=== PATIENT | female | born 1950 | race Caucasian/White ===

== ENCOUNTER 2016-03-28 13:10 | Emergency (ER) | payer MEDICARE ==
[2016-03-28] MEDS ORDERED: BABY ASPIRIN 81 MG CHEW PO ONE (13:27)
[2016-03-28] MEDS ORDERED: Lopressor 25MG Tab PO ONE (13:27)
[2016-03-28] MEDS ORDERED: NITRO-BID 2% UD PACKETS TOP ONE (13:27)
[2016-03-28] MEDS ORDERED: Sodium Chloride 0.9% 1000 ML 1,000 ML IV SCH (13:30)
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
[2016-03-28] MEDS ORDERED: Sodium Chloride 0.9% 1000 ML 1,000 ML ONE (13:38)
[2016-03-28] MEDS ORDERED: NITRO-BID 2% UD PACKETS ONE (13:38)
[2016-03-28] MEDS ORDERED: Lopressor 25MG Tab ONE (13:38)
[2016-03-28] MEDS ORDERED: Ativan 1 MG PO ONE (13:45)
[2016-03-28] MEDS ORDERED: Ativan 1 MG ONE (13:46)
--- NOTE | 2016-03-28 13:56 | XRAY ---
Indication: Chest pain. Comparison: July 28, 2014 Portable chest again demonstrates normal heart and lungs with a few calcified granulomas. Bony thorax intact with stable mild osteopenia and degenerative changes.
[2016-03-28 14:02] LABS: INR 0.88 (0.8-3.0); PROTIME 9.9 SECONDS (9.95-12.35)
[2016-03-28 14:18] LABS: ALBUMIN 3.6 g/dL (3.4-5.0); ALKALINE PHOSPHATASE 60 U/L (46-116); ANION GAP 15.2 MEQ/L (5-15); BILIRUBIN,TOTAL 0.2 mg/dL (0.2-1.0); BLOOD UREA NITROGEN 12 mg/dL (9-20); CHLORIDE 104 mEq/L (98-107); Carbon Dioxide 27.1 mEq/L (21-32); Glucose 117 MG/DL (70-110); Potassium 3.7 mEq/L (3.5-5.1); SGOT/AST 28 U/L (15-37); SGPT/ALT 27 U/L (12-78); SODIUM 143 mEq/L (136-145); Total Protein 6.9 gm/dL (6.4-8.2)
[2016-03-28 14:40] LABS: BASOPHIL % 0.5 % (0.0-0.4); Eosinophil % 2.8 % (0.00-5.0); Granulocytes % 49.2 % (36.0-66.0); Lymphocytes % 36.5 % (24.0-44.0); Mean Cell Volume 91.6 fl (78-100); Mean Platelet Volume 10.6 fl (6-9.5); Platelet Count 358 K/mm3 (150-450); Red Blood Count 3.91 M/mm3 (4.1-5.4); Red Cell Distribution Width 13.7 % (11.5-14.0); White Blood Count 8.8 K/mm3 (4.0-10.5)
[2016-03-28 14:43] LABS: Mean Corpuscular Hemoglobin 30.1 pg (26-32)
[2016-03-28 16:11] VITALS: BP 110/62; PULSE 69; O2SAT 98
== END 2016-03-28 16:30 | disposition short-term general hospital (02) ==
LOC: ED 13:10
DX: I21.3 ST elevation (STEMI) myocardial infarction of unspecified site (principal); R79.89 Other specified abnormal findings of blood chemistry; R07.9 Chest pain, unspecified; Z79.82 Long term (current) use of aspirin; Z79.899 Other long term (current) drug therapy; I50.9 Heart failure, unspecified; I10 Essential (primary) hypertension; I25.2 Old myocardial infarction
CPT/HCPCS: 36000; 36415; 71010; 80053; 83880; 84484; 85025; 85379; 85610; 93041; 96360; 96361; 99284; 99285

== ENCOUNTER 2016-11-18 23:11 | Emergency (ER) | payer MEDICARE ==
--- NOTE | 2016-11-18 23:56 | ERPHSYRPT ---
- History of Present Illness Time Seen by Provider: 11/18/16 23:21 Source: patient Exam Limitations: no limitations Patient Subjective Stated Complaint: pt states she thinks she has shingles in her ear. Triage Nursing Assessment: pt alert and oriented, asnwers questions approp. pt ambulatory with steady gait noted. respirations nonlabored with lungs cta. skin pink warm and dry. lt external ear canal with redness noted and small scabbed area behind ear. no drainage noted from ear or scabbed area. Physician History: PT HAS HAD LEFT EAR PAIN/RASH SINCE YESTERDAY. PT DENIES FEVER, VOMITING, COUGH , CHEST PAIN. Allergies/Adverse Reactions: codeine Adverse Reaction (Intermediate, Verified 03/28/16 13:22) Vomiting Home Medications: Estrogens,Conjugated [Premarin] 0 gm VG DAILY 07/28/14 [History] Gabapentin [Neurontin] 800 mg PO QID 07/28/14 [History] Aspirin [Aspir-Low] 81 mg DAILY 03/28/16 [History] Atorvastatin Calcium [Lipitor] DAILY 03/28/16 [History] Clopidogrel Bisulfate 75 mg [PLAVIX 75 MG Tablet] 75 mg DAILY 03/28/16 [ History] Lisinopril DAILY 03/28/16 [History] Fluticasone Propionate [Flovent Diskus] 50 mcg IH DAILY 11/18/16 [History] Metoprolol Tartrate 25 mg [Lopressor 25MG Tab] 25 mg PO BID 11/18/16 [ History] Hx Tetanus, Diphtheria Vaccination/Date Given: Yes Hx Influenza Vaccination/Date Given: No Hx Pneumococcal Vaccination/Date Given: No Immunizations Up to Date: Yes - Review of Systems Ears, Nose, & Throat: Ear Pain Skin: Rash All Other Systems: Reviewed and Negative - Past Medical History Pertinent Past Medical History: Yes Neurological History: No Pertinent History ENT History: No Pertinent History Cardiac History: Congestive Heart Failure, Hypertension, Myocardial Infarction ( NM) Respiratory History: No Pertinent History Endocrine Medical History: No Pertinent History Musculoskeletal History: Other GI Medical History: GERD History: No Pertinent History Psycho-Social History: No Pertinent History Female Reproductive Disorders: No Pertinent History Other Medical History: chronic pain neck pain - Past Surgical History Past Surgical History: Yes Neuro Surgical History: No Pertinent History Cardiac: Cardiac Catheterization, Cardiac Stent Respiratory: No Pertinent History Gastrointestinal: No Pertinent History Musculoskeletal: Orthopedic Surgery Female Surgical History: Section, Hysterectomy Other Surgical History: NECK - Social History Smoking Status: Never smoker Exposure to second hand smoke: No Alcohol Use: None Drug Use: none Patient Lives Alone: Yes Significant Family History: heart disease, hypertension - Nursing Vital Signs Nursing Vital Signs: Initial Vital Signs Temperature 98.7 F 11/18/16 23:20 Pulse Rate 70 11/18/16 23:20 Respiratory Rate 16 11/18/16 23:20 Blood Pressure 162/83 11/18/16 23:20 O2 Sat by Pulse Oximetry 100 11/18/16 23:20 Pain Scale Pain Intensity 10 - Physical Exam General Appearance: alert Eye Exam: PERRL/EOMI Ears, Nose, Throat Exam: TMs normal, pharynx normal, moist mucous membranes, other (LEFT EAC HAS MILDLY EDEMATOUS AND ERYTHEMATOUS MACULOPAPULAR RASH WITH A SORE IN THE LEFT PREAURICULAR AREA AND SOME IN THE LEFT POSTAURICULAR AREA.) Neck Exam: normal inspection Respiratory Exam: lungs clear Cardiovascular Exam: normal heart sounds Gastrointestinal/Abdomen Exam: soft, normal bowel sounds Back Exam: normal range of motion Extremity Exam: No pedal edema Neurologic Exam: alert, cooperative SpO2 Interpretation: normal SpO2: 100 Oxygen Delivery: Room Air - Course Nursing assessment & vital signs reviewed: Yes - Departure Time of Disposition: 00:01 Departure Disposition: Home Clinical Impression: HERPES ZOSTER Condition: Stable Critical Care Time: No Referrals: CHILO FARFAN MD [Primary Care Provider] - Instructions: Shingles Additional Instructions: FOLLOW UP WITH PRIVATE DOCTOR TOMORROW. Prescriptions: Acyclovir 800 mg [Zovirax 800 mg] 800 mg PO 5XD #50 tablet Capsaicin [Zostrix Hp] 1 gm TP QID #1 tube
[2016-11-19] MEDS ORDERED: ZOVIRAX 800 MG ONE (00:13)
[2016-11-19 00:31] VITALS: BP 155/57; PULSE 67; O2SAT 97
[2016-11-19] MEDS ORDERED: ZOVIRAX 800 MG PO SCH (07:00)
== END 2016-11-19 00:38 | disposition home or self-care (01) ==
LOC: ED 23:11
DX: B02.9 Zoster without complications (principal)
CPT/HCPCS: 99284; A9270-GY

== ENCOUNTER 2017-07-10 11:40 | Emergency (ER) | payer MEDICARE ==
[2017-07-10] MEDS ORDERED: DECADRON 10MG INJ. (12:22)
[2017-07-10] MEDS ORDERED: TORAdol 30 mg Injection (12:22)
[2017-07-10] MEDS: DECADRON 10MG INJ. IM (12:28)
[2017-07-10] MEDS: TORAdol 30 mg Injection IM (12:28)
== END 2017-07-10 12:57 | disposition home or self-care (01) ==
LOC: ED 11:40
CPT/HCPCS: 96372; J1100; J1885

== ENCOUNTER 2017-11-06 20:27 | Emergency (ER) | payer MEDICARE ==
[2017-11-06 21:01] LABS: BASOPHIL % 1.4 % (0.0-0.4); Basophil (Absolute #) 0.08 (0-0.4); Eosinophil % 2.4 % (0.00-5.0); Eosinophil (Absolute #) 0.14 (0-0.5); Granulocyte Absolute (ANC) 2.76 (1.4-6.9); Granulocytes % 47.4 % (36.0-66.0); Hematocrit 32.6 % (35-47); Hemoglobin 11.5 gm/dl (12.0-16.0); Lymphocytes % 36.1 % (24.0-44.0); Mean Cell Volume 91.6 fl (78-100); Mean Corpuscular Hemoglobin 32.3 pg (26-32); Mean Corpuscular Hgb Concent. 35.3 g/dl (32-36); Mean Platelet Volume 9.5 fl (6-9.5); Monocyte (Absolute #) 0.74 (0.0-1.3); Monocytes % 12.7 % (0.0-12.0); Platelet Count 403 K/mm3 (150-450); Red Blood Count 3.56 M/mm3 (4.1-5.4); White Blood Count 5.8 K/mm3 (4.0-10.5)
[2017-11-06] MEDS ORDERED: BABY ASPIRIN 81 MG CHEW PO ONE (21:11)
--- NOTE | 2017-11-06 21:11 | ERPHSYRPT ---
- History of Present Illness Time Seen by Provider: 11/06/17 21:02 Historian: patient Exam Limitations: no limitations Patient Subjective Stated Complaint: pt is alert and oriented. pt is ambulatory. pt come in with c/o chest pain on and off for the past 2 hours. pt had a MD February 2016. pt takes aspirin and plavix daily. pt denies nausea, vomiting, diaphoresis, lightheadedness, dizziness. pt radial pulses equal. pt skin warm, dry, and pink Triage Nursing Assessment: see above Physician History: Is a 67-year-old white female with history of MD, osteoarthritis, GERD, She arrives with complaint of pain in her anterior chest which is described as dull intermittent symptoms since 6:00 this evening She has no shortness of breath no nausea no vomiting Past medical history includes myocardial infarction, osteoarthritis, GERD, she' s had a bone graft in her neck. Past surgical history includes cardiac catheter cardiac stent orthopedic surgery , hysterectomy and neck surgery. Social history patient denies tobacco alcohol or illicit drug use Patient does state that she was told she had an elevated d-dimer by her steamfitter apprentice Timing/Duration: today (6 PM) Activities at Onset: none Quality: dullness Location: substernal, other (left anterior chest) Severity of Pain-Max: moderate Severity of Pain-Current: none Modifying Factors: Improves With: nothing Associated Symptoms: No nausea, No vomiting, No palpitations, No heartburn, No abdominal pain, No shortness of breath, No cough, No hurts to breathe, No diaphoresis, No chills, No fever, No fatigue, No weakness, No swelling/lump in chest, No syncope, No rash, No headache, No dizziness, No edema, No back pain Prior Chest Pain/Cardiac Workup: heart attack Nitro Today/Relief: no nitro taken today Aspirin Treatment Today: 81 mg x 1 (81 mg at home81 mg at home this am), 81 mg x 3 (243 mg in er) Allergies/Adverse Reactions: iodine Allergy (Verified 07/10/17 12:02) penicillin G Allergy (Verified 07/10/17 12:02) codeine Adverse Reaction (Intermediate, Verified 03/28/16 13:22) Vomiting Home Medications: Gabapentin [Neurontin] 800 mg PO QID 07/28/14 [History] Aspirin [Aspir-Low] 81 mg PO DAILY 03/28/16 [History] Atorvastatin Calcium [Lipitor] 20 mg PO DAILY 03/28/16 [History] Clopidogrel Bisulfate 75 mg [PLAVIX 75 MG Tablet] 75 mg PO DAILY 03/28/16 [History] Lisinopril 2.5 mg PO DAILY 03/28/16 [History] Metoprolol Tartrate 25 mg [Lopressor 25MG Tab] 25 mg PO BID 11/18/16 [ History] Hydrocodone Bit/Acetaminophen [[place] 5-325 Tablet] 1 each PO QID 07/10/17 [ History] Hx Tetanus, Diphtheria Vaccination/Date Given: Yes Hx Influenza Vaccination/Date Given: No Hx Pneumococcal Vaccination/Date Given: No Immunizations Up to Date: Yes - Review of Systems Constitutional: No Fever, No Chills Eyes: No Symptoms Ears, Nose, & Throat: No Symptoms Respiratory: No Cough, No Dyspnea Cardiac: Chest Pain Abdominal/Gastrointestinal: No Symptoms Genitourinary Symptoms: No Symptoms Musculoskeletal: No Back Pain, No Neck Pain Skin: No Rash Neurological: No Dizziness, No Focal Weakness, No Sensory Changes Psychological: No Symptoms Endocrine: No Symptoms All Other Systems: Reviewed and Negative - Past Medical History Pertinent Past Medical History: Yes Neurological History: Other ENT History: No Pertinent History Cardiac History: Myocardial Infarction ([place]) Respiratory History: No Pertinent History Endocrine Medical History: No Pertinent History Musculoskeletal History: Osteoarthritis GI Medical History: GERD History: No Pertinent History Psycho-Social History: No Pertinent History Female Reproductive Disorders: No Pertinent History Other Medical History: 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 - Past Surgical History Past Surgical History: Yes Neuro Surgical History: No Pertinent History Cardiac: Cardiac Catheterization, Cardiac Stent Respiratory: No Pertinent History Gastrointestinal: No Pertinent History Musculoskeletal: Orthopedic Surgery Female Surgical History: Section, Hysterectomy Other Surgical History: NECK - Social History Smoking Status: Never smoker Exposure to second hand smoke: No Alcohol Use: None Drug Use: none Patient Lives Alone: Yes Significant Family History: heart disease, hypertension - Nursing Vital Signs Nursing Vital Signs: Initial Vital Signs Temperature 98.4 F 11/06/17 20:27 Pulse Rate 88 11/06/17 20:27 Respiratory Rate 16 11/06/17 20:27 Blood Pressure 168/101 11/06/17 20:27 O2 Sat by Pulse Oximetry 96 11/06/17 20:27 Pain Scale Pain Intensity 0 - Physical Exam General Appearance: no apparent distress, alert Eye Exam: PERRL/EOMI, eyes nml inspection Ears, Nose, Throat Exam: normal ENT inspection, moist mucous membranes Neck Exam: normal inspection, non-tender, supple, full range of motion Respiratory Exam: normal breath sounds, lungs clear, No respiratory distress Cardiovascular Exam: regular rate/rhythm, normal heart sounds Gastrointestinal/Abdomen Exam: soft, No tenderness, No mass Back Exam: normal inspection, No CVA tenderness, No vertebral tenderness Extremity Exam: normal inspection, normal range of motion Neurologic Exam: alert, oriented x 3, cooperative, electrical integrator II-XII nml as tested, normal mood/affect, sensation nml, No motor deficits Skin Exam: normal color, warm, dry SpO2 Interpretation: normal (98%) SpO2: 98 Oxygen Delivery: Room Air - Course Nursing assessment & vital signs reviewed: Yes EKG Interpreted by Me: RATE (87 bmp), Sinus Rhythm, NORMAL AXIS, Other (EKG: Sinus rhythm, 87 bpm, normal axis, no acute ST or T wave changes, , normal EKG) - Radiology Exams Chest X-ray Interpretation: Interpreted by me (No acute disease process noted) Ordered Tests: Active Orders 24 hr Category Date Time Status Flat Breakdown Processor STAT Care 11/06/17 20:37 Active EKG-ER Only STAT Care 11/06/17 20:36 Active IV Insertion STAT Care 11/06/17 20:36 Active Pulse Oximetry (ED) STAT Care 11/06/17 20:36 Active CHEST 1 VIEW (PORTABLE) Stat Exams 11/06/17 21:01 Taken AMYLASE Stat Lab 11/06/17 20:58 Completed CBC W DIFF Stat Lab 11/06/17 20:58 Completed CMP Stat Lab 11/06/17 20:58 Completed D-DIMER QUANTITATION Stat Lab 11/06/17 20:58 Completed LIPASE Stat Lab 11/06/17 20:58 Completed PROTIME WITH INR Stat Lab 11/06/17 20:58 Completed PTT Stat Lab 11/06/17 20:58 Completed TROPONIN Q3H Lab 11/06/17 00:08 Completed TROPONIN Q3H Lab 11/06/17 20:58 Completed TROPONIN Q3H Lab 11/07/17 02:45 Ordered TROPONIN Q3H Lab 11/07/17 05:45 Ordered TROPONIN Q3H Lab 11/07/17 08:45 Ordered Medication Summary Discontinued Medications Generic Name Dose Route Start Last Admin Trade Name Frederick PRN Reason Stop Dose Admin Aspirin 243 mg 11/06/17 21:11 11/06/17 21:18 Baby Aspirin 81 Mg Chew PO 11/06/17 21:12 243 mg STAT ONE Administration Aspirin Confirm 11/06/17 21:18 Baby Aspirin 81 Mg Chew Administered 11/06/17 21:19 Dose 243 mg .ROUTE .STK-MED ONE Lab/Rad Data: Laboratory Result Diagrams 11/06/17 20:58 11/06/17 20:58 Laboratory Results 11/06/17 11/06/17 11/06/17 Range/Units 20:58 20:58 20:58 WBC (4.0-10.5) K/mm3 RBC (4.1-5.4) M/mm3 Hgb (12.0-16.0) gm/dl Hct (35-47) % MCV (78-100) fl MCH (26-32) pg MCHC (32-36) g/dl RDW (11.5-14.0) % Plt Count (150-450) K/mm3 MPV (6-9.5) fl Gran % (36.0-66.0) % Eos # (Auto) (0-0.5) Absolute Lymphs (auto) (1.0-4.6) Absolute Monos (auto) (0.0-1.3) Lymphocytes % (24.0-44.0) % Monocytes % (0.0-12.0) % Eosinophils % (0.00-5.0) % Basophils % (0.0-0.4) % Absolute Granulocytes (1.4-6.9) Basophils # (0-0.4) PT 10.6 (9.95-12.35) SECONDS INR 0.91 (0.8-3.0) APTT 28.5 (25.3-37.0) SECONDS D-Dimer 424 (215-500) ng/mL Sodium (137-145) mmol/L Potassium (3.5-5.1) mmol/L Chloride (98-107) mmol/L Carbon Dioxide (22-30) mmol/L Anion Gap (5-15) MEQ/L BUN (7-17) mg/dL Creatinine (0.52-1.04) mg/dL Estimated GFR ML/MIN Glucose (74-106) mg/dL Calcium (8.4-10.2) mg/dL Total Bilirubin (0.2-1.3) mg/dL AST (14-36) U/L ALT (0-35) U/L Alkaline Phosphatase (38-126) U/L Troponin I < 0.012 (0.000-0.034) ng/mL Serum Total Protein (6.3-8.2) g/dL Albumin (3.5-5.0) g/dL Amylase 59 (30-110) U/L Lipase 114 (23-300) U/L 11/06/17 11/06/17 11/06/17 Range/Units 20:58 20:58 00:08 WBC 5.8 (4.0-10.5) K/mm3 RBC 3.56 L (4.1-5.4) M/mm3 Hgb 11.5 L (12.0-16.0) gm/dl Hct 32.6 L (35-47) % MCV 91.6 (78-100) fl MCH 32.3 H (26-32) pg MCHC 35.3 (32-36) g/dl RDW 12.0 (11.5-14.0) % Plt Count 403 (150-450) K/mm3 MPV 9.5 (6-9.5) fl Gran % 47.4 (36.0-66.0) % Eos # (Auto) 0.14 (0-0.5) Absolute Lymphs (auto) 2.10 (1.0-4.6) Absolute Monos (auto) 0.74 (0.0-1.3) Lymphocytes % 36.1 (24.0-44.0) % Monocytes % 12.7 H (0.0-12.0) % Eosinophils % 2.4 (0.00-5.0) % Basophils % 1.4 (0.0-0.4) % Absolute Granulocytes 2.76 (1.4-6.9) Basophils # 0.08 (0-0.4) PT (9.95-12.35) SECONDS INR (0.8-3.0) APTT (25.3-37.0) SECONDS D-Dimer (215-500) ng/mL Sodium 134 L (137-145) mmol/L Potassium 4.3 (3.5-5.1) mmol/L Chloride 102 (98-107) mmol/L Carbon Dioxide 21 L (22-30) mmol/L Anion Gap 14.5 (5-15) MEQ/L BUN 15 (7-17) mg/dL Creatinine 0.73 (0.52-1.04) mg/dL Estimated GFR > 60.0 ML/MIN Glucose 98 (74-106) mg/dL Calcium 9.3 (8.4-10.2) mg/dL Total Bilirubin 0.20 (0.2-1.3) mg/dL AST 49 H (14-36) U/L ALT 35 (0-35) U/L Alkaline Phosphatase 73 (38-126) U/L Troponin I < 0.012 (0.000-0.034) ng/mL Serum Total Protein 6.4 (6.3-8.2) g/dL Albumin 4.1 (3.5-5.0) g/dL Amylase (30-110) U/L Lipase (23-300) U/L - Progress Progress: improved Air Movement: fair Progress Note: 11/06/17 22:02 This is a 67-year-old white female with history of myocardial infarction osteoarthritis GERD was had cardiac catheter cardiac stents in the past she's been complaining of pain in her anterior chest described as a dullness in the substernal in the left anterior chest radiating to the left scapula symptoms going on since this evening. Patient states she is not short of breath no nausea no vomiting. She tells me that she was called by her steamfitter apprentice's office and told that she had an elevated d-dimer. Patient states that the pain has been intermittent she cannot state how long it lasts. Patient on arrival does not appear to be in acute distress vitals are stable patient did have a blood pressure mildly elevated at 168/101 she is on metoprolol and lisinopril. Patient's chest x-ray no acute disease process noted EKG sinus rhythm [address] or T wave changes essentially normal EKG. Patient's d-dimer is within normal limits at 424 INR 0.91 patient's chemistry and CBC are within normal limits troponin is less than 0.012 amylase and lipase are normal. Patient was given aspirin 243 mg here in the emergency room she states she took 181 mg aspirin earlier. Patient is not having pain at this time she is interested in going home I've discussed the case with Dr. Baez who is the steamfitter apprentice on-call for Dr. Lacy. Dr. Gunderson feels like the patient can go home Will go ahead and repeat patient 's troponin plan on discharge if the second troponin is normal. had considered giving patient metoprolol a second dose as to the one she had received today however her blood pressure is now 169/77 therefore we'll hold on the metoprolol. 11/07/17 00:45 Patient's repeat troponin within normal limits. Patient in no pain at this time. Patient's vital signs are stable. Will discharge patient. Patient to follow-up with Dr. Lacy. - Departure Time of Disposition: 00:46 Departure Disposition: Home Clinical Impression: Chest pain Qualifiers: Chest pain type: unspecified Qualified Code(s): R07.9 - Chest pain, unspecified Condition: Fair Critical Care Time: No Referrals: CHILO FARFAN MD [Primary Care Provider] - Additional Instructions: Return home, rest. Continue current medications and treatment. Follow-up with Dr. Lacy, call tomorrow to schedule recheck. Return for acute distress or for severe symptoms.
[2017-11-06 21:17] LABS: ALBUMIN 4.1 g/dL (3.5-5.0); ALKALINE PHOSPHATASE 73 U/L (38-126); ANION GAP 14.5 MEQ/L (5-15); BLOOD UREA NITROGEN 15 mg/dL (7-17); CHLORIDE 102 mmol/L (98-107); Calcium 9.3 mg/dL (8.4-10.2); Carbon Dioxide 21 mmol/L (22-30); Creatinine 1 0.73 mg/dL (0.52-1.04); Glucose 98 mg/dL (74-106); INR 0.91 (0.8-3.0); Potassium 4.3 mmol/L (3.5-5.1); SGOT/AST 49 U/L (14-36); SGPT/ALT 35 U/L (0-35); SODIUM 134 mmol/L (137-145); Total Protein 6.4 g/dL (6.3-8.2)
[2017-11-06] MEDS ORDERED: BABY ASPIRIN 81 MG CHEW ONE (21:18)
[2017-11-06 21:19] LABS: PTT 28.5 SECONDS (25.3-37.0)
[2017-11-06 21:27] LABS: AMYLASE 59 U/L (30-110); LIPASE 114 U/L (23-300)
[2017-11-07 00:55] VITALS: BP 167/87; PULSE 78; O2SAT 99
--- NOTE | 2017-11-07 09:02 | XRAY ---
Indication: Chest pain. Comparison: March 28, 2016. Portable chest again demonstrates normal heart and lungs with incidental calcified granulomas. Bony thorax intact again with mild osteopenia, degenerative changes, and minimal double curvature scoliosis. No new/acute findings.
== END 2017-11-07 00:55 | disposition home or self-care (01) ==
LOC: ED 20:27
DX: R07.9 Chest pain, unspecified (principal); I25.2 Old myocardial infarction; Z79.01 Long term (current) use of anticoagulants; Z79.899 Other long term (current) drug therapy
CPT/HCPCS: 36000; 36415; 71045; 80053; 82150; 83690; 84484; 85025; 85379; 85610; 85730; 93005; 93041; 99284; A9270-GY

== ENCOUNTER 2018-02-20 09:57 | Emergency (ER) | payer MEDICARE ==
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
[2018-02-20] MEDS ORDERED: Zofran 4 MG/2 ML VIAL IV ONE (10:58)
[2018-02-20 11:32] LABS: Appearance CLEAR (CLEAR); Bilirubin NEGATIVE (NEGATIVE); Blood NEGATIVE Ery/ul (0-5); Glucose NEGATIVE (NEGATIVE); Ketones NEGATIVE (NEGATIVE); Leukocyte Esterase NEGATIVE (NEGATIVE); Nitrite NEGATIVE (NEGATIVE); Protein,Urine Dip NEGATIVE (Negative); Specific Gravity 1.005 (1.005-1.025); Urobilinogen NEGATIVE mg/dL (0-1)
--- NOTE | 2018-02-20 11:35 | XRAY ---
Indication: Left-sided headache and nausea 5 days. Multiple contiguous axial images obtained through the head without contrast. Comparison: October 21, 2014. Again normal appearing brain parenchyma, ventricles, and bony calvarium. Visualized paranasal sinuses and mastoid air cells are clear. Impression: Stable normal CT head without contrast exam. CT DI 68.65
[2018-02-20] MEDS ORDERED: Zofran 4 MG/2 ML VIAL ONE (11:40)
[2018-02-20] MEDS ORDERED: TORAdol 30 mg Injection IV ONE (11:46)
[2018-02-20 11:49] VITALS: PULSE 69
[2018-02-20] MEDS ORDERED: TORAdol 30 mg Injection ONE (11:53)
[2018-02-20 11:58] LABS: BASOPHIL % 0.8 % (0.0-0.4); Basophil (Absolute #) 0.04 (0-0.4); Eosinophil % 1.7 % (0.00-5.0); Eosinophil (Absolute #) 0.09 (0-0.5); Granulocyte Absolute (ANC) 2.43 (1.4-6.9); Hematocrit 37.4 % (35-47); Hemoglobin 12.4 gm/dl (12.0-16.0); Lymphocyte (Absolute #) 1.91 (1.0-4.6); Lymphocytes % 36.2 % (24.0-44.0); Mean Cell Volume 91.7 fl (78-100); Mean Corpuscular Hgb Concent. 33.2 g/dl (32-36); Mean Platelet Volume 9.2 fl (6-9.5); Monocyte (Absolute #) 0.81 (0.0-1.3); Monocytes % 15.3 % (0.0-12.0); Platelet Count 480 K/mm3 (150-450); Red Blood Count 4.08 M/mm3 (4.1-5.4); White Blood Count 5.3 K/mm3 (4.0-10.5)
[2018-02-20 12:01] LABS: Mean Corpuscular Hemoglobin 30.3 pg (26-32)
[2018-02-20 12:14] LABS: ANION GAP 14.3 MEQ/L (5-15); BLOOD UREA NITROGEN 13 mg/dL (7-17); CHLORIDE 103 mmol/L (98-107); Calcium 9.6 mg/dL (8.4-10.2); Carbon Dioxide 25 mmol/L (22-30); Creatinine 1 0.62 mg/dL (0.52-1.04); Glucose 94 mg/dL (74-106); Potassium 4.3 mmol/L (3.5-5.1); SODIUM 138 mmol/L (137-145)
[2018-02-20 13:23] VITALS: BP 123/76; O2SAT 97
== END 2018-02-20 13:34 | disposition home or self-care (01) ==
LOC: ED 09:57
DX: G43.909 Migraine, unspecified, not intractable, without status migrainosus (principal); R11.2 Nausea with vomiting, unspecified; Z79.899 Other long term (current) drug therapy
CPT/HCPCS: 36000; 36415; 70450; 80048; 81001; 85025; 96374; 96375; 99284; J1885; J2405

== ENCOUNTER 2018-07-12 11:59 | Observation (INO) | payer MEDICARE ==
[2018-07-12] MEDS ORDERED: Nitrostat 0.4 MG (ED) SL ONE ×2 (12:43→12:51)
[2018-07-12] MEDS ORDERED: BABY ASPIRIN 81 MG CHEW PO ONE (12:43)
[2018-07-12] MEDS ORDERED: NITRO-BID 2% UD PACKETS TOP ONE (12:43)
[2018-07-12] MEDS ORDERED: BABY ASPIRIN 81 MG CHEW ONE (12:50)
[2018-07-12] MEDS ORDERED: Sodium Chloride 0.9% 1000 ML 1,000 ML ONE (12:51)
[2018-07-12] MEDS ORDERED: NITRO-BID 2% UD PACKETS ONE (12:51)
--- NOTE | 2018-07-12 12:52 | ERPHSYRPT ---
- History of Present Illness Time Seen by Provider: 07/12/18 12:20 Historian: patient Exam Limitations: clinical condition Patient Subjective Stated Complaint: PT states "Yesterday this all started, I am having sharp pains that come and go right on my left side. It really hurts to breath and it hurts to move and it hurts to touch." Triage Nursing Assessment: Pt presented alert and oriented X 3, skin pwd. Pt arrived through the back doors by herself, ambulates with an upright steady gait , able to speak in clear full sentences. PT will grasp at her left lower ribs and grunt. Physician History: PATIENT WITH A HISTORY OF HYPERTENSION, CORONARY ARTERY DISEASE, MYOCARDIAL INFARCTION, STENT INSERTION X 2, COMPLAINS OF SHARP LEFT LOWER RIB PAINS X 24 HOURS, EXACERBATED UPON MOTION OF TORSO AND INSPIRATION. DENIES RADIATION OF PAIN TO NECK, JAW, BACK AND ARMS. DENIES DYSPNEA, PALPITATIONS OR DIAPHORESIS. Timing/Duration: yesterday Activities at Onset: activity Quality: sharpness, stabbing Location: substernal Chest Pain Radiation: no radiation Severity of Pain-Max: severe Severity of Pain-Current: severe Modifying Factors: Improves With: change in position Associated Symptoms: hurts to breathe Prior Chest Pain/Cardiac Workup: cardiac cath, heart attack (STENT X 2 ) Nitro Today/Relief: 0.4 mg x 1 Aspirin Treatment Today: 81 mg x 3 Allergies/Adverse Reactions: iodine Allergy (Verified 02/20/18 10:31) penicillin G Allergy (Verified 02/20/18 10:31) codeine Adverse Reaction (Intermediate, Verified 02/20/18 10:31) Vomiting Home Medications: Gabapentin [Neurontin] 800 mg PO QID 07/28/14 [History] Aspirin [Aspir-Low] 81 mg PO DAILY 03/28/16 [History] Atorvastatin Calcium [Lipitor] 20 mg PO DAILY 03/28/16 [History] Clopidogrel Bisulfate 75 mg [PLAVIX 75 MG Tablet] 75 mg PO DAILY 03/28/16 [History] Lisinopril 2.5 mg PO DAILY 03/28/16 [History] Metoprolol Tartrate 25 mg [Lopressor 25MG Tab] 25 mg PO BID 11/18/16 [ History] Hydrocodone Bit/Acetaminophen [[place] 5-325 Tablet] 1 each PO QID 07/10/17 [ History] Hx Tetanus, Diphtheria Vaccination/Date Given: Yes Hx Influenza Vaccination/Date Given: Yes Hx Pneumococcal Vaccination/Date Given: Yes Immunizations Up to Date: Yes - Review of Systems Constitutional: No Fever, No Chills Eyes: No Symptoms Ears, Nose, & Throat: No Symptoms Respiratory: No Symptoms, No Cough, No Dyspnea Cardiac: No Chest Pain, No Edema, No Syncope Abdominal/Gastrointestinal: No Symptoms, No Abdominal Pain, No Nausea, No Vomiting, No Diarrhea Genitourinary Symptoms: No Symptoms, No Dysuria Musculoskeletal: No Symptoms, No Back Pain, No Neck Pain Skin: No Symptoms, No Rash Neurological: No Dizziness, No Focal Weakness, No Sensory Changes Psychological: No Symptoms Endocrine: No Symptoms All Other Systems: Reviewed and Negative - Past Medical History Pertinent Past Medical History: Yes Neurological History: Other ENT History: No Pertinent History Cardiac History: Myocardial Infarction ([place]) Respiratory History: No Pertinent History Endocrine Medical History: No Pertinent History Musculoskeletal History: Osteoarthritis GI Medical History: GERD History: No Pertinent History Psycho-Social History: No Pertinent History Female Reproductive Disorders: No Pertinent History Other Medical History: 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 - Past Surgical History Past Surgical History: Yes Neuro Surgical History: No Pertinent History Cardiac: Cardiac Catheterization, Cardiac Stent Respiratory: No Pertinent History Gastrointestinal: No Pertinent History Musculoskeletal: Orthopedic Surgery Female Surgical History: Section, Hysterectomy Other Surgical History: NECK - Social History Smoking Status: Never smoker Exposure to second hand smoke: Yes Alcohol Use: None Drug Use: none Patient Lives Alone: Yes Significant Family History: heart disease, hypertension - Female History Hx Now: No - Nursing Vital Signs Nursing Vital Signs: Initial Vital Signs Temperature 98.0 F 07/12/18 12:00 Pulse Rate 72 07/12/18 12:00 Respiratory Rate 20 07/12/18 12:00 Blood Pressure 179/80 07/12/18 12:00 O2 Sat by Pulse Oximetry 100 07/12/18 12:00 Pain Scale Pain Intensity 0 - Physical Exam General Appearance: no apparent distress, alert Eye Exam: PERRL/EOMI, eyes nml inspection Ears, Nose, Throat Exam: normal ENT inspection, moist mucous membranes Neck Exam: normal inspection, non-tender, supple, full range of motion Respiratory Exam: normal breath sounds, chest tenderness (MARKED TENDERNESS LEFT LOWER RIBS 8TH TO 9TH RIBS), lungs clear, No respiratory distress Cardiovascular Exam: regular rate/rhythm, normal heart sounds Gastrointestinal/Abdomen Exam: soft, No tenderness, No mass Back Exam: normal inspection, No CVA tenderness, No vertebral tenderness Extremity Exam: normal inspection, normal range of motion Neurologic Exam: alert, oriented x 3, cooperative, normal mood/affect, sensation nml, No motor deficits Skin Exam: normal color, warm, dry SpO2: 100 - Course EKG Interpreted by Me: RATE, Sinus Rhythm (RATE 67), NORMAL AXIS - Radiology Exams Chest X-ray Interpretation: Interpreted by me, Negative Ordered Tests: Active Orders 24 hr Category Date Time Status Up With Assistance ROUTINE Activity 07/12/18 15:00 Active Call Admit Doctor for Orders ROUTINE Care 07/12/18 14:59 Active Lift Mechanic STAT Care 07/12/18 12:44 Active Code Status Order ROUTINE Care 07/12/18 14:59 Active EKG-ER Only STAT Care 07/12/18 12:43 Active IV Care Q6H Care 07/12/18 14:59 Active IV Insertion STAT Care 07/12/18 12:43 Active Implement Chest Pain Pathway ROUTINE Care 07/12/18 14:59 Active Oxygen-ED Only Nasal Cannula 2 lpm Care 07/12/18 12:[address] in Observation ROUTINE Care 07/12/18 14:59 Active Sandro Hose, Apply ROUTINE Care 07/12/18 14:59 Active Vital Signs Q4H Care 07/12/18 14:59 Active Weight,Daily 0600 Care 07/12/18 14:59 Active Regular Diet Diet 07/12/18 Breakfast Active CHEST 1 VIEW (PORTABLE) Stat Exams 07/12/18 12:43 Completed PULMONARY PERF VENTILATION [NUCMED] Stat Exams 07/12/18 15:06 Ordered CBC W DIFF Stat Lab 07/12/18 12:53 Completed CMP Stat Lab 07/12/18 12:53 Completed D-DIMER QUANTITATION Stat Lab 07/12/18 12:53 Completed LIPID PROFILE AM.LAB Lab 07/13/18 04:00 Ordered NT PRO BNP Stat Lab 07/12/18 12:53 Completed PROTIME WITH INR Stat Lab 07/12/18 12:53 Completed TROPONIN Q3H Lab 07/12/18 12:53 Completed TROPONIN Q3H Lab 07/12/18 15:45 Ordered TROPONIN Q3H Lab 07/12/18 18:45 Ordered TROPONIN Q3H Lab 07/12/18 21:45 Ordered TROPONIN Q3H Lab 07/13/18 00:45 Ordered EKG Q8HX2,QAMX3,PRN RT 07/12/18 14:59 Active Oxygen Nasal Cannula 2 lpm RT 07/12/18 14:59 Active Pulse Oximetry CONTINUOUS RT 07/12/18 14:59 Active Transfer Order Routine Transfer 07/12/18 Ordered Medication Summary Generic Name Dose Route Start Last Admin Trade Name Freq PRN Reason Stop Dose Admin Acetaminophen 325 mg 07/12/18 15:02 Tylenol 325 Mg PO 08/11/18 15:01 Q4H PRN PRN PAIN, FEVER, HEADACHE Hydrocodone Bitart/Acetaminophen 1 tab 07/12/18 15:03 [place] 5/325 Mg PO 07/17/18 15:02 QID PRN PRN PAIN Al Hydrox/Mg Hydrox/Simethicone 30 ml 07/12/18 14:59 Maalox Es 30 Ml Unit Dose PO 08/11/18 14:58 Q4H PRN PRN INDIGESTION Aspirin 325 mg 07/13/18 10:00 Ecotrin 325 Mg PO 08/12/18 09:59 DAILY [facility] Clopidogrel Bisulfate 75 mg 07/13/18 10:00 Plavix 75 Mg Tablet PO 08/12/18 09:59 DAILY [facility] Enoxaparin Sodium 40 mg 07/13/18 10:00 Enoxaparin Sodium SQ 08/12/18 09:59 DAILY [facility] Famotidine 20 mg 07/12/18 22:00 Pepcid 20 Mg PO 08/11/18 21:59 BID RALPH Gabapentin 800 mg 07/12/18 17:00 Neurontin 400 Mg PO 08/11/18 16:59 QID RALPH Sodium Chloride 1,000 mls @ 50 mls/hr 07/12/18 12:45 07/12/18 12:53 Sodium Chloride 0.9% 1000 Ml IV 08/11/18 12:44 50 mls/hr .Q20H RALPH Administration Lisinopril 2.5 mg 07/13/18 10:00 Zestril 10 Mg PO 08/12/18 09:59 DAILY [facility] Magnesium Hydroxide 30 - 60 ml 07/12/18 14:59 Milk Of Magnesia 30 Ml PO 08/11/18 14:58 QDP PRN CONSTIPATION Metoprolol Tartrate 25 mg 07/12/18 22:00 Lopressor 25mg Tab PO 08/11/18 21:59 BID RALPH Morphine Sulfate 2 mg 07/12/18 15:05 Morphine Sulfate 4 Mg Inj IV 07/17/18 15:04 Q4H PRN PRN PAIN Nitroglycerin 0.4 mg 07/12/18 14:59 Nitrostat 0.4 Mg Tablet SL 08/11/18 14:58 .Q5MIN PRN CHEST PAIN Nitroglycerin 1 gm 07/12/18 22:00 Nitro-Bid 2% Ud Packets TOP 08/11/18 21:59 Q8HT [facility] Ondansetron HCl 4 mg 07/12/18 14:59 Zofran 4 Mg/2 Ml Vial IV 08/11/18 14:58 Q4H PRN PRN NAUSEA/VOMITING Senna/Docusate Sodium 2 udtab 07/12/18 14:59 Senokot-S Tablet PO 08/11/18 14:58 BID PRN PRN CONSTIPATION Discontinued Medications Generic Name Dose Route Start Last Admin Trade Name Freq PRN Reason Stop Dose Admin Aspirin 243 mg 07/12/18 12:43 07/12/18 12:52 Baby Aspirin 81 Mg Chew PO 07/12/18 12:44 243 mg STAT ONE Administration Aspirin Confirm 07/12/18 12:50 Baby Aspirin 81 Mg Chew Administered 07/12/18 12:51 Dose 243 mg .ROUTE .STK-MED ONE Enoxaparin Sodium 40 mg 07/12/18 14:56 07/12/18 15:08 Enoxaparin Sodium SQ 07/12/18 14:57 40 mg STAT ONE Administration Enoxaparin Sodium Confirm 07/12/18 15:05 Enoxaparin Sodium Administered 07/12/18 15:06 Dose 80 mg SQ .STK-MED ONE Nitroglycerin 0.4 mg 07/12/18 12:43 07/12/18 12:52 Nitrostat 0.4 Mg (Ed) SL 07/12/18 12:44 0.4 mg STAT ONE Administration Nitroglycerin 1 gm 07/12/18 12:43 07/12/18 12:52 Nitro-Bid 2% Ud Packets TOP 07/12/18 12:44 1 gm STAT ONE Administration Nitroglycerin Confirm 07/12/18 12:51 Nitro-Bid 2% Ud Packets Administered 07/12/18 12:52 Dose 1 gm .ROUTE .STK-MED ONE Nitroglycerin Confirm 07/12/18 12:51 Nitrostat 0.4 Mg (Ed) Administered 07/12/18 12:52 Dose 0.4 mg SL .STK-MED ONE Lab/Rad Data: Laboratory Result Diagrams 07/12/18 12:53 07/12/18 12:53 Laboratory Results 07/12/18 07/12/18 07/12/18 Range/Units 12:53 12:53 12:53 WBC (4.0-10.5) K/mm3 RBC (4.1-5.4) M/mm3 Hgb (12.0-16.0) gm/dl Hct (35-47) % MCV (78-100) fl MCH (26-32) pg MCHC (32-36) g/dl RDW (11.5-14.0) % Plt Count (150-450) K/mm3 MPV (6-9.5) fl Gran % (36.0-66.0) % Eos # (Auto) (0-0.5) Absolute Lymphs (auto) (1.0-4.6) Absolute Monos (auto) (0.0-1.3) Lymphocytes % (24.0-44.0) % Monocytes % (0.0-12.0) % Eosinophils % (0.00-5.0) % Basophils % (0.0-0.4) % Absolute Granulocytes (1.4-6.9) Basophils # (0-0.4) PT 9.9 L (9.95-12.35) SECONDS INR 0.85 (0.8-3.0) D-Dimer 593 H* (215-500) ng/mL Sodium 128 L (137-145) mmol/L Potassium 4.5 (3.5-5.1) mmol/L Chloride 90 L (98-107) mmol/L Carbon Dioxide 26 (22-30) mmol/L Anion Gap 17.1 H (5-15) MEQ/L BUN 9 (7-17) mg/dL Creatinine 0.56 (0.52-1.04) mg/dL Estimated GFR > 60.0 ML/MIN Glucose 91 (74-106) mg/dL Calcium 9.6 (8.4-10.2) mg/dL Total Bilirubin 0.40 (0.2-1.3) mg/dL AST 51 H (14-36) U/L ALT 42 H (0-35) U/L Alkaline Phosphatase 68 (38-126) U/L Troponin I < 0.012 (0.000-0.034) ng/mL NT-Pro-B Natriuret Pep 362 (0-900) pg/mL Serum Total Protein 7.5 (6.3-8.2) g/dL Albumin 4.4 (3.5-5.0) g/dL 07/12/18 Range/Units 12:53 WBC 6.3 (4.0-10.5) K/mm3 RBC 3.88 L (4.1-5.4) M/mm3 Hgb 12.1 (12.0-16.0) gm/dl Hct 34.9 L (35-47) % MCV 89.9 (78-100) fl MCH 31.1 (26-32) pg MCHC 34.7 (32-36) g/dl RDW 12.5 (11.5-14.0) % Plt Count 442 (150-450) K/mm3 MPV 9.7 H (6-9.5) fl Gran % 48.8 (36.0-66.0) % Eos # (Auto) 0.18 (0-0.5) Absolute Lymphs (auto) 2.27 (1.0-4.6) Absolute Monos (auto) 0.76 (0.0-1.3) Lymphocytes % 36.0 (24.0-44.0) % Monocytes % 12.0 (0.0-12.0) % Eosinophils % 2.9 (0.00-5.0) % Basophils % 0.3 (0.0-0.4) % Absolute Granulocytes 3.08 (1.4-6.9) Basophils # 0.02 (0-0.4) PT (9.95-12.35) SECONDS INR (0.8-3.0) D-Dimer (215-500) ng/mL Sodium (137-145) mmol/L Potassium (3.5-5.1) mmol/L Chloride (98-107) mmol/L Carbon Dioxide (22-30) mmol/L Anion Gap (5-15) MEQ/L BUN (7-17) mg/dL Creatinine (0.52-1.04) mg/dL Estimated GFR ML/MIN Glucose (74-106) mg/dL Calcium (8.4-10.2) mg/dL Total Bilirubin (0.2-1.3) mg/dL AST (14-36) U/L ALT (0-35) U/L Alkaline Phosphatase (38-126) U/L Troponin I (0.000-0.034) ng/mL NT-Pro-B Natriuret Pep (0-900) pg/mL Serum Total Protein (6.3-8.2) g/dL Albumin (3.5-5.0) g/dL - Progress Progress Note: 07/12/18 12:51 IV NORMAL SALINE 50ML/HR, ASPIRIN 81MG X 3 DOSES, NTG 1/150 SL, NITROPASTE 1" ANTERIOR CHEST WALL, PATIENT HAS COMPLETE RELIEF FOR NITRATES 07/12/18 14:[address] Martinez (DISCUSSED WITH DR MARTINEZ AT 1440 FOR OBSERVATION) - Departure Departure Disposition: Observation Clinical Impression: ACUTE CHEST PAIN Condition: Stable Critical Care Time: No Referrals: CHILO FARFAN MD [Primary Care Provider] -
[2018-07-12] MEDS: Sodium Chloride 0.9% 1000 ML 1,000 ML IV SCH (12:53)
[2018-07-12 13:03] LABS: BASOPHIL % 0.3 % (0.0-0.4); Basophil (Absolute #) 0.02 (0-0.4); Eosinophil % 2.9 % (0.00-5.0); Eosinophil (Absolute #) 0.18 (0-0.5); Granulocyte Absolute (ANC) 3.08 (1.4-6.9); Granulocytes % 48.8 % (36.0-66.0); Hematocrit 34.9 % (35-47); Hemoglobin 12.1 gm/dl (12.0-16.0); INR 0.85 (0.8-3.0); Lymphocyte (Absolute #) 2.27 (1.0-4.6); Mean Cell Volume 89.9 fl (78-100); Mean Corpuscular Hgb Concent. 34.7 g/dl (32-36); Mean Platelet Volume 9.7 fl (6-9.5); Monocyte (Absolute #) 0.76 (0.0-1.3); PROTIME 9.9 SECONDS (9.95-12.35); Platelet Count 442 K/mm3 (150-450); Red Blood Count 3.88 M/mm3 (4.1-5.4); Red Cell Distribution Width 12.5 % (11.5-14.0); White Blood Count 6.3 K/mm3 (4.0-10.5)
[2018-07-12 13:04] LABS: Mean Corpuscular Hemoglobin 31.1 pg (26-32)
[2018-07-12 13:16] LABS: ALBUMIN 4.4 g/dL (3.5-5.0); ALKALINE PHOSPHATASE 68 U/L (38-126); ANION GAP 17.1 MEQ/L (5-15); BLOOD UREA NITROGEN 9 mg/dL (7-17); CHLORIDE 90 mmol/L (98-107); Calcium 9.6 mg/dL (8.4-10.2); Carbon Dioxide 26 mmol/L (22-30); Creatinine 1 0.56 mg/dL (0.52-1.04); Glucose 91 mg/dL (74-106); NT PRO BNP 362 pg/mL (0-900); Potassium 4.5 mmol/L (3.5-5.1); SGOT/AST 51 U/L (14-36); SGPT/ALT 42 U/L (0-35); SODIUM 128 mmol/L (137-145); Total Protein 7.5 g/dL (6.3-8.2)
--- NOTE | 2018-07-12 14:48 | XRAY ---
Indication: Left chest wall pain. Comparison: November 06, 2017. Portable apical lordotic chest again demonstrates minimal right suprahilar fibrosis/scarring with calcified granulomas. No focal infiltrate, consolidation, or large effusion. Heart and mediastinal structures within normal limits. Bony thorax intact again with mild osteopenia and degenerative changes. Impression: Stable nonacute chest with chronic features.
[2018-07-12] MEDS ORDERED: ENOXAPARIN SODIUM SQ ONE ×2 (14:56→15:05)
[2018-07-12] MEDS ORDERED: MILK OF MAGNESIA 30 ML PO PRN (14:59)
[2018-07-12] MEDS ORDERED: Nitrostat 0.4 MG Tablet SL PRN (14:59)
[2018-07-12] MEDS ORDERED: Senokot-S Tablet PO PRN (14:59)
[2018-07-12] MEDS ORDERED: Zofran 4 MG/2 ML VIAL IV PRN (14:59)
[2018-07-12] MEDS ORDERED: MAALOX ES 30 ML UNIT DOSE PO PRN (14:59)
[2018-07-12] MEDS ORDERED: TYLENOL 325 MG PO PRN (15:02)
[2018-07-12] MEDS ORDERED: MORPHINE SULFATE 4 MG INJ IV PRN (15:05)
[2018-07-12] MEDS: Neurontin 400 MG PO SCH ×2 (17:11→21:07)
[2018-07-12] MEDS: NORCO 5/325 MG PO PRN ×2 (18:54→22:55)
[2018-07-12] MEDS: NITRO-BID 2% UD PACKETS TOP SCH ×2 (21:19→21:20)
[2018-07-12] MEDS ORDERED: Pepcid 20 MG PO SCH (22:00)
[2018-07-12] MEDS ORDERED: Lopressor 25MG Tab PO SCH (22:00)
[2018-07-12] MEDS ORDERED: Ambien 10 MG PO SCH (22:00)
[2018-07-13 01:49] LABS: Risk Ratio 2.7
[2018-07-13] MEDS ORDERED: Sodium Chloride 0.9% 1000 ML 1,000 ML ONE (06:56)
[2018-07-13] MEDS: Sodium Chloride 0.9% 1000 ML 1,000 ML IV SCH (06:57)
[2018-07-13] MEDS ORDERED: TYLENOL 325 MG ONE (07:04)
[2018-07-13 07:26] VITALS: BP 146/66; PULSE 76; O2SAT 100
[2018-07-13] MEDS ORDERED: MORPHINE SULFATE 2 MG INJ IV PRN (07:36)
--- NOTE | 2018-07-13 08:24 | PCM.SSS ---
History of Present Illness - Chief Complaint Chief Complaint: CP R/O History of Present Illness: is a 68 year old female with a history of CAD and stents x 2 placed in 2017. Yesterday she developed pain in the substernal region, was sharp and stabbing, worse with cough or deep inspirtation. No diaphoresis or shortness of breath, her pain resolved after arrival and she has been pain-free since admission. She has no swelling or pain in the lower extremities, she feels great and prefers to be discharged today. She saw Dr Lenz last week and her checkup was good, no changes were made to her regimen. - Review of Systems Constitutional: No Fever, No Chills Cardiac: Chest Pain Abdominal/Gastrointestinal: No Abdominal Pain, No Nausea, No Vomiting, No Diarrhea Genitourinary Symptoms: No Dysuria Musculoskeletal: No Back Pain, No Neck Pain Skin: No Rash All Other Systems: Reviewed and Negative Medications & Allergies Home Medications: Home Medication List Gabapentin [Neurontin] 800 mg PO QID 07/28/14 [History Confirmed 07/12/18] Aspirin [Aspir-Low] 81 mg PO DAILY 03/28/16 [History Confirmed 07/12/18] Atorvastatin Calcium [Lipitor] 20 mg PO DAILY 03/28/16 [History Confirmed ] Clopidogrel Bisulfate 75 mg [PLAVIX 75 MG Tablet] 75 mg PO DAILY 03/28/16 [History Confirmed 07/12/18] Lisinopril 2.5 mg PO DAILY 03/28/16 [History Confirmed 07/12/18] Hydrocodone Bit/Acetaminophen [[place] 5-325 Tablet] 1 each PO QID 07/10/17 [ History Confirmed 07/12/18] Zolpidem Tartrate 10 mg [Ambien 10 MG] 10 mg PO QHS 07/12/18 [History Confirmed 07/12/18] Allergies/Adverse Reactions: Allergies Allergy/AdvReac Type Severity Reaction Status Date / Time iodine Allergy Verified 07/12/18 15:52 penicillin G Allergy Verified 07/12/18 15:52 codeine AdvReac Intermediate Vomiting Verified 07/12/18 15:52 - Past Medical History Past Medical History: Yes Neurological History: Other ENT History: No Pertinent History Cardiac History: Myocardial Infarction ([place]) Respiratory History: No Pertinent History Endocrine Medical History: No Pertinent History Musculoskelatal History: Osteoarthritis GI Medical History: GERD History: No Pertinent History Pyscho-Social History: No Pertinent History Reproductive Disorders: No Pertinent History Comment: 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, reflex sympothetic dystrophy, stent x 2 - Female History Are you now?: No - Past Surgical History Past Surgical History: Yes Neuro Surgical History: No Pertinent History Cardiac History: Cardiac Catheterization, Cardiac Stent Respiratory Surgery: No Pertinent History GI Surgical History: No Pertinent History Musculskeletal Surgical Hx: Orthopedic Surgery Female Surgical History: Section, Hysterectomy Other Surgical History: NECK - Social History Smoking Status: Never smoker Exposure to second hand smoke: Yes Alcohol: None Drug Use: none Significant Family History: heart disease, hypertension - Physical Exam Vital Signs: Vital Signs - 24 hr Temp Pulse Resp BP Pulse Ox 07/13/18 07:25 98.4 F 76 16 146/66 100 07/13/18 04:00 97.8 F 65 17 119/58 98 07/12/18 23:34 97.7 F 70 18 146/65 97 07/12/18 19:38 97.7 F 70 17 117/58 98 07/12/18 15:36 98.3 F 67 16 154/73 97 07/12/18 15:09 100 07/12/18 14:15 98.1 F 69 18 137/77 97 07/12/18 13:20 98.0 F 67 16 140/81 98 07/12/18 12:00 98.0 F 72 20 179/80 100 General Appearance: no apparent distress, alert Eye Exam: PERRL/EOMI, eyes nml inspection Respiratory Exam: normal breath sounds, lungs clear, No respiratory distress Cardiovascular Exam: regular rate/rhythm, normal heart sounds, normal peripheral pulses Gastrointestinal/Abdomen Exam: soft, normal bowel sounds, No tenderness, No mass Extremity Exam: normal inspection, normal range of motion, pelvis stable Skin Exam: normal color, warm, dry, No rash Results - Labs Lab/Micro Results: Lab Results-Last 24 Hours 07/12/18 07/12/18 07/12/18 Range/Units 12:53 12:53 12:53 WBC 6.3 (4.0-10.5) K/mm3 RBC 3.88 L (4.1-5.4) M/mm3 Hgb 12.1 (12.0-16.0) gm/dl Hct 34.9 L (35-47) % MCV 89.9 (78-100) fl MCH 31.1 (26-32) pg MCHC 34.7 (32-36) g/dl RDW 12.5 (11.5-14.0) % Plt Count 442 (150-450) K/mm3 MPV 9.7 H (6-9.5) fl Gran % 48.8 (36.0-66.0) % Eos # (Auto) 0.18 (0-0.5) Absolute Lymphs (auto) 2.27 (1.0-4.6) Absolute Monos (auto) 0.76 (0.0-1.3) Lymphocytes % 36.0 (24.0-44.0) % Monocytes % 12.0 (0.0-12.0) % Eosinophils % 2.9 (0.00-5.0) % Basophils % 0.3 (0.0-0.4) % Absolute Granulocytes 3.08 (1.4-6.9) Basophils # 0.02 (0-0.4) PT 9.9 L (9.95-12.35) SECONDS INR 0.85 (0.8-3.0) D-Dimer 593 H* (215-500) ng/mL Sodium 128 L (137-145) mmol/L Potassium 4.5 (3.5-5.1) mmol/L Chloride 90 L (98-107) mmol/L Carbon Dioxide 26 (22-30) mmol/L Anion Gap 17.1 H (5-15) MEQ/L BUN 9 (7-17) mg/dL Creatinine 0.56 (0.52-1.04) mg/dL Estimated GFR > 60.0 ML/MIN Glucose 91 (74-106) mg/dL Calcium 9.6 (8.4-10.2) mg/dL Total Bilirubin 0.40 (0.2-1.3) mg/dL AST 51 H (14-36) U/L ALT 42 H (0-35) U/L Alkaline Phosphatase 68 (38-126) U/L Troponin I (0.000-0.034) ng/mL NT-Pro-B Natriuret Pep 362 (0-900) pg/mL Serum Total Protein 7.5 (6.3-8.2) g/dL Albumin 4.4 (3.5-5.0) g/dL Triglycerides (30-150) mg/dL Cholesterol (50-200) mg/dL LDL Cholesterol (30-100) mg/dL HDL Cholesterol (40-60) mg/dL Heart Disease Risk Ratio 07/12/18 07/12/18 07/12/18 Range/Units 12:53 16:03 18:55 WBC (4.0-10.5) K/mm3 RBC (4.1-5.4) M/mm3 Hgb (12.0-16.0) gm/dl Hct (35-47) % MCV (78-100) fl MCH (26-32) pg MCHC (32-36) g/dl RDW (11.5-14.0) % Plt Count (150-450) K/mm3 MPV (6-9.5) fl Gran % (36.0-66.0) % Eos # (Auto) (0-0.5) Absolute Lymphs (auto) (1.0-4.6) Absolute Monos (auto) (0.0-1.3) Lymphocytes % (24.0-44.0) % Monocytes % (0.0-12.0) % Eosinophils % (0.00-5.0) % Basophils % (0.0-0.4) % Absolute Granulocytes (1.4-6.9) Basophils # (0-0.4) PT (9.95-12.35) SECONDS INR (0.8-3.0) D-Dimer (215-500) ng/mL Sodium (137-145) mmol/L Potassium (3.5-5.1) mmol/L Chloride (98-107) mmol/L Carbon Dioxide (22-30) mmol/L Anion Gap (5-15) MEQ/L BUN (7-17) mg/dL Creatinine (0.52-1.04) mg/dL Estimated GFR ML/MIN Glucose (74-106) mg/dL Calcium (8.4-10.2) mg/dL Total Bilirubin (0.2-1.3) mg/dL AST (14-36) U/L ALT (0-35) U/L Alkaline Phosphatase (38-126) U/L Troponin I < 0.012 < 0.012 < 0.012 (0.000-0.034) ng/mL NT-Pro-B Natriuret Pep (0-900) pg/mL Serum Total Protein (6.3-8.2) g/dL Albumin (3.5-5.0) g/dL Triglycerides (30-150) mg/dL Cholesterol (50-200) mg/dL LDL Cholesterol (30-100) mg/dL HDL Cholesterol (40-60) mg/dL Heart Disease Risk Ratio 07/12/18 07/13/18 07/13/18 Range/Units 21:58 01:09 01:41 WBC (4.0-10.5) K/mm3 RBC (4.1-5.4) M/mm3 Hgb (12.0-16.0) gm/dl Hct (35-47) % MCV (78-100) fl MCH (26-32) pg MCHC (32-36) g/dl RDW (11.5-14.0) % Plt Count (150-450) K/mm3 MPV (6-9.5) fl Gran % (36.0-66.0) % Eos # (Auto) (0-0.5) Absolute Lymphs (auto) (1.0-4.6) Absolute Monos (auto) (0.0-1.3) Lymphocytes % (24.0-44.0) % Monocytes % (0.0-12.0) % Eosinophils % (0.00-5.0) % Basophils % (0.0-0.4) % Absolute Granulocytes (1.4-6.9) Basophils # (0-0.4) PT (9.95-12.35) SECONDS INR (0.8-3.0) D-Dimer (215-500) ng/mL Sodium (137-145) mmol/L Potassium (3.5-5.1) mmol/L Chloride (98-107) mmol/L Carbon Dioxide (22-30) mmol/L Anion Gap (5-15) MEQ/L BUN (7-17) mg/dL Creatinine (0.52-1.04) mg/dL Estimated GFR ML/MIN Glucose (74-106) mg/dL Calcium (8.4-10.2) mg/dL Total Bilirubin (0.2-1.3) mg/dL AST (14-36) U/L ALT (0-35) U/L Alkaline Phosphatase (38-126) U/L Troponin I < 0.012 < 0.012 (0.000-0.034) ng/mL NT-Pro-B Natriuret Pep (0-900) pg/mL Serum Total Protein (6.3-8.2) g/dL Albumin (3.5-5.0) g/dL Triglycerides 119 (30-150) mg/dL Cholesterol 149 (50-200) mg/dL LDL Cholesterol 72 (30-100) mg/dL HDL Cholesterol 55 (40-60) mg/dL Heart Disease Risk Ratio 2.7 - Radiology Impressions Radiology Exams & Impressions: Radiology Procedures Category Date Time Status CHEST 1 VIEW (PORTABLE) Stat Exams 07/12/18 12:43 Completed PULMONARY PERF VENTILATION [NUCMED] Stat Exams 07/13/18 15:31 Stop Req - Other Procedures and Tests Respiratory Therapy 07/12/18 16:09 EKG ONCE 07/15/18 05:00 EKG ONCE Assessment/Plan (1) Chest pain Current Visit: No Status: Acute Qualifiers: Chest pain type: unspecified Qualified Code(s): R07.9 - Chest pain, unspecified Assessment & Plan: appears chest wall related, has resolved and has no swelling or dyspnea. no need to further investigate d-dimer in my opinion. I discussed the test and possibility of PE but lack of symptoms and she prefers to not have any further testing as her pain does indeed sound like it was chest wall pain. Code(s): R07.9 - CHEST PAIN, UNSPECIFIED Hospital Summary - Vitals & Intake/Output Vital Signs: Vital Signs Temperature 98.4 F 07/13/18 07:25 Pulse Rate 76 07/13/18 07:25 Respiratory Rate 16 07/13/18 07:25 Blood Pressure 146/66 07/13/18 07:25 O2 Sat by Pulse Oximetry 100 07/13/18 07:25 Intake & Output: Intake & Output 07/10/18 07/11/18 07/12/18 07/13/18 11:59 11:59 11:59 11:59 Intake Total 1983 Output Total 2750 Balance -767 Weight 38 kg - Lab Result Diagrams: 07/12/18 12:53 07/12/18 12:53 Lab Results-Last 24 Hrs: Lab Results-Last 24 Hours 07/12/18 07/12/18 07/12/18 Range/Units 12:53 12:53 12:53 WBC 6.3 (4.0-10.5) K/mm3 RBC 3.88 L (4.1-5.4) M/mm3 Hgb 12.1 (12.0-16.0) gm/dl Hct 34.9 L (35-47) % MCV 89.9 (78-100) fl MCH 31.1 (26-32) pg MCHC 34.7 (32-36) g/dl RDW 12.5 (11.5-14.0) % Plt Count 442 (150-450) K/mm3 MPV 9.7 H (6-9.5) fl Gran % 48.8 (36.0-66.0) % Eos # (Auto) 0.18 (0-0.5) Absolute Lymphs (auto) 2.27 (1.0-4.6) Absolute Monos (auto) 0.76 (0.0-1.3) Lymphocytes % 36.0 (24.0-44.0) % Monocytes % 12.0 (0.0-12.0) % Eosinophils % 2.9 (0.00-5.0) % Basophils % 0.3 (0.0-0.4) % Absolute Granulocytes 3.08 (1.4-6.9) Basophils # 0.02 (0-0.4) PT 9.9 L (9.95-12.35) SECONDS INR 0.85 (0.8-3.0) D-Dimer 593 H* (215-500) ng/mL Sodium 128 L (137-145) mmol/L Potassium 4.5 (3.5-5.1) mmol/L Chloride 90 L (98-107) mmol/L Carbon Dioxide 26 (22-30) mmol/L Anion Gap 17.1 H (5-15) MEQ/L BUN 9 (7-17) mg/dL Creatinine 0.56 (0.52-1.04) mg/dL Estimated GFR > 60.0 ML/MIN Glucose 91 (74-106) mg/dL Calcium 9.6 (8.4-10.2) mg/dL Total Bilirubin 0.40 (0.2-1.3) mg/dL AST 51 H (14-36) U/L ALT 42 H (0-35) U/L Alkaline Phosphatase 68 (38-126) U/L Troponin I (0.000-0.034) ng/mL NT-Pro-B Natriuret Pep 362 (0-900) pg/mL Serum Total Protein 7.5 (6.3-8.2) g/dL Albumin 4.4 (3.5-5.0) g/dL Triglycerides (30-150) mg/dL Cholesterol (50-200) mg/dL LDL Cholesterol (30-100) mg/dL HDL Cholesterol (40-60) mg/dL Heart Disease Risk Ratio 07/12/18 07/12/18 07/12/18 Range/Units 12:53 16:03 18:55 WBC (4.0-10.5) K/mm3 RBC (4.1-5.4) M/mm3 Hgb (12.0-16.0) gm/dl Hct (35-47) % MCV (78-100) fl MCH (26-32) pg MCHC (32-36) g/dl RDW (11.5-14.0) % Plt Count (150-450) K/mm3 MPV (6-9.5) fl Gran % (36.0-66.0) % Eos # (Auto) (0-0.5) Absolute Lymphs (auto) (1.0-4.6) Absolute Monos (auto) (0.0-1.3) Lymphocytes % (24.0-44.0) % Monocytes % (0.0-12.0) % Eosinophils % (0.00-5.0) % Basophils % (0.0-0.4) % Absolute Granulocytes (1.4-6.9) Basophils # (0-0.4) PT (9.95-12.35) SECONDS INR (0.8-3.0) D-Dimer (215-500) ng/mL Sodium (137-145) mmol/L Potassium (3.5-5.1) mmol/L Chloride (98-107) mmol/L Carbon Dioxide (22-30) mmol/L Anion Gap (5-15) MEQ/L BUN (7-17) mg/dL Creatinine (0.52-1.04) mg/dL Estimated GFR ML/MIN Glucose (74-106) mg/dL Calcium (8.4-10.2) mg/dL Total Bilirubin (0.2-1.3) mg/dL AST (14-36) U/L ALT (0-35) U/L Alkaline Phosphatase (38-126) U/L Troponin I < 0.012 < 0.012 < 0.012 (0.000-0.034) ng/mL NT-Pro-B Natriuret Pep (0-900) pg/mL Serum Total Protein (6.3-8.2) g/dL Albumin (3.5-5.0) g/dL Triglycerides (30-150) mg/dL Cholesterol (50-200) mg/dL LDL Cholesterol (30-100) mg/dL HDL Cholesterol (40-60) mg/dL Heart Disease Risk Ratio 07/12/18 07/13/18 07/13/18 Range/Units 21:58 01:09 01:41 WBC (4.0-10.5) K/mm3 RBC (4.1-5.4) M/mm3 Hgb (12.0-16.0) gm/dl Hct (35-47) % MCV (78-100) fl MCH (26-32) pg MCHC (32-36) g/dl RDW (11.5-14.0) % Plt Count (150-450) K/mm3 MPV (6-9.5) fl Gran % (36.0-66.0) % Eos # (Auto) (0-0.5) Absolute Lymphs (auto) (1.0-4.6) Absolute Monos (auto) (0.0-1.3) Lymphocytes % (24.0-44.0) % Monocytes % (0.0-12.0) % Eosinophils % (0.00-5.0) % Basophils % (0.0-0.4) % Absolute Granulocytes (1.4-6.9) Basophils # (0-0.4) PT (9.95-12.35) SECONDS INR (0.8-3.0) D-Dimer (215-500) ng/mL Sodium (137-145) mmol/L Potassium (3.5-5.1) mmol/L Chloride (98-107) mmol/L Carbon Dioxide (22-30) mmol/L Anion Gap (5-15) MEQ/L BUN (7-17) mg/dL Creatinine (0.52-1.04) mg/dL Estimated GFR ML/MIN Glucose (74-106) mg/dL Calcium (8.4-10.2) mg/dL Total Bilirubin (0.2-1.3) mg/dL AST (14-36) U/L ALT (0-35) U/L Alkaline Phosphatase (38-126) U/L Troponin I < 0.012 < 0.012 (0.000-0.034) ng/mL NT-Pro-B Natriuret Pep (0-900) pg/mL Serum Total Protein (6.3-8.2) g/dL Albumin (3.5-5.0) g/dL Triglycerides 119 (30-150) mg/dL Cholesterol 149 (50-200) mg/dL LDL Cholesterol 72 (30-100) mg/dL HDL Cholesterol 55 (40-60) mg/dL Heart Disease Risk Ratio 2.7 - Radiology Exams Ordered Rad Exams-Entire Visit: Radiology Procedures Category Date Time Status CHEST 1 VIEW (PORTABLE) Stat Exams 07/12/18 12:43 Completed PULMONARY PERF VENTILATION [NUCMED] Stat Exams 07/13/18 15:31 Stop Req - Procedures and Test Procedures and Tests throughout Hospitalization: Therapy Orders & Screens 07/12/18 16:09 EKG ONCE Comment: 07/12/18 21:00 EKG ONCE Comment: 07/13/18 05:00 EKG ONCE Comment: 07/14/18 05:00 EKG Q8HX2,QAMX3,PRN Comment: 07/15/18 05:00 EKG ONCE Comment: Diagnosis: CP R/O - Discharge Disposition: Home, Self-Care Condition: Stable Prescriptions: Continue Gabapentin [Neurontin] 800 mg PO QID Clopidogrel Bisulfate 75 mg [PLAVIX 75 MG Tablet] 75 mg PO DAILY Aspirin [Aspir-Low] 81 mg PO DAILY Lisinopril 2.5 mg PO DAILY Atorvastatin Calcium [Lipitor] 20 mg PO DAILY Hydrocodone Bit/Acetaminophen [[place] 5-325 Tablet] 1 each PO QID Zolpidem Tartrate 10 mg [Ambien 10 MG] 10 mg PO QHS Follow up with: CHILO FARFAN MD [Primary Care Provider] - 1 Week
[2018-07-13] MEDS ORDERED: ECOTRIN 81 MG PO SCH (10:00)
[2018-07-13] MEDS ORDERED: ZOCOR 20MG PO SCH (10:00)
[2018-07-13] MEDS ORDERED: Zestril 5 MG PO SCH (10:00)
[2018-07-13] MEDS ORDERED: PLAVIX 75 MG Tablet PO SCH (10:00)
[2018-07-13] MEDS ORDERED: Ecotrin 325 MG PO SCH (10:00)
[2018-07-13] MEDS ORDERED: ENOXAPARIN SODIUM SQ SCH (10:00)
[2018-07-13] MEDS ORDERED: Zestril 10 MG PO SCH (10:00)
== END 2018-07-13 10:03 | disposition home or self-care (01) ==
LOC: ED 11:59 → MED SURG 15:17
PROVIDERS: ADMIT Internal Medicine; ATTEND Family Medicine
DX: R07.9 Chest pain, unspecified (principal); Z79.01 Long term (current) use of anticoagulants; Z79.899 Other long term (current) drug therapy; Z86.79 Personal history of other diseases of the circulatory system; I25.2 Old myocardial infarction
CPT/HCPCS: 36000; 36415; 71045; 80053; 80061; 83721; 83880; 84484; 85025; 85379; 85610; 93005; 93041; 93268; 96360; 96361; 96372; 99285; G0378; 96374; J1650; J2270; A9270-GY

== ENCOUNTER 2019-11-17 17:49 | Emergency (ER) | payer MEDICARE ==
--- NOTE | 2019-11-17 17:52 | ERPHSYRPT ---
- History of Present Illness Time Seen by Provider: 11/17/19 17:52 Source: patient Exam Limitations: no limitations Physician History: This is a 69-year-old white female who is on Plavix and aspirin and has a history of hypertension and presents with hematuria and dysuria. Patient's first symptom was dysuria at approximately noon earlier this afternoon. Within a couple hours later she was having pink-tinged urine followed by significant gross hematuria. Patient has not felt dizzy. She has no flank pain. She states that just a burning type pain in the suprapubic area when she urinates. She is had no nausea vomiting or diarrhea. She denies fever. She has no cough. She has no chest pain or shortness of breath. Timing/Duration: today Activites at Onset: none Quality: burning Onset Location: suprapubic Severity of Pain-Max: mild Severity of Pain-Current: mild Sexual intercourse history: non-contributory Modifying Factors: Improves With: nothing Associated Symptoms: dysuria, No abdominal pain, No fever, No chills Allergies/Adverse Reactions: iodine Allergy (Verified 11/17/19 18:07) penicillin G Allergy (Verified 11/17/19 18:07) codeine Adverse Reaction (Intermediate, Verified 11/17/19 18:07) Vomiting Home Medications: Gabapentin [Neurontin] 800 mg PO QID 07/28/14 [History] Aspirin [Aspir-Low] 81 mg PO DAILY 03/28/16 [History] Atorvastatin Calcium [Lipitor] 20 mg PO DAILY 03/28/16 [History] Clopidogrel Bisulfate 75 mg [PLAVIX 75 MG Tablet] 75 mg PO DAILY 03/28/16 [History] lisinopriL [Lisinopril] 2.5 mg PO DAILY 03/28/16 [History] Hydrocodone Bit/Acetaminophen [[place] 5-325 Tablet] 1 each PO QID 07/10/17 [History] Zolpidem Tartrate 10 mg [Ambien 10 MG] 10 mg PO QHS 07/12/18 [History] Hx Tetanus, Diphtheria Vaccination/Date Given: Yes Hx Influenza Vaccination/Date Given: Yes Hx Pneumococcal Vaccination/Date Given: Yes Travel Risk - International Travel Have you traveled outside of the country in past 3 weeks: No - Coronavirus Screening Are you exhibiting any of the following symptoms?: No Close contact with a COVID-19 positive Pt in past 14-21 Days: No - Review of Systems Constitutional: No Symptoms Eyes: No Symptoms Ears, Nose, & Throat: No Symptoms Respiratory: No Symptoms Cardiac: No Symptoms Abdominal/Gastrointestinal: No Symptoms Genitourinary Symptoms: Dysuria, Hematuria Musculoskeletal: No Symptoms Skin: No Symptoms Neurological: No Symptoms Psychological: No Symptoms Endocrine: No Symptoms Hematologic/Lymphatic: No Symptoms Immunological/Allergic: No Symptoms All Other Systems: Reviewed and Negative - Past Medical History Pertinent Past Medical History: Yes Neurological History: Other ENT History: No Pertinent History Cardiac History: Myocardial Infarction ([place]) Respiratory History: No Pertinent History Endocrine Medical History: No Pertinent History Musculoskeletal History: Osteoarthritis GI Medical History: GERD History: No Pertinent History Psycho-Social History: No Pertinent History Female Reproductive Disorders: No Pertinent History Other Medical History: 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, reflex sympothetic dystrophy, stent x 2 - Past Surgical History Past Surgical History: Yes Neuro Surgical History: No Pertinent History Cardiac: Cardiac Catheterization, Cardiac Stent Respiratory: No Pertinent History Gastrointestinal: No Pertinent History Musculoskeletal: Orthopedic Surgery Female Surgical History: Section, Hysterectomy Other Surgical History: NECK - Social History Smoking Status: Never smoker Exposure to second hand smoke: Yes Alcohol Use: None Drug Use: none Patient Lives Alone: Yes Significant Family History: heart disease, hypertension - Nursing Vital Signs Nursing Vital Signs: Initial Vital Signs Pulse Rate 77 11/17/19 17:50 Respiratory Rate 18 11/17/19 17:50 Blood Pressure 168/100 11/17/19 17:50 O2 Sat by Pulse Oximetry 98 11/17/19 17:50 Pain Scale Pain Intensity 10 - Physical Exam General Appearance: no apparent distress, alert, anxiety Eye Exam: PERRL/EOMI, eyes nml inspection Ears, Nose, Throat Exam: normal ENT inspection, moist mucous membranes Neck Exam: normal inspection, non-tender, supple, full range of motion Respiratory Exam: normal breath sounds, lungs clear, airway intact, No chest tenderness, No respiratory distress Gastrointestinal/Abdomen Exam: soft, normal bowel sounds, tenderness (Mild suprapubic tenderness to palpation), No guarding, No rebound Pelvic Exam: not done Rectal Exam: not done Extremity Exam: normal inspection, normal range of motion, pelvis stable Neurologic Exam: alert, oriented x 3, cooperative, 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, normal mood/affect, nml cerebellar function, nml station & gait, sensation nml Skin Exam: normal color, warm, dry Lymphatic Exam: No adenopathy SpO2 Interpretation: normal O2 Delivery: Room Air - Course Nursing assessment & vital signs reviewed: Yes Ordered Tests: Active Orders 24 hr Category Date Time Status IV Insertion STAT Care 11/17/19 18:37 Active BMP Stat Lab 11/17/19 18:50 Completed CBC W DIFF Stat Lab 11/17/19 18:50 Completed CULTURE,URINE Stat Lab 11/17/19 18:14 Received UA W/RFX UR CULTURE Stat Lab 11/17/19 18:14 Completed Medication Summary Discontinued Medications Generic Name Dose Route Start Last Admin Trade Name Freq PRN Reason Stop Dose Admin Sodium Chloride 1,000 mls @ 999 mls/hr 11/17/19 18:37 11/17/19 18:58 Sodium Chloride 0.9% 1000 Ml IV 11/17/19 19:37 999 mls/hr .Q1H1M STA Administration Ceftriaxone Sodium/Dextrose 1 g in 50 mls @ 100 mls/hr 11/17/19 18:40 11/17/19 19:00 Rocephin 1 Gm-D5w 50 Ml Bag IV 11/17/19 19:09 100 mls/hr STAT STA 100 mls/hr Administration Sodium Chloride Confirm 11/17/19 18:47 Sodium Chloride 0.9% 1000 Ml Administered 11/17/19 18:48 Dose 1,000 mls @ ud .ROUTE .STK-MED ONE Ceftriaxone Sodium/Dextrose Confirm 11/17/19 18:47 Rocephin 1 Gm-D5w 50 Ml Bag Administered 11/17/19 18:48 Dose 1 g in 50 mls @ ud IV .STK-MED ONE Levofloxacin 500 mg 11/17/19 18:40 11/17/19 19:30 Levofloxacin 500 Mg Tablet PO 11/17/19 18:41 500 mg STAT ONE Administration Levofloxacin Confirm 11/17/19 19:28 Levofloxacin 500 Mg Tablet Administered 11/17/19 19:29 Dose 500 mg .ROUTE .STK-MED ONE Ondansetron HCl 4 mg 11/17/19 19:37 11/17/19 19:40 Zofran 4 Mg/2 Ml Vial IV 09/23/20 19:38 4 mg STAT ONE Administration Ondansetron HCl Confirm 11/17/19 19:37 Zofran 4 Mg/2 Ml Vial Administered 11/17/19 19:38 Dose 4 mg .ROUTE .[employer] ONE Phenazopyridine HCl 200 mg 11/17/19 18:41 11/17/19 19:01 Pyridium 200 Mg PO 11/17/19 18:42 200 mg STAT ONE Administration Phenazopyridine HCl Confirm 11/17/19 18:48 Pyridium 200 Mg Administered 11/17/19 18:49 Dose 200 mg .ROUTE .[facility] Lab/Rad Data: Laboratory Result Diagrams 11/17/19 18:50 11/17/19 18:50 Laboratory Results 11/17/19 11/17/19 11/17/19 Range/Units 18:50 18:50 18:14 WBC 12.0 H (4.0-10.5) K/mm3 RBC 3.91 L (4.1-5.4) M/mm3 Hgb 11.9 L (12.0-16.0) gm/dl Hct 35.9 (35-47) % MCV 91.8 (78-100) fl MCH 30.4 (26-32) pg MCHC 33.1 (32-36) g/dl RDW 14.7 H (11.5-14.0) % Plt Count 447 (150-450) K/mm3 MPV 9.8 (7.5-11.0) fl Gran % 69.6 H (36.0-66.0) % Eos # (Auto) 0.24 (0-0.5) Absolute Lymphs (auto) 2.24 (1.0-4.6) Absolute Monos (auto) 1.12 (0.0-1.3) Lymphocytes % 18.7 L (24.0-44.0) % Monocytes % 9.3 (0.0-12.0) % Eosinophils % 2.0 (0.00-5.0) % Basophils % 0.4 (0.0-0.4) % Absolute Granulocytes 8.33 H (1.4-6.9) Basophils # 0.05 (0-0.4) Sodium 132 L (137-145) mmol/L Potassium 4.6 (3.5-5.1) mmol/L Chloride 99 (98-107) mmol/L Carbon Dioxide 27 (22-30) mmol/L Anion Gap 11.1 (5-15) MEQ/L BUN 17 (7-17) mg/dL Creatinine 0.60 (0.52-1.04) mg/dL Estimated GFR > 60.0 ML/MIN Glucose 95 (74-106) mg/dL Calcium 10.1 (8.4-10.2) mg/dL Urine Color RED (YELLOW) Urine Appearance SLIGHTLY CLOUDY (CLEAR) Urine pH 7.0 (5-6) Ur Specific [place] 1.008 (1.005-1.025) Urine Protein 100 (Negative) Urine Ketones NEGATIVE (NEGATIVE) Urine Blood LARGE (0-5) [place] Urine Nitrite NEGATIVE (NEGATIVE) Urine Bilirubin NEGATIVE (NEGATIVE) Urine Urobilinogen NEGATIVE (0-1) mg/dL Ur Leukocyte Esterase LARGE (NEGATIVE) Urine WBC (Auto) 11-15 (0-5) /HPF Urine RBC (Auto) >101 (0-2) /HPF U Epithel Cells (Auto) NONE (FEW) /HPF Urine Bacteria (Auto) NONE SEEN (NEGATIVE) /HPF Unidentified Crystals >100 (NEGATIVE) /HPF Urine Mucus (Auto) SLIGHT (NEGATIVE) /HPF Urine Culture Reflexed YES (NO) Urine Glucose NEGATIVE (NEGATIVE) mg/dL - Progress Progress: re-examined, unchanged Air Movement: good Blood Culture(s) Obtained: No Antibiotics given: Yes Counseled pt/family regarding: lab results, diagnosis, need for follow-up, rad results - Departure Departure Disposition: Home Clinical Impression: Urinary tract infection, Hematuria Condition: Stable Critical Care Time: No Referrals: CHILO FARFAN MD [Primary Care Provider] - Additional Instructions: Drink plenty of fluids. Take medication as prescribed except stop your Plavix and aspirin for 36 hours. Follow-up with your primary care physician. Prescriptions: Ondansetron ODT 4 MG [Zofran Odt 4 mg] 4 mg PO Q6H PRN PRN #10 tab.rapdis PRN Reason: Vomiting Ciprofloxacin [Cipro 500 MG] 500 mg PO BID #14 tablet Phenazopyridine HCl 200 mg [Pyridium 200 mg] 200 mg PO TID #6 tablet
[2019-11-17 18:23] LABS: Appearance SLIGHTLY CLOUDY (CLEAR); Bilirubin NEGATIVE (NEGATIVE); Blood LARGE Ery/ul (0-5); Crystals Unidentified >100 /HPF (NEGATIVE); Glucose NEGATIVE (NEGATIVE); Ketones NEGATIVE (NEGATIVE); Leukocyte Esterase LARGE (NEGATIVE); Mucus SLIGHT /HPF (NEGATIVE); Nitrite NEGATIVE (NEGATIVE); Protein,Urine Dip 100 (Negative); RBC >101 /HPF (0-2); Specific Gravity 1.008 (1.005-1.025); Urobilinogen NEGATIVE mg/dL (0-1)
[2019-11-17 18:24] LABS: Bacteria NONE SEEN /HPF (NEGATIVE)
[2019-11-17] MEDS ORDERED: Sodium Chloride 0.9% 1000 ML 1,000 ML IV STA (18:37)
[2019-11-17] MEDS ORDERED: ROCEPHIN 1 Gm-D5w 50 ml Bag** 1 G/50 ML IVPB IV STA (18:40)
[2019-11-17] MEDS ORDERED: Levofloxacin 500 MG Tablet PO ONE (18:40)
[2019-11-17] MEDS ORDERED: PYRIDIUM 200 MG PO ONE (18:41)
[2019-11-17] MEDS ORDERED: ROCEPHIN 1 Gm-D5w 50 ml Bag** 1 G/50 ML IVPB IV ONE (18:47)
[2019-11-17] MEDS ORDERED: Sodium Chloride 0.9% 1000 ML 1,000 ML ONE (18:47)
[2019-11-17] MEDS ORDERED: PYRIDIUM 200 MG ONE (18:48)
[2019-11-17 19:14] LABS: Absolute Neutrophil Ct (ANC) 8.33 (1.4-6.9); BASOPHIL % 0.4 % (0.0-0.4); Basophil (Absolute #) 0.05 (0-0.4); Eosinophil (Absolute #) 0.24 (0-0.5); Hematocrit 35.9 % (35-47); Hemoglobin 11.9 gm/dl (12.0-16.0); Lymphocyte (Absolute #) 2.24 (1.0-4.6); Lymphocytes % 18.7 % (24.0-44.0); Mean Cell Volume 91.8 fl (78-100); Mean Corpuscular Hemoglobin 30.4 pg (26-32); Mean Corpuscular Hgb Concent. 33.1 g/dl (32-36); Mean Platelet Volume 9.8 fl (7.5-11.0); Monocyte (Absolute #) 1.12 (0.0-1.3); Monocytes % 9.3 % (0.0-12.0); Neutrophil % 69.6 % (36.0-66.0); Platelet Count 447 K/mm3 (150-450); Red Blood Count 3.91 M/mm3 (4.1-5.4); Red Cell Distribution Width 14.7 % (11.5-14.0)
[2019-11-17] MEDS ORDERED: Levofloxacin 500 MG Tablet ONE (19:28)
[2019-11-17 19:29] LABS: ANION GAP 11.1 MEQ/L (5-15); BLOOD UREA NITROGEN 17 mg/dL (7-17); CHLORIDE 99 mmol/L (98-107); Calcium 10.1 mg/dL (8.4-10.2); Carbon Dioxide 27 mmol/L (22-30); EST GLOMERULAR FILTRATION RATE > 60.0 ML/MIN; Glucose 95 mg/dL (74-106); Potassium 4.6 mmol/L (3.5-5.1); SODIUM 132 mmol/L (137-145)
[2019-11-17] MEDS ORDERED: Zofran 4 MG/2 ML VIAL IV ONE (19:37)
[2019-11-17] MEDS ORDERED: Zofran 4 MG/2 ML VIAL ONE (19:37)
[2019-11-17 20:02] VITALS: BP 151/78
[2019-11-17 20:20] VITALS: PULSE 77; O2SAT 99
== END 2019-11-17 20:20 | disposition home or self-care (01) ==
LOC: ED 17:49
DX: N39.0 Urinary tract infection, site not specified (principal); R31.9 Hematuria, unspecified; I10 Essential (primary) hypertension; Z79.899 Other long term (current) drug therapy
CPT/HCPCS: 36000; 36415; 80048; 81001; 85025; 87077; 87086; 87186; 96360; 96365; 96374; 96375; 99284; J0696; J2405; A9270-GY

== ENCOUNTER 2020-04-15 09:48 | Observation (INO) | payer MEDICARE ==
[2020-04-15] MEDS ORDERED: Sodium Chloride 0.9% 1000 ML 1,000 ML IV STA (10:00)
[2020-04-15] MEDS ORDERED: Catapres 0.1 MG PO ONE (10:05)
[2020-04-15] MEDS ORDERED: NORVASC 5 MG PO ONE (10:06)
[2020-04-15] MEDS ORDERED: Sodium Chloride 0.9% 1000 ML 1,000 ML ONE (10:09)
[2020-04-15] MEDS ORDERED: NORVASC 5 MG ONE (10:09)
[2020-04-15] MEDS ORDERED: Catapres 0.1 MG ONE (10:09)
[2020-04-15 10:33] LABS: Appearance CLEAR (CLEAR); Bilirubin NEGATIVE (NEGATIVE); Blood NEGATIVE Ery/ul (0-5); Epithelial Cells RARE /HPF (FEW); Glucose NEGATIVE (NEGATIVE); Ketones NEGATIVE (NEGATIVE); Leukocyte Esterase NEGATIVE (NEGATIVE); Mucus SLIGHT /HPF (NEGATIVE); Nitrite NEGATIVE (NEGATIVE); Protein,Urine Dip 30 (Negative); RBC 0-2 /HPF (0-2); Specific Gravity 1.014 (1.005-1.025); Urobilinogen NEGATIVE mg/dL (0-1)
[2020-04-15 10:36] LABS: Absolute Neutrophil Ct (ANC) 2.59 (1.4-6.9); BASOPHIL % 0.8 % (0.0-0.4); Basophil (Absolute #) 0.04 (0-0.4); Eosinophil % 1.6 % (0.00-5.0); Eosinophil (Absolute #) 0.08 (0-0.5); Hematocrit 37.2 % (35-47); Hemoglobin 12.3 gm/dl (12.0-16.0); Lymphocyte (Absolute #) 1.56 (1.0-4.6); Lymphocytes % 32.1 % (24.0-44.0); Mean Cell Volume 90.1 fl (78-100); Mean Corpuscular Hemoglobin 29.8 pg (26-32); Mean Corpuscular Hgb Concent. 33.1 g/dl (32-36); Mean Platelet Volume 9.2 fl (7.5-11.0); Monocyte (Absolute #) 0.59 (0.0-1.3); Monocytes % 12.1 % (0.0-12.0); Neutrophil % 53.4 % (36.0-66.0); Platelet Count 476 K/mm3 (150-450); Red Blood Count 4.13 M/mm3 (4.1-5.4); Red Cell Distribution Width 12.5 % (11.5-14.0); White Blood Count 4.9 K/mm3 (4.0-10.5)
[2020-04-15 10:42] LABS: INR 0.96 (0.8-3.0); PROTIME 10.9 SECONDS (9.95-12.35)
[2020-04-15] MEDS ORDERED: Ativan 2 MG/1 ML VIAL IV ONE (10:57)
[2020-04-15] MEDS ORDERED: Ativan 2 MG/1 ML VIAL ONE (11:00)
[2020-04-15 11:17] LABS: Erythrocyte Sedimentation Rate 5 mm/hr (0-20)
[2020-04-15 11:18] LABS: ALBUMIN 4.3 g/dL (3.5-5.0); ALKALINE PHOSPHATASE 62 U/L (38-126); AMYLASE 89 U/L (30-110); ANION GAP 13.5 MEQ/L (5-15); BLOOD UREA NITROGEN 8 mg/dL (7-17); CHLORIDE 88 mmol/L (98-107); CK-Creatinine Phosphokinase 54 U/L (30-135); Calcium 9.6 mg/dL (8.4-10.2); Carbon Dioxide 24 mmol/L (22-30); Creatinine 1 0.55 mg/dL (0.52-1.04); EST GLOMERULAR FILTRATION RATE > 60.0 ML/MIN; Glucose 98 mg/dL (74-106); LIPASE 98 U/L (23-300); MAGNESIUM 1.6 mg/dL (1.6-2.3); NT PRO BNP 300 pg/mL (0-900); Potassium 4.3 mmol/L (3.5-5.1); SGOT/AST 35 U/L (14-36); SGPT/ALT 26 U/L (0-35); SODIUM 122 mmol/L (137-145); TSH, 3RD Generation 0.652 mIU/L (0.47-4.68); Total Protein 7.1 g/dL (6.3-8.2)
--- NOTE | 2020-04-15 11:44 | ERPHSYRPT ---
- History of Present Illness Time Seen by Provider: 04/15/20 10:00 Source: patient Exam Limitations: no limitations Patient Subjective Stated Complaint: Pt states "I am really shaky, I feel like the blood is draining out of me. I just feel bad." Triage Nursing Assessment: Pt presented alert and oriented X 3, skin pwd pt ambulates with an upright steady gait, able to speak in clear full sentences pt in no apparent respiratory ditress. Physician History: 69-year-old white female presents with a complaint of generalized weakness some chest discomfort and shaking. She says that "she just does not feel right." History of hypertension and status post [place] with cardiac stents. Roberto 30 minutes prior to arrival while she was sitting watching TV. Timing/Duration: today Severity: moderate Modifying Factors: Improves With: nothing Associated Symptoms: chest pain Allergies/Adverse Reactions: iodine Allergy (Verified 11/17/19 18:07) penicillin G Allergy (Verified 11/17/19 18:07) codeine Adverse Reaction (Intermediate, Verified 11/17/19 18:07) Vomiting Home Medications: Gabapentin [Neurontin] 800 mg PO QID 07/28/14 [History] Aspirin [Aspir-Low] 81 mg PO DAILY 03/28/16 [History] Atorvastatin Calcium [Lipitor] 20 mg PO DAILY 03/28/16 [History] Clopidogrel Bisulfate 75 mg [PLAVIX 75 MG Tablet] 75 mg PO DAILY 03/28/16 [History] lisinopriL [Lisinopril] 2.5 mg PO DAILY 03/28/16 [History] Hydrocodone Bit/Acetaminophen [[place] 5-325 Tablet] 1 each PO QID 07/10/17 [History] Zolpidem Tartrate 10 mg [Ambien 10 MG] 10 mg PO QHS 07/12/18 [History] Metoprolol Tartrate 25 mg [Lopressor 25MG Tab] 25 mg PO HS 04/15/20 [History] Hx Tetanus, Diphtheria Vaccination/Date Given: Yes Hx Influenza Vaccination/Date Given: Yes Hx Pneumococcal Vaccination/Date Given: Yes Immunizations Up to Date: Yes Travel Risk - International Travel Have you traveled outside of the country in past 3 weeks: No - Coronavirus Screening Are you exhibiting any of the following symptoms?: No Close contact with a COVID-19 positive Pt in past 14-21 Days: No - Review of Systems Constitutional: No Fever, No Chills Eyes: No Symptoms Ears, Nose, & Throat: No Symptoms Respiratory: No Cough, No Dyspnea Cardiac: Chest Pain, No Edema, No Syncope Abdominal/Gastrointestinal: Nausea, No Abdominal Pain, No Vomiting, No Diarrhea Genitourinary Symptoms: No Dysuria Musculoskeletal: No Back Pain, No Neck Pain Skin: No Rash Neurological: Dizziness, Tremors, No Focal Weakness, No Sensory Changes Psychological: Anxiety Endocrine: No Symptoms Hematologic/Lymphatic: No Symptoms Immunological/Allergic: No Symptoms All Other Systems: Reviewed and Negative - Past Medical History Pertinent Past Medical History: Yes Neurological History: Other ENT History: No Pertinent History Cardiac History: Myocardial Infarction ([place]) Respiratory History: No Pertinent History Endocrine Medical History: No Pertinent History Musculoskeletal History: Osteoarthritis GI Medical History: GERD History: No Pertinent History Psycho-Social History: No Pertinent History Female Reproductive Disorders: No Pertinent History Other Medical History: 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, reflex sympothetic dystrophy, stent x 2 - Past Surgical History Past Surgical History: Yes Neuro Surgical History: No Pertinent History Cardiac: Cardiac Catheterization, Cardiac Stent Respiratory: No Pertinent History Gastrointestinal: No Pertinent History Musculoskeletal: Orthopedic Surgery Female Surgical History: Section, Hysterectomy Other Surgical History: NECK - Social History Smoking Status: Never smoker Exposure to second hand smoke: Yes Alcohol Use: None Drug Use: none Patient Lives Alone: Yes Significant Family History: heart disease, hypertension - Nursing Vital Signs Nursing Vital Signs: Initial Vital Signs Temperature 97.3 F 04/15/20 09:55 Pulse Rate 72 04/15/20 09:55 Respiratory Rate 18 04/15/20 09:55 Blood Pressure 196/108 04/15/20 09:55 O2 Sat by Pulse Oximetry 100 04/15/20 09:55 Pain Scale Pain Intensity 0 - Physical Exam General Appearance: no apparent distress, moderate distress, alert Eye Exam: PERRL/EOMI, eyes nml inspection Ears, Nose, Throat Exam: normal ENT inspection, TMs normal, pharynx normal, moist mucous membranes Neck Exam: normal inspection, non-tender, supple, full range of motion Respiratory Exam: normal breath sounds, lungs clear, No respiratory distress Cardiovascular Exam: regular rate/rhythm, normal heart sounds, normal peripheral pulses Gastrointestinal/Abdomen Exam: soft, normal bowel sounds, No tenderness, No mass Back Exam: normal inspection, normal range of motion, No CVA tenderness, No vert ebral tenderness Extremity Exam: normal inspection, normal range of motion, pelvis stable Neurologic Exam: alert, oriented x 3, cooperative, nml cerebellar function, nml station & gait, sensation nml, agitation, No motor deficits Skin Exam: normal color, warm, dry, No rash Lymphatic Exam: No adenopathy SpO2 Interpretation: normal SpO2: 99 O2 Delivery: Room Air - Course Nursing assessment & vital signs reviewed: Yes EKG Interpreted by Me: RATE (73), Sinus Rhythm, NORMAL AXIS, NORMAL INTERVALS, NORMAL QRS, NORMAL ST-T - Radiology Exams Chest X-ray Interpretation: Interpreted by me, Negative Ordered Tests: Active Orders 24 hr Category Date Time Status EKG-ER Only STAT Care 04/15/20 10:00 Active CHEST 1 VIEW (PORTABLE) Stat Exams 04/15/20 10:01 Taken AMYLASE Stat Lab 04/15/20 10:20 Completed CBC W DIFF Stat Lab 04/15/20 10:20 Completed CK-Creatinine Phosphokinase Stat Lab 04/15/20 10:20 Completed CMP Stat Lab 04/15/20 10:20 Completed D-DIMER QUANTITATIVE Stat Lab 04/15/20 10:20 Completed Erythrocyte Sedimentation Rate Stat Lab 04/15/20 10:20 Completed LIPASE Stat Lab 04/15/20 10:20 Completed Lactic Acid Stat Lab 04/15/20 10:00 Completed MAGNESIUM Stat Lab 04/15/20 10:20 Completed NT PRO BNP Stat Lab 04/15/20 10:20 Completed PROTIME WITH INR Stat Lab 04/15/20 10:20 Completed T4 (Thyroxine) Stat Lab 04/15/20 10:20 Completed TROPONIN Q3H Lab 04/15/20 10:20 Completed TROPONIN Q3H Lab 04/15/20 13:00 Ordered TROPONIN Q3H Lab 04/15/20 16:00 Ordered TROPONIN Q3H Lab 04/15/20 19:00 Ordered TROPONIN Q3H Lab 04/15/20 22:00 Ordered TSH, 3RD Generation Stat Lab 04/15/20 10:20 Completed UA W/RFX UR CULTURE Stat Lab 04/15/20 10:07 Completed Medication Summary Discontinued Medications Generic Name Dose Route Start Last Admin Trade Name Freq PRN Reason Stop Dose Admin Amlodipine Besylate 5 mg 04/15/20 10:06 04/15/20 10:13 Norvasc 5 Mg PO 04/15/20 10:07 5 mg STAT ONE Administration Amlodipine Besylate Confirm 04/15/20 10:09 Norvasc 5 Mg Administered 04/15/20 10:10 Dose 5 mg .ROUTE .STK-MED ONE Clonidine 0.1 mg 04/15/20 10:05 04/15/20 10:13 Catapres 0.1 Mg PO 04/15/20 10:06 0.1 mg STAT ONE Administration Clonidine Confirm 04/15/20 10:09 Catapres 0.1 Mg Administered 04/15/20 10:10 Dose 0.1 mg .ROUTE .STK-MED ONE Sodium Chloride 1,000 mls @ 999 mls/hr 04/15/20 10:00 04/15/20 11:13 Sodium Chloride 0.9% 1000 Ml IV 04/15/20 11:00 Infused .Q1H1M STA Infusion Sodium Chloride Confirm 04/15/20 10:09 Sodium Chloride 0.9% 1000 Ml Administered 04/15/20 10:10 Dose 1,000 mls @ ud .ROUTE .STK-MED ONE Lorazepam 1 mg 04/15/20 10:57 04/15/20 11:00 Ativan 2 Mg/1 Ml Vial IV 04/15/20 10:58 1 mg STAT ONE Administration Lorazepam Confirm 04/15/20 11:00 Ativan 2 Mg/1 Ml Vial Administered 04/15/20 11:01 Dose 2 mg .ROUTE .STK-MED ONE Lab/Rad Data: Laboratory Result Diagrams 04/15/20 10:20 04/15/20 10:20 Laboratory Results 04/15/20 04/15/20 04/15/20 Range/Units 10:20 10:20 10:20 WBC (4.0-10.5) K/mm3 RBC (4.1-5.4) M/mm3 Hgb (12.0-16.0) gm/dl Hct (35-47) % MCV (78-100) fl MCH (26-32) pg MCHC (32-36) g/dl RDW (11.5-14.0) % Plt Count (150-450) K/mm3 MPV (7.5-11.0) fl Gran % (36.0-66.0) % Eos # (Auto) (0-0.5) Absolute Lymphs (auto) (1.0-4.6) Absolute Monos (auto) (0.0-1.3) Lymphocytes % (24.0-44.0) % Monocytes % (0.0-12.0) % Eosinophils % (0.00-5.0) % Basophils % (0.0-0.4) % Absolute Granulocytes (1.4-6.9) Basophils # (0-0.4) ESR (0-20) mm/hr PT 10.9 (9.95-12.35) SECONDS INR 0.96 (0.8-3.0) D-Dimer 479 (215-500) ng/mL Sodium (137-145) mmol/L Potassium (3.5-5.1) mmol/L Chloride (98-107) mmol/L Carbon Dioxide (22-30) mmol/L Anion Gap (5-15) MEQ/L BUN (7-17) mg/dL Creatinine (0.52-1.04) mg/dL Estimated GFR ML/MIN Glucose (74-106) mg/dL Lactic Acid (0.4-2.0) Calcium (8.4-10.2) mg/dL Magnesium (1.6-2.3) mg/dL Total Bilirubin (0.2-1.3) mg/dL AST (14-36) U/L ALT (0-35) U/L Alkaline Phosphatase (38-126) U/L Creatine Kinase (30-135) U/L Troponin I < 0.012 (0.000-0.034) ng/mL NT-Pro-B Natriuret Pep (0-900) pg/mL Serum Total Protein (6.3-8.2) g/dL Albumin (3.5-5.0) g/dL Amylase (30-110) U/L Lipase (23-300) U/L Thyroxine (T4) 8.67 (5.53-10.96) ug/dL TSH 3rd Generation (0.47-4.68) mIU/L Urine Color (YELLOW) Urine Appearance (CLEAR) Urine pH (5-6) Ur Specific [place] (1.005-1.025) Urine Protein (Negative) Urine Ketones (NEGATIVE) Urine Blood (0-5) [place] Urine Nitrite (NEGATIVE) Urine Bilirubin (NEGATIVE) Urine Urobilinogen (0-1) mg/dL Ur Leukocyte Esterase (NEGATIVE) Urine WBC (Auto) (0-5) /HPF Urine RBC (Auto) (0-2) /HPF U Epithel Cells (Auto) (FEW) /HPF Urine Bacteria (Auto) (NEGATIVE) /HPF Urine Mucus (Auto) (NEGATIVE) /HPF Urine Culture Reflexed (NO) Urine Glucose (NEGATIVE) mg/dL 04/15/20 04/15/20 04/15/20 Range/Units 10:20 10:20 10:07 WBC 4.9 (4.0-10.5) K/mm3 RBC 4.13 (4.1-5.4) M/mm3 Hgb 12.3 (12.0-16.0) gm/dl Hct 37.2 (35-47) % MCV 90.1 (78-100) fl MCH 29.8 (26-32) pg MCHC 33.1 (32-36) g/dl RDW 12.5 (11.5-14.0) % Plt Count 476 H (150-450) K/mm3 MPV 9.2 (7.5-11.0) fl Gran % 53.4 (36.0-66.0) % Eos # (Auto) 0.08 (0-0.5) Absolute Lymphs (auto) 1.56 (1.0-4.6) Absolute Monos (auto) 0.59 (0.0-1.3) Lymphocytes % 32.1 (24.0-44.0) % Monocytes % 12.1 H (0.0-12.0) % Eosinophils % 1.6 (0.00-5.0) % Basophils % 0.8 (0.0-0.4) % Absolute Granulocytes 2.59 (1.4-6.9) Basophils # 0.04 (0-0.4) ESR 5 (0-20) mm/hr PT (9.95-12.35) SECONDS INR (0.8-3.0) D-Dimer (215-500) ng/mL Sodium 122 L (137-145) mmol/L Potassium 4.3 (3.5-5.1) mmol/L Chloride 88 L (98-107) mmol/L Carbon Dioxide 24 (22-30) mmol/L Anion Gap 13.5 (5-15) MEQ/L BUN 8 (7-17) mg/dL Creatinine 0.55 (0.52-1.04) mg/dL Estimated GFR > 60.0 ML/MIN Glucose 98 (74-106) mg/dL Lactic Acid (0.4-2.0) Calcium 9.6 (8.4-10.2) mg/dL Magnesium 1.6 (1.6-2.3) mg/dL Total Bilirubin 0.30 (0.2-1.3) mg/dL AST 35 (14-36) U/L ALT 26 (0-35) U/L Alkaline Phosphatase 62 (38-126) U/L Creatine Kinase 54 (30-135) U/L Troponin I (0.000-0.034) ng/mL NT-Pro-B Natriuret Pep 300 (0-900) pg/mL Serum Total Protein 7.1 (6.3-8.2) g/dL Albumin 4.3 (3.5-5.0) g/dL Amylase 89 (30-110) U/L Lipase 98 (23-300) U/L Thyroxine (T4) (5.53-10.96) ug/dL TSH 3rd Generation 0.652 (0.47-4.68) mIU/L Urine Color YELLOW (YELLOW) Urine Appearance CLEAR (CLEAR) Urine pH 6.0 (5-6) Ur Specific [place] 1.014 (1.005-1.025) Urine Protein 30 (Negative) Urine Ketones NEGATIVE (NEGATIVE) Urine Blood NEGATIVE (0-5) [place] Urine Nitrite NEGATIVE (NEGATIVE) Urine Bilirubin NEGATIVE (NEGATIVE) Urine Urobilinogen NEGATIVE (0-1) mg/dL Ur Leukocyte Esterase NEGATIVE (NEGATIVE) Urine WBC (Auto) NONE (0-5) /HPF Urine RBC (Auto) 0-2 (0-2) /HPF U Epithel Cells (Auto) RARE (FEW) /HPF Urine Bacteria (Auto) NONE (NEGATIVE) /HPF Urine Mucus (Auto) SLIGHT (NEGATIVE) /HPF Urine Culture Reflexed NO (NO) Urine Glucose NEGATIVE (NEGATIVE) mg/dL 04/15/20 Range/Units 10:00 WBC (4.0-10.5) K/mm3 RBC (4.1-5.4) M/mm3 Hgb (12.0-16.0) gm/dl Hct (35-47) % MCV (78-100) fl MCH (26-32) pg MCHC (32-36) g/dl RDW (11.5-14.0) % Plt Count (150-450) K/mm3 MPV (7.5-11.0) fl Gran % (36.0-66.0) % Eos # (Auto) (0-0.5) Absolute Lymphs (auto) (1.0-4.6) Absolute Monos (auto) (0.0-1.3) Lymphocytes % (24.0-44.0) % Monocytes % (0.0-12.0) % Eosinophils % (0.00-5.0) % Basophils % (0.0-0.4) % Absolute Granulocytes (1.4-6.9) Basophils # (0-0.4) ESR (0-20) mm/hr PT (9.95-12.35) SECONDS INR (0.8-3.0) D-Dimer (215-500) ng/mL Sodium (137-145) mmol/L Potassium (3.5-5.1) mmol/L Chloride (98-107) mmol/L Carbon Dioxide (22-30) mmol/L Anion Gap (5-15) MEQ/L BUN (7-17) mg/dL Creatinine (0.52-1.04) mg/dL Estimated GFR ML/MIN Glucose (74-106) mg/dL Lactic Acid 1.5 (0.4-2.0) Calcium (8.4-10.2) mg/dL Magnesium (1.6-2.3) mg/dL Total Bilirubin (0.2-1.3) mg/dL AST (14-36) U/L ALT (0-35) U/L Alkaline Phosphatase (38-126) U/L Creatine Kinase (30-135) U/L Troponin I (0.000-0.034) ng/mL NT-Pro-B Natriuret Pep (0-900) pg/mL Serum Total Protein (6.3-8.2) g/dL Albumin (3.5-5.0) g/dL Amylase (30-110) U/L Lipase (23-300) U/L Thyroxine (T4) (5.53-10.96) ug/dL TSH 3rd Generation (0.47-4.68) mIU/L Urine Color (YELLOW) Urine Appearance (CLEAR) Urine pH (5-6) Ur Specific [place] (1.005-1.025) Urine Protein (Negative) Urine Ketones (NEGATIVE) Urine Blood (0-5) [place] Urine Nitrite (NEGATIVE) Urine Bilirubin (NEGATIVE) Urine Urobilinogen (0-1) mg/dL Ur Leukocyte Esterase (NEGATIVE) Urine WBC (Auto) (0-5) /HPF Urine RBC (Auto) (0-2) /HPF U Epithel Cells (Auto) (FEW) /HPF Urine Bacteria (Auto) (NEGATIVE) /HPF Urine Mucus (Auto) (NEGATIVE) /HPF Urine Culture Reflexed (NO) Urine Glucose (NEGATIVE) mg/dL - Progress Progress: improved Discussed with : Brie Will see patient in: hospital (observation) Counseled pt/family regarding: lab results - Departure Departure Disposition: Observation Clinical Impression: Hyponatremia Condition: Stable Critical Care Time: No Referrals: CHILO FARFAN MD [Primary Care Provider] -
[2020-04-15] MEDS: Sodium Chloride 0.9% 1000 ML 1,000 ML IV SCH (13:06)
[2020-04-15] MEDS: Neurontin 400 MG PO SCH ×3 (14:38→16:29)
[2020-04-15] MEDS: NORCO 5/325 MG PO SCH ×2 (14:38→21:38)
[2020-04-15] MEDS: NON-FORMULARY ITEM PO SCH ×2 (16:29→22:35)
[2020-04-15] MEDS ORDERED: NON-FORMULARY ITEM (Gabapentin [Neurontin] 800 MG) PO SCH (17:00)
[2020-04-15 19:22] LABS: ANION GAP 10.4 MEQ/L (5-15); BLOOD UREA NITROGEN 14 mg/dL (7-17); CHLORIDE 98 mmol/L (98-107); Calcium 9.2 mg/dL (8.4-10.2); Carbon Dioxide 26 mmol/L (22-30); Creatinine 1 0.79 mg/dL (0.52-1.04); EST GLOMERULAR FILTRATION RATE > 60.0 ML/MIN; Glucose 98 mg/dL (74-106); Potassium 4.9 mmol/L (3.5-5.1)
--- NOTE | 2020-04-15 19:23 | XRAY ---
Indication: Fatigue, cough, and weakness. Comparison: July 12, 2018. Portable chest unchanged again demonstrating minimal right suprahilar fibrosis/scarring with a few calcified granulomas. Remaining heart and lungs unremarkable. Bony thorax intact again with mild osteopenia and degenerative changes. Impression: Continued nonacute chest with chronic features.
[2020-04-15 19:26] LABS: SODIUM 130 mmol/L (137-145)
[2020-04-15] MEDS ORDERED: Lopressor 25MG Tab PO SCH (22:00)
[2020-04-15] MEDS ORDERED: Zestril 5 MG PO SCH (22:00)
[2020-04-15] MEDS ORDERED: PLAVIX 75 MG Tablet PO SCH (22:00)
[2020-04-15] MEDS ORDERED: Zestril 10 MG PO SCH (22:00)
[2020-04-15] MEDS ORDERED: ZOCOR 20MG PO SCH (22:00)
[2020-04-15] MEDS ORDERED: Ambien 10 MG PO SCH (22:00)
[2020-04-16 05:59] LABS: Absolute Neutrophil Ct (ANC) 1.99 (1.4-6.9); BASOPHIL % 0.9 % (0.0-0.4); Basophil (Absolute #) 0.04 (0-0.4); Eosinophil % 2.6 % (0.00-5.0); Eosinophil (Absolute #) 0.11 (0-0.5); Hematocrit 34.4 % (35-47); Hemoglobin 11.1 gm/dl (12.0-16.0); Lymphocyte (Absolute #) 1.71 (1.0-4.6); Lymphocytes % 39.7 % (24.0-44.0); Mean Cell Volume 92.5 fl (78-100); Mean Corpuscular Hemoglobin 29.8 pg (26-32); Mean Corpuscular Hgb Concent. 32.3 g/dl (32-36); Mean Platelet Volume 9.7 fl (7.5-11.0); Monocyte (Absolute #) 0.46 (0.0-1.3); Monocytes % 10.7 % (0.0-12.0); Neutrophil % 46.1 % (36.0-66.0); Platelet Count 424 K/mm3 (150-450); Red Blood Count 3.72 M/mm3 (4.1-5.4); White Blood Count 4.3 K/mm3 (4.0-10.5)
[2020-04-16 06:11] LABS: ALBUMIN 3.5 g/dL (3.5-5.0); ALKALINE PHOSPHATASE 49 U/L (38-126); ANION GAP 12.6 MEQ/L (5-15); BLOOD UREA NITROGEN 11 mg/dL (7-17); CHLORIDE 101 mmol/L (98-107); Calcium 9.3 mg/dL (8.4-10.2); Carbon Dioxide 22 mmol/L (22-30); Creatinine 1 0.56 mg/dL (0.52-1.04); EST GLOMERULAR FILTRATION RATE > 60.0 ML/MIN; Glucose 115 mg/dL (74-106); Potassium 4.6 mmol/L (3.5-5.1); SGOT/AST 37 U/L (14-36); SGPT/ALT 33 U/L (0-35); SODIUM 131 mmol/L (137-145); Total Protein 5.9 g/dL (6.3-8.2)
[2020-04-16 07:42] VITALS: BP 111/54; PULSE 69; O2SAT 97
[2020-04-16] MEDS: Sodium Chloride 0.9% 1000 ML 1,000 ML IV SCH (08:13)
[2020-04-16] MEDS: NORCO 5/325 MG PO SCH (09:02)
[2020-04-16] MEDS ORDERED: ECOTRIN 81 MG PO SCH (10:00)
[2020-04-16] MEDS ORDERED: NON-FORMULARY ITEM PO SCH (10:00)
--- NOTE | 2020-04-16 23:05 | PCM.SSS ---
History of Present Illness - Chief Complaint Chief Complaint: hyponatremia History of Present Illness: is a 69 year old female. Medications & Allergies Home Medications: Home Medication List Gabapentin [Neurontin] 800 mg PO QID 07/28/14 [History Confirmed 05/01/20] Aspirin [Aspir-Low] 81 mg PO DAILY 03/28/16 [History Confirmed 05/01/20] Atorvastatin Calcium [Lipitor] 20 mg PO HS 03/28/16 [History Confirmed 05/01/20] Clopidogrel Bisulfate 75 mg [PLAVIX 75 MG Tablet] 75 mg PO HS 03/28/16 [History Confirmed 05/01/20] lisinopriL [Lisinopril] 2.5 mg PO HS 03/28/16 [History Confirmed 05/01/20] Hydrocodone Bit/Acetaminophen [[place] 5-325 Tablet] 1 each PO TID 07/10/17 [History Confirmed 05/01/20] Zolpidem Tartrate 10 mg [Ambien 10 MG] 10 mg PO QHS 07/12/18 [History Confirmed 05/01/20] Metoprolol Tartrate 25 mg [Lopressor 25MG Tab] 25 mg PO HS 04/15/20 [History Confirmed 05/01/20] Allergies/Adverse Reactions: Allergies Allergy/AdvReac Type Severity Reaction Status Date / Time iodine Allergy Verified 11/17/19 18:07 penicillin G Allergy Verified 11/17/19 18:07 codeine AdvReac Intermediate Vomiting Verified 11/17/19 18:07 - Past Medical History Past Medical History: Yes Neurological History: Other ENT History: No Pertinent History Cardiac History: Myocardial Infarction ([place]) Respiratory History: No Pertinent History Endocrine Medical History: No Pertinent History Musculoskelatal History: Osteoarthritis GI Medical History: GERD History: No Pertinent History Pyscho-Social History: No Pertinent History Reproductive Disorders: No Pertinent History Comment: 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, reflex sympothetic dystrophy, stent x 2 - Female History Are you now?: No - Past Surgical History Past Surgical History: Yes Neuro Surgical History: No Pertinent History Cardiac History: Cardiac Catheterization, Cardiac Stent Respiratory Surgery: No Pertinent History GI Surgical History: No Pertinent History Musculskeletal Surgical Hx: Orthopedic Surgery Female Surgical History: Section, Hysterectomy Other Surgical History: NECK - Social History Smoking Status: Former smoker Exposure to second hand smoke: Yes Alcohol: None Drug Use: none Significant Family History: heart disease, hypertension - Physical Exam Vital Signs: Vital Signs - 24 hr Temp Pulse Resp BP Pulse Ox 04/16/20 08:00 16 04/16/20 07:40 98.0 F 69 16 111/54 97 04/16/20 04:00 98.5 F 70 17 113/54 96 04/16/20 00:00 72 18 04/15/20 23:52 17 Results - Labs Lab/Micro Results: Lab Results-Last 24 Hours 04/16/20 04/16/20 Range/Units 05:17 05:17 WBC 4.3 (4.0-10.5) K/mm3 RBC 3.72 L (4.1-5.4) M/mm3 Hgb 11.1 L (12.0-16.0) gm/dl Hct 34.4 L (35-47) % MCV 92.5 (78-100) fl MCH 29.8 (26-32) pg MCHC 32.3 (32-36) g/dl RDW 13.0 (11.5-14.0) % Plt Count 424 (150-450) K/mm3 MPV 9.7 (7.5-11.0) fl Gran % 46.1 (36.0-66.0) % Eos # (Auto) 0.11 (0-0.5) Absolute Lymphs (auto) 1.71 (1.0-4.6) Absolute Monos (auto) 0.46 (0.0-1.3) Lymphocytes % 39.7 (24.0-44.0) % Monocytes % 10.7 (0.0-12.0) % Eosinophils % 2.6 (0.00-5.0) % Basophils % 0.9 (0.0-0.4) % Absolute Granulocytes 1.99 (1.4-6.9) Basophils # 0.04 (0-0.4) Sodium 131 L (137-145) mmol/L Potassium 4.6 (3.5-5.1) mmol/L Chloride 101 (98-107) mmol/L Carbon Dioxide 22 (22-30) mmol/L Anion Gap 12.6 (5-15) MEQ/L BUN 11 (7-17) mg/dL Creatinine 0.56 (0.52-1.04) mg/dL Estimated GFR > 60.0 ML/MIN Glucose 115 H (74-106) mg/dL Calcium 9.3 (8.4-10.2) mg/dL Total Bilirubin 0.30 (0.2-1.3) mg/dL AST 37 H (14-36) U/L ALT 33 (0-35) U/L Alkaline Phosphatase 49 (38-126) U/L Serum Total Protein 5.9 L (6.3-8.2) g/dL Albumin 3.5 (3.5-5.0) g/dL - Radiology Impressions Radiology Exams & Impressions: Radiology Procedures Category Date Time Status CHEST 1 VIEW (PORTABLE) Stat Exams 04/15/20 10:01 Completed Assessment/Plan (1) Hyponatremia Status: Acute Code(s): E87.1 - HYPO-OSMOLALITY AND HYPONATREMIA Hospital Summary - Vitals & Intake/Output Vital Signs: Vital Signs Temperature 98.0 F 04/16/20 07:40 Pulse Rate 69 04/16/20 07:40 Respiratory Rate 16 04/16/20 08:00 Blood Pressure 111/54 04/16/20 07:40 O2 Sat by Pulse Oximetry 97 04/16/20 07:40 Intake & Output: Intake & Output 04/14/20 04/15/20 04/16/20 04/17/20 11:59 11:59 11:59 11:59 Intake Total 1158 Output Total 1600 Balance -442 Weight 38.3 kg 38.6 kg - Lab Result Diagrams: 04/16/20 05:17 04/16/20 05:17 Lab Results-Last 24 Hrs: Lab Results-Last 24 Hours 04/16/20 04/16/20 Range/Units 05:17 05:17 WBC 4.3 (4.0-10.5) K/mm3 RBC 3.72 L (4.1-5.4) M/mm3 Hgb 11.1 L (12.0-16.0) gm/dl Hct 34.4 L (35-47) % MCV 92.5 (78-100) fl MCH 29.8 (26-32) pg MCHC 32.3 (32-36) g/dl RDW 13.0 (11.5-14.0) % Plt Count 424 (150-450) K/mm3 MPV 9.7 (7.5-11.0) fl Gran % 46.1 (36.0-66.0) % Eos # (Auto) 0.11 (0-0.5) Absolute Lymphs (auto) 1.71 (1.0-4.6) Absolute Monos (auto) 0.46 (0.0-1.3) Lymphocytes % 39.7 (24.0-44.0) % Monocytes % 10.7 (0.0-12.0) % Eosinophils % 2.6 (0.00-5.0) % Basophils % 0.9 (0.0-0.4) % Absolute Granulocytes 1.99 (1.4-6.9) Basophils # 0.04 (0-0.4) Sodium 131 L (137-145) mmol/L Potassium 4.6 (3.5-5.1) mmol/L Chloride 101 (98-107) mmol/L Carbon Dioxide 22 (22-30) mmol/L Anion Gap 12.6 (5-15) MEQ/L BUN 11 (7-17) mg/dL Creatinine 0.56 (0.52-1.04) mg/dL Estimated GFR > 60.0 ML/MIN Glucose 115 H (74-106) mg/dL Calcium 9.3 (8.4-10.2) mg/dL Total Bilirubin 0.30 (0.2-1.3) mg/dL AST 37 H (14-36) U/L ALT 33 (0-35) U/L Alkaline Phosphatase 49 (38-126) U/L Serum Total Protein 5.9 L (6.3-8.2) g/dL Albumin 3.5 (3.5-5.0) g/dL - Radiology Exams Ordered Rad Exams-Entire Visit: Radiology Procedures Category Date Time Status CHEST 1 VIEW (PORTABLE) Stat Exams 04/15/20 10:01 Completed - Discharge Disposition: Home, Self-Care Condition: Stable Prescriptions: Continue Gabapentin [Neurontin] 800 mg PO QID Clopidogrel Bisulfate 75 mg [PLAVIX 75 MG Tablet] 75 mg PO HS Aspirin [Aspir-Low] 81 mg PO DAILY lisinopriL [Lisinopril] 2.5 mg PO HS Atorvastatin Calcium [Lipitor] 20 mg PO HS Hydrocodone Bit/Acetaminophen [[place] 5-325 Tablet] 1 each PO TID Zolpidem Tartrate 10 mg [Ambien 10 MG] 10 mg PO QHS Metoprolol Tartrate 25 mg [Lopressor 25MG Tab] 25 mg PO HS Instructions: Hyponatremia (DC) Follow up with: CHILO FARFAN MD [Primary Care Provider] - Forms: Discharge Instructions
== END 2020-04-16 09:45 | disposition home or self-care (01) ==
LOC: ED 09:48 → MED SURG 12:00
PROVIDERS: ADMIT Family Medicine; ATTEND Family Medicine
DX: E87.1 Hypo-osmolality and hyponatremia (principal); R53.1 Weakness; Z79.899 Other long term (current) drug therapy; Z79.01 Long term (current) use of anticoagulants; R07.9 Chest pain, unspecified
CPT/HCPCS: 36000; 36415; 71045; 80048; 80053; 81001; 82150; 82550; 83605; 83690; 83735; 83880; 84436; 84443; 84484; 85025; 85379; 85610; 85652; 93005; 93268; 96360; 96374; 99285; G0378; J2060; A9270-GY

== ENCOUNTER 2020-05-01 18:09 | Emergency (ER) | payer MEDICARE ==
[2020-05-01 18:20] VITALS: PULSE 85
--- NOTE | 2020-05-01 18:24 | ERPHSYRPT ---
- History of Present Illness Time Seen by Provider: 05/01/20 18:20 Historian: patient Exam Limitations: no limitations Patient Subjective Stated Complaint: pt here for pain to left rib area after getting adjusted today. Triage Nursing Assessment: pt alert, resp easy, skin w/d/p, face mask in place, Physician History: Patient is a 69-year-old white female who saw her chiropractor today and had a generalized adjustment of her entire body but particularly the left hip. She complains of pain in the right ribs anterior and posterior worse with a deep breath or cough she does not complain of shortness of breath. Timing/Duration: today Activities at Onset: other (During chiropractic adjustment) Quality: stabbing Location: other (Left chest wall) Chest Pain Radiation: no radiation Severity of Pain-Max: moderate Severity of Pain-Current: moderate Modifying Factors: Improves With: breathing, movement, change in position Associated Symptoms: cough, hurts to breathe Nitro Today/Relief: no nitro taken today Aspirin Treatment Today: no aspirin today Allergies/Adverse Reactions: iodine Allergy (Verified 11/17/19 18:07) penicillin G Allergy (Verified 11/17/19 18:07) codeine Adverse Reaction (Intermediate, Verified 11/17/19 18:07) Vomiting Home Medications: Gabapentin [Neurontin] 800 mg PO QID 07/28/14 [History] Aspirin [Aspir-Low] 81 mg PO DAILY 03/28/16 [History] Atorvastatin Calcium [Lipitor] 20 mg PO HS 03/28/16 [History] Clopidogrel Bisulfate 75 mg [PLAVIX 75 MG Tablet] 75 mg PO HS 03/28/16 [History] lisinopriL [Lisinopril] 2.5 mg PO HS 03/28/16 [History] Hydrocodone Bit/Acetaminophen [[place] 5-325 Tablet] 1 each PO TID 07/10/17 [History] Zolpidem Tartrate 10 mg [Ambien 10 MG] 10 mg PO QHS 07/12/18 [History] Metoprolol Tartrate 25 mg [Lopressor 25MG Tab] 25 mg PO HS 04/15/20 [History] Hx Tetanus, Diphtheria Vaccination/Date Given: Yes Hx Influenza Vaccination/Date Given: Yes Hx Pneumococcal Vaccination/Date Given: Yes Immunizations Up to Date: Yes Travel Risk - International Travel Have you traveled outside of the country in past 3 weeks: No - Coronavirus Screening Are you exhibiting any of the following symptoms?: No Close contact with a COVID-19 positive Pt in past 14-21 Days: No - Review of Systems Constitutional: No Fever, No Chills Eyes: No Symptoms Ears, Nose, & Throat: No Symptoms Respiratory: No Cough, No Dyspnea Cardiac: Chest Pain, No Edema, No Syncope Abdominal/Gastrointestinal: No Abdominal Pain, No Nausea, No Vomiting, No Diarrh ea Genitourinary Symptoms: No Dysuria Musculoskeletal: No Back Pain, No Neck Pain Skin: No Rash Neurological: No Dizziness, No Focal Weakness, No Sensory Changes Psychological: No Symptoms Endocrine: No Symptoms All Other Systems: Reviewed and Negative - Past Medical History Pertinent Past Medical History: Yes Neurological History: Other ENT History: No Pertinent History Cardiac History: Myocardial Infarction ([place]) Respiratory History: No Pertinent History Endocrine Medical History: No Pertinent History Musculoskeletal History: Osteoarthritis GI Medical History: GERD History: No Pertinent History Psycho-Social History: No Pertinent History Female Reproductive Disorders: No Pertinent History Other Medical History: 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, reflex sympothetic dystrophy, stent x 2 - Past Surgical History Past Surgical History: Yes Neuro Surgical History: No Pertinent History Cardiac: Cardiac Catheterization, Cardiac Stent Respiratory: No Pertinent History Gastrointestinal: No Pertinent History Musculoskeletal: Orthopedic Surgery Female Surgical History: Section, Hysterectomy Other Surgical History: NECK - Social History Smoking Status: Never smoker Exposure to second hand smoke: Yes Alcohol Use: None Drug Use: none Patient Lives Alone: Yes Significant Family History: heart disease, hypertension - Female History Hx Last Menstrual Period: post - Nursing Vital Signs Nursing Vital Signs: Initial Vital Signs Temperature 98.7 F 05/01/20 18:16 Pulse Rate 85 05/01/20 18:16 Respiratory Rate 18 05/01/20 18:16 Blood Pressure 193/107 05/01/20 18:16 O2 Sat by Pulse Oximetry 99 05/01/20 18:16 Pain Scale Pain Intensity 9 - Physical Exam General Appearance: mild distress, alert Eye Exam: PERRL/EOMI, eyes nml inspection Ears, Nose, Throat Exam: normal ENT inspection, moist mucous membranes Neck Exam: normal inspection, non-tender, supple, full range of motion Respiratory Exam: normal breath sounds, chest tenderness, lungs clear, other (Andrew to palpation over the left rib cage), No respiratory distress Cardiovascular Exam: regular rate/rhythm, normal heart sounds Gastrointestinal/Abdomen Exam: soft, No tenderness, No mass Back Exam: normal inspection, No CVA tenderness, No vertebral tenderness Extremity Exam: normal inspection, normal range of motion Neurologic Exam: alert, oriented x 3, cooperative, normal mood/affect, sensation nml, No motor deficits Skin Exam: normal color, warm, dry SpO2 Interpretation: normal SpO2: 99 O2 Delivery: Room Air - Course Nursing assessment & vital signs reviewed: Yes - Radiology Exams Ribs X-ray Interpretation: Interpreted by me, Negative Ordered Tests: Active Orders 24 hr Category Date Time Status RIBS UNILATERAL Stat Exams 05/01/20 18:19 Taken - Progress Progress: improved Air Movement: good Blood Culture(s) Obtained: No Antibiotics given: No - Departure Departure Disposition: Home Clinical Impression: Contusion of rib on left side Condition: Stable Critical Care Time: No Referrals: CHILO FARFAN MD [Primary Care Provider] - Instructions: Bruised Rib
[2020-05-01 19:01] VITALS: BP 153/98; O2SAT 96
--- NOTE | 2020-05-02 08:33 | XRAY ---
Indication: Left-sided pain following chiropractor visit. Comparison: November 03, 2018. 2 view left ribs again demonstrates mild osteopenia, mild left acromioclavicular degenerative arthropathy, mild scattered vascular calcifications, and right hilar calcified nodes. No new/acute bony, articular, or soft tissue abnormalities.
== END 2020-05-01 19:07 | disposition home or self-care (01) ==
LOC: ED 18:09
DX: S20.212A Contusion of left front wall of thorax, initial encounter (principal); Z79.899 Other long term (current) drug therapy
CPT/HCPCS: 71100; 99283

== ENCOUNTER 2020-09-01 15:02 | Observation (INO) | payer MEDICARE ==
--- NOTE | 2020-09-01 15:27 | ERPHSYRPT ---
- History of Present Illness Time Seen by Provider: 09/01/20 15:22 Source: patient Exam Limitations: no limitations Patient Subjective Stated Complaint: Pt states that her blood pressure has been raising for a couple of weeks and today she went to Dr. Farfan' office and they took her pressure and it was 180something over 100 something and they told her to come to the ER due to Dr. Farfan being out today Triage Nursing Assessment: Pt drove self to the ER, hypertensive, rates head pain as 8/10, denies chest pain, pulses normal, skin n/w/d, no shortness of breath Physician History: This is a 70-year-old white female patient of Dr. Farfan who has a history of high blood pressure, elevated cholesterol and coronary artery disease with cardiac stents in place and presents to our emergency department with complaints of headache and elevated blood pressure. Patient has been monitoring her blood pressure the last several days and notes it has been increasing. She had a headache today went to Dr. Farfan's office and at that time her systolic blood pressure was in the 180s. She arrives in our emergency department on her own with a systolic blood pressure in the 200s. Patient denies chest pain. She denies shortness of breath. Patient does take Plavix daily Severity: moderate Associated Symptoms: headaches Allergies/Adverse Reactions: iodine Allergy (Verified 09/01/20 15:17) penicillin G Allergy (Verified 09/01/20 15:17) codeine Adverse Reaction (Intermediate, Verified 09/01/20 15:17) Vomiting Home Medications: Gabapentin [Neurontin] 800 mg PO QID 07/28/14 [History] Aspirin [Aspir-Low] 81 mg PO DAILY 03/28/16 [History] Atorvastatin Calcium [Lipitor] 20 mg PO UD 03/28/16 [History] Clopidogrel Bisulfate 75 mg [PLAVIX 75 MG Tablet] 75 mg PO HS 03/28/16 [History] lisinopriL [Lisinopril] 2.5 mg PO HS 03/28/16 [History] Hydrocodone Bit/Acetaminophen [[place] 5-325 Tablet] 1 each PO TID 07/10/17 [History] Zolpidem Tartrate 10 mg [Ambien 10 MG] 10 mg PO QHS 07/12/18 [History] Metoprolol Tartrate 25 mg [Lopressor 25MG Tab] 25 mg PO HS 04/15/20 [History] Hx Tetanus, Diphtheria Vaccination/Date Given: Yes Hx Influenza Vaccination/Date Given: Yes Hx Pneumococcal Vaccination/Date Given: Yes Travel Risk - International Travel Have you traveled outside of the country in past 3 weeks: No - Coronavirus Screening Are you exhibiting any of the following symptoms?: No Close contact with a COVID-19 positive Pt in past 14-21 Days: No - Vaccine Status Have you recieved a Covid-19 vaccination: No - Review of Systems Constitutional: No Symptoms Eyes: No Symptoms Ears, Nose, & Throat: No Symptoms Respiratory: No Symptoms Cardiac: No Symptoms Abdominal/Gastrointestinal: No Symptoms Genitourinary Symptoms: No Symptoms Musculoskeletal: No Symptoms Skin: No Symptoms Neurological: Headache Psychological: No Symptoms Endocrine: No Symptoms Hematologic/Lymphatic: No Symptoms Immunological/Allergic: No Symptoms All Other Systems: Reviewed and Negative - Past Medical History Pertinent Past Medical History: Yes Neurological History: TIA ENT History: No Pertinent History Cardiac History: High Cholesterol, Hypertension, Myocardial Infarction ([place]) Respiratory History: No Pertinent History Endocrine Medical History: Liver Disease Musculoskeletal History: Arthritis, Osteoporosis GI Medical History: GERD History: No Pertinent History Psycho-Social History: No Pertinent History Female Reproductive Disorders: No Pertinent History 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, neck and face - Past Surgical History Past Surgical History: Yes Neuro Surgical History: No Pertinent History Cardiac: Cardiac Catheterization, Cardiac Stent Respiratory: No Pertinent History Gastrointestinal: No Pertinent History Musculoskeletal: Orthopedic Surgery Female Surgical History: Section, Hysterectomy Other Surgical History: NECK - Social History Smoking Status: Never smoker Exposure to second hand smoke: No Alcohol Use: None Drug Use: none Patient Lives Alone: Yes Significant Family History: heart disease, hypertension - Female History Hx Now: No - Nursing Vital Signs Nursing Vital Signs: Initial Vital Signs Temperature 98.5 F 09/01/20 15:10 Pulse Rate 73 09/01/20 15:10 Respiratory Rate 20 09/01/20 15:10 Blood Pressure 210/113 09/01/20 15:10 O2 Sat by Pulse Oximetry 98 09/01/20 15:10 Pain Scale Pain Intensity 8 - Physical Exam General Appearance: no apparent distress, alert, anxiety Eye Exam: PERRL/EOMI, eyes nml inspection Ears, Nose, Throat Exam: normal ENT inspection, moist mucous membranes Neck Exam: normal inspection, non-tender, supple, full range of motion Respiratory Exam: normal breath sounds, lungs clear, airway intact, No chest tenderness, No respiratory distress Cardiovascular Exam: regular rate/rhythm, normal heart sounds, normal peripheral pulses Gastrointestinal/Abdomen Exam: soft, normal bowel sounds, No tenderness Pelvic Exam: not done Rectal Exam: not done Back Exam: normal inspection, normal range of motion, vertebral tenderness, No CVA tenderness Extremity Exam: normal inspection, normal range of motion, pelvis stable Neurologic Exam: alert, oriented x 3, cooperative, support architect II-XII nml as tested, normal mood/affect, nml cerebellar function, nml station & gait, sensation nml Skin Exam: normal color, warm, dry Lymphatic Exam: No adenopathy SpO2 Interpretation: normal SpO2: 98 O2 Delivery: Room Air - Course Nursing assessment & vital signs reviewed: Yes EKG Interpreted by Me: RATE (72), Sinus Rhythm, NORMAL AXIS, NORMAL INTERVALS, NORMAL QRS, NORMAL ST-T, Other (There are not no ischemic changes on today's EKG. There is no change from the comparison EKG dated 04/15/2020) Ordered Tests: Active Orders 24 hr Category Date Time Status Technical Expert STAT Care 09/01/20 15:29 Active EKG-ER Only STAT Care 09/01/20 15:28 Active IV Insertion STAT Care 09/01/20 15:28 Active Pulse Oximetry (ED) STAT Care 09/01/20 15:28 Active HEAD WITHOUT CONTRAST [CT] Stat Exams 09/01/20 15:30 Completed CBC W DIFF Stat Lab 09/01/20 15:18 Completed CMP Stat Lab 09/01/20 15:18 Completed MAGNESIUM Stat Lab 09/01/20 15:18 Completed NT PRO BNP Stat Lab 09/01/20 15:18 Completed PROTIME WITH INR Stat Lab 09/01/20 16:20 Completed TROPONIN Q3H Lab 09/01/20 15:18 Completed TROPONIN Q3H Lab 09/01/20 18:30 Ordered TROPONIN Q3H Lab 09/01/20 21:30 Ordered TROPONIN Q3H Lab 09/02/20 00:30 Ordered TROPONIN Q3H Lab 09/02/20 03:30 Ordered UA W/RFX UR CULTURE Stat Lab 09/01/20 16:13 Completed Medication Summary Discontinued Medications Generic Name Dose Route Start Last Admin Trade Name Freq PRN Reason Stop Dose Admin Clonidine 0.1 mg 09/01/20 17:00 Catapres 0.1 Mg PO 09/01/20 17:01 STAT ONE Enalaprilat 1.25 mg 09/01/20 15:28 09/01/20 15:33 Vasotec I.V. 2.5 Mg IV 09/01/20 15:29 1.25 mg STAT ONE Administration Enalaprilat Confirm 09/01/20 15:32 Vasotec I.V. 2.5 Mg Administered 09/01/20 15:33 Dose 2.5 mg IV .STK-MED ONE Metoprolol Tartrate 5 mg 09/01/20 16:11 09/01/20 16:15 Lopressor 5 Mg/5 Ml Injection IV 09/01/20 16:12 5 mg STAT ONE Administration Metoprolol Tartrate Confirm 09/01/20 16:13 Lopressor 5 Mg/5 Ml Injection Administered 09/01/20 16:14 Dose 5 mg IV .STK-MED ONE Morphine Sulfate 4 mg 09/01/20 16:11 09/01/20 16:16 Morphine Sulfate 4 Mg Inj IV 09/01/20 16:12 4 mg STAT ONE Administration Morphine Sulfate Confirm 09/01/20 16:13 Morphine Sulfate 4 Mg Inj Administered 09/01/20 16:14 Dose 4 mg .ROUTE .STK-MED ONE Ondansetron HCl 4 mg 09/01/20 16:11 09/01/20 16:15 Zofran 4 Mg/2 Ml Vial IV 09/01/20 16:12 4 mg STAT ONE Administration Ondansetron HCl Confirm 09/01/20 16:13 Zofran 4 Mg/2 Ml Vial Administered 09/01/20 16:14 Dose 4 mg .ROUTE .STK-MED ONE Lab/Rad Data: Laboratory Result Diagrams 09/01/20 15:18 09/01/20 15:18 Laboratory Results 09/01/20 09/01/20 09/01/20 Range/Units 16:20 16:13 15:18 WBC (4.0-10.5) K/mm3 RBC (4.1-5.4) M/mm3 Hgb (12.0-16.0) gm/dl Hct (35-47) % MCV (78-100) fl MCH (26-32) pg MCHC (32-36) g/dl RDW (11.5-14.0) % Plt Count (150-450) K/mm3 MPV (7.5-11.0) fl Gran % (36.0-66.0) % Eos # (Auto) (0-0.5) Absolute Lymphs (auto) (1.0-4.6) Absolute Monos (auto) (0.0-1.3) Lymphocytes % (24.0-44.0) % Monocytes % (0.0-12.0) % Eosinophils % (0.00-5.0) % Basophils % (0.0-0.4) % Absolute Granulocytes (1.4-6.9) Basophils # (0-0.4) PT 10.7 (9.4-12.5) SECONDS INR 0.91 (0.8-3.0) Sodium (137-145) mmol/L Potassium (3.5-5.1) mmol/L Chloride (98-107) mmol/L Carbon Dioxide (22-30) mmol/L Anion Gap (5-15) MEQ/L BUN (7-17) mg/dL Creatinine (0.52-1.04) mg/dL Estimated GFR ML/MIN Glucose (74-106) mg/dL Calcium (8.4-10.2) mg/dL Magnesium (1.6-2.3) mg/dL Total Bilirubin (0.2-1.3) mg/dL AST (14-36) U/L ALT (0-35) U/L Alkaline Phosphatase (38-126) U/L Troponin I < 0.012 (0.000-0.034) ng/mL NT-Pro-B Natriuret Pep (0-900) pg/mL Serum Total Protein (6.3-8.2) g/dL Albumin (3.5-5.0) g/dL Urine Color STRAW (YELLOW) Urine Appearance CLEAR (CLEAR) Urine pH 7.0 (5-6) Ur Specific [place] 1.005 (1.005-1.025) Urine Protein NEGATIVE (Negative) Urine Ketones NEGATIVE (NEGATIVE) Urine Blood NEGATIVE (0-5) [place] Urine Nitrite NEGATIVE (NEGATIVE) Urine Bilirubin NEGATIVE (NEGATIVE) Urine Urobilinogen NEGATIVE (0-1) mg/dL Ur Leukocyte Esterase NEGATIVE (NEGATIVE) Urine WBC (Auto) NONE (0-5) /HPF Urine RBC (Auto) NONE (0-2) /HPF U Epithel Cells (Auto) NONE (FEW) /HPF Urine Bacteria (Auto) NONE SEEN (NEGATIVE) /HPF Urine Culture Reflexed NO (NO) Urine Glucose NEGATIVE (NEGATIVE) mg/dL 09/01/20 09/01/20 Range/Units 15:18 15:18 WBC 5.2 (4.0-10.5) K/mm3 RBC 4.00 L (4.1-5.4) M/mm3 Hgb 12.0 (12.0-16.0) gm/dl Hct 36.6 (35-47) % MCV 91.5 (78-100) fl MCH 30.0 (26-32) pg MCHC 32.8 (32-36) g/dl RDW 13.0 (11.5-14.0) % Plt Count 437 (150-450) K/mm3 MPV 9.9 (7.5-11.0) fl Gran % 35.8 L (36.0-66.0) % Eos # (Auto) 0.17 (0-0.5) Absolute Lymphs (auto) 2.37 (1.0-4.6) Absolute Monos (auto) 0.74 (0.0-1.3) Lymphocytes % 45.8 H (24.0-44.0) % Monocytes % 14.3 H (0.0-12.0) % Eosinophils % 3.3 (0.00-5.0) % Basophils % 0.8 (0.0-0.4) % Absolute Granulocytes 1.85 (1.4-6.9) Basophils # 0.04 (0-0.4) PT (9.4-12.5) SECONDS INR (0.8-3.0) Sodium 132 L (137-145) mmol/L Potassium 4.1 (3.5-5.1) mmol/L Chloride 98 (98-107) mmol/L Carbon Dioxide 25 (22-30) mmol/L Anion Gap 13.9 (5-15) MEQ/L BUN 7 (7-17) mg/dL Creatinine 0.59 (0.52-1.04) mg/dL Estimated GFR > 60.0 ML/MIN Glucose 88 (74-106) mg/dL Calcium 9.3 (8.4-10.2) mg/dL Magnesium 1.9 (1.6-2.3) mg/dL Total Bilirubin 0.40 (0.2-1.3) mg/dL AST 42 H (14-36) U/L ALT 28 (0-35) U/L Alkaline Phosphatase 68 (38-126) U/L Troponin I (0.000-0.034) ng/mL NT-Pro-B Natriuret Pep 254 (0-900) pg/mL Serum Total Protein 7.0 (6.3-8.2) g/dL Albumin 4.4 (3.5-5.0) g/dL Urine Color (YELLOW) Urine Appearance (CLEAR) Urine pH (5-6) Ur Specific [place] (1.005-1.025) Urine Protein (Negative) Urine Ketones (NEGATIVE) Urine Blood (0-5) [place] Urine Nitrite (NEGATIVE) Urine Bilirubin (NEGATIVE) Urine Urobilinogen (0-1) mg/dL Ur Leukocyte Esterase (NEGATIVE) Urine WBC (Auto) (0-5) /HPF Urine RBC (Auto) (0-2) /HPF U Epithel Cells (Auto) (FEW) /HPF Urine Bacteria (Auto) (NEGATIVE) /HPF Urine Culture Reflexed (NO) Urine Glucose (NEGATIVE) mg/dL - Progress Progress: improved, re-examined Progress Note: 09/01/20 17:01 CAT scan of the head without contrast shows no acute intracranial abnormality. Medical decision making: This patient has hypertensive urgency. She has taken her medications this morning. However she is still having elevated blood pressure despite her morning medication and intervention with intravenous enalapril and metoprolol here in the emergency department. Her blood pressure has improved but I believe the patient will benefit from and requires further monitoring and intervention in the hospital. I spoke with Dr. Farfan, her primary care physician. He agrees. We will place her in observation. We will provide her with clonidine 0.1 mg orally now. He would like hydralazine intravenously with appropriate parameters while on it telemetry bed overnight. I discussed this with the patient and she agrees to be placed in the hospital under observation status. Discussed with : Tigist Counseled pt/family regarding: lab results, diagnosis, need for follow-up, rad results - Departure Departure Disposition: Home Clinical Impression: Hypertensive urgency Condition: Fair Critical Care Time: Yes Critical Care Time(excluding separately billable procedures): Critical 30-74 mins Referrals: CHILO FARFAN MD [Primary Care Provider] -
[2020-09-01] MEDS ORDERED: VASOTEC I.V. 2.5 MG IV ONE ×2 (15:28→15:32)
[2020-09-01 15:42] LABS: Absolute Neutrophil Ct (ANC) 1.85 (1.4-6.9); BASOPHIL % 0.8 % (0.0-0.4); Basophil (Absolute #) 0.04 (0-0.4); Eosinophil % 3.3 % (0.00-5.0); Eosinophil (Absolute #) 0.17 (0-0.5); Hematocrit 36.6 % (35-47); Lymphocyte (Absolute #) 2.37 (1.0-4.6); Lymphocytes % 45.8 % (24.0-44.0); Mean Cell Volume 91.5 fl (78-100); Mean Corpuscular Hgb Concent. 32.8 g/dl (32-36); Mean Platelet Volume 9.9 fl (7.5-11.0); Monocyte (Absolute #) 0.74 (0.0-1.3); Monocytes % 14.3 % (0.0-12.0); Neutrophil % 35.8 % (36.0-66.0); Platelet Count 437 K/mm3 (150-450); White Blood Count 5.2 K/mm3 (4.0-10.5)
--- NOTE | 2020-09-01 15:58 | XRAY ---
Indication: Headache. Elevated blood pressure. Multiple contiguous axial images obtained through the head without contrast. Comparison: February 20, 2018. Normal appearing brain parenchyma, ventricles, and bony calvarium for patient's age. Visualized paranasal sinuses and mastoid air cells are clear. Impression: Continued normal CT head without contrast exam.
[2020-09-01 16:02] LABS: ALBUMIN 4.4 g/dL (3.5-5.0); ALKALINE PHOSPHATASE 68 U/L (38-126); ANION GAP 13.9 MEQ/L (5-15); BLOOD UREA NITROGEN 7 mg/dL (7-17); CHLORIDE 98 mmol/L (98-107); Calcium 9.3 mg/dL (8.4-10.2); Carbon Dioxide 25 mmol/L (22-30); Creatinine 1 0.59 mg/dL (0.52-1.04); EST GLOMERULAR FILTRATION RATE > 60.0 ML/MIN; Glucose 88 mg/dL (74-106); MAGNESIUM 1.9 mg/dL (1.6-2.3); NT PRO BNP 254 pg/mL (0-900); Potassium 4.1 mmol/L (3.5-5.1); SGOT/AST 42 U/L (14-36); SGPT/ALT 28 U/L (0-35); SODIUM 132 mmol/L (137-145)
[2020-09-01] MEDS ORDERED: LOPRESSOR 5 MG/5 ML INJECTION IV ONE ×2 (16:11→16:13)
[2020-09-01] MEDS ORDERED: Zofran 4 MG/2 ML VIAL IV ONE (16:11)
[2020-09-01] MEDS ORDERED: MORPHINE SULFATE 4 MG INJ IV ONE (16:11)
[2020-09-01] MEDS ORDERED: MORPHINE SULFATE 4 MG INJ ONE (16:13)
[2020-09-01] MEDS ORDERED: Zofran 4 MG/2 ML VIAL ONE (16:13)
[2020-09-01 16:30] LABS: INR 0.91 (0.8-3.0); PROTIME 10.7 SECONDS (9.4-12.5)
[2020-09-01 16:32] LABS: Appearance CLEAR (CLEAR); Bilirubin NEGATIVE (NEGATIVE); Blood NEGATIVE Ery/ul (0-5); Glucose NEGATIVE (NEGATIVE); Ketones NEGATIVE (NEGATIVE); Leukocyte Esterase NEGATIVE (NEGATIVE); Nitrite NEGATIVE (NEGATIVE); Protein,Urine Dip NEGATIVE (Negative); Specific Gravity 1.005 (1.005-1.025); Urobilinogen NEGATIVE mg/dL (0-1)
[2020-09-01 16:35] LABS: Bacteria NONE SEEN /HPF (NEGATIVE)
[2020-09-01] MEDS ORDERED: Catapres 0.1 MG PO ONE (17:00)
[2020-09-01] MEDS ORDERED: Catapres 0.1 MG ONE (17:03)
[2020-09-01] MEDS ORDERED: Zofran 4 MG/2 ML VIAL IV PRN (19:50)
[2020-09-01] MEDS ORDERED: APRESOLINE 20 MG/ML INJ IV PRN (19:50)
[2020-09-01] MEDS ORDERED: TYLENOL 325 MG PO PRN (19:50)
[2020-09-01] MEDS ORDERED: Sodium Chloride 0.9% 1000 ML 1,000 ML IV SCH (19:50)
[2020-09-01] MEDS ORDERED: MORPHINE SULFATE 4 MG INJ IV PRN (19:50)
[2020-09-01] MEDS ORDERED: NORCO 5/325 MG ONE (21:19)
[2020-09-01] MEDS ORDERED: ECOTRIN 81 MG PO ONE (21:20)
[2020-09-01] MEDS ORDERED: ZOCOR 20MG ONE (21:20)
[2020-09-01] MEDS ORDERED: PLAVIX 75 MG Tablet PO SCH (22:00)
[2020-09-01] MEDS ORDERED: BABY ASPIRIN 81 MG CHEW PO SCH (22:00)
[2020-09-01] MEDS ORDERED: Lopressor 25MG Tab PO SCH (22:00)
[2020-09-01] MEDS ORDERED: ZOCOR 20MG PO SCH (22:00)
[2020-09-01] MEDS ORDERED: Zestril 5 MG PO SCH (22:00)
[2020-09-01] MEDS ORDERED: Ambien 10 MG PO SCH (22:00)
[2020-09-01] MEDS ORDERED: NORCO 5/325 MG PO SCH (22:00)
[2020-09-01] MEDS: Neurontin 400 MG PO SCH (22:59)
[2020-09-02] MEDS ORDERED: NORCO 5/325 MG PO PRN (03:20)
[2020-09-02 06:09] LABS: Absolute Neutrophil Ct (ANC) 1.66 (1.4-6.9); BASOPHIL % 0.9 % (0.0-0.4); Basophil (Absolute #) 0.04 (0-0.4); Eosinophil % 5.4 % (0.00-5.0); Eosinophil (Absolute #) 0.25 (0-0.5); Hematocrit 32.8 % (35-47); Hemoglobin 10.6 gm/dl (12.0-16.0); Lymphocytes % 43.2 % (24.0-44.0); Mean Cell Volume 92.7 fl (78-100); Mean Corpuscular Hemoglobin 29.9 pg (26-32); Mean Corpuscular Hgb Concent. 32.3 g/dl (32-36); Mean Platelet Volume 9.7 fl (7.5-11.0); Monocyte (Absolute #) 0.68 (0.0-1.3); Monocytes % 14.7 % (0.0-12.0); Neutrophil % 35.8 % (36.0-66.0); Platelet Count 383 K/mm3 (150-450); Red Blood Count 3.54 M/mm3 (4.1-5.4); White Blood Count 4.6 K/mm3 (4.0-10.5)
[2020-09-02 07:14] LABS: ANION GAP 10.5 MEQ/L (5-15); BLOOD UREA NITROGEN 10 mg/dL (7-17); CHLORIDE 101 mmol/L (98-107); Calcium 8.8 mg/dL (8.4-10.2); Carbon Dioxide 26 mmol/L (22-30); Creatinine 1 0.66 mg/dL (0.52-1.04); EST GLOMERULAR FILTRATION RATE > 60.0 ML/MIN; Glucose 82 mg/dL (74-106); Potassium 3.9 mmol/L (3.5-5.1); SODIUM 134 mmol/L (137-145)
[2020-09-02 07:45] VITALS: O2SAT 98
[2020-09-02] MEDS: Neurontin 400 MG PO SCH (09:49)
[2020-09-02] MEDS ORDERED: Catapres 0.1 MG PO ONE (12:09)
--- NOTE | 2020-09-02 12:14 | PCM.SSS ---
History of Present Illness - Chief Complaint Chief Complaint: Hypertensive urgency History of Present Illness: is a 70 year old female who presented to ER with headache and elevated bp, found to have hypertensive urgency, resolved quickly after admission and received clonidine in ER po, she has been on higher dose of lisinopril in the past and caused fatigue, has episodic elevations of bp with headache, no chest pain, no shortness of breath or syncope. - Review of Systems Constitutional: No Fever, No Chills Cardiac: No Chest Pain, No Palpitations Abdominal/Gastrointestinal: No Abdominal Pain, No Nausea, No Vomiting, No Diarrhea Neurological: Headache, No Dizziness, No Focal Weakness, No Parasthesia Psychological: No Symptoms All Other Systems: Reviewed and Negative Medications & Allergies Home Medications: Home Medication List Gabapentin [Neurontin] 800 mg PO QID 07/28/14 [History Confirmed 09/01/20] Aspirin [Aspir-Low] 81 mg PO DAILY 03/28/16 [History Confirmed 09/01/20] Atorvastatin Calcium [Lipitor] 20 mg PO WEEKLY 03/28/16 [History Confirmed 09/02/20] Clopidogrel Bisulfate 75 mg [PLAVIX 75 MG Tablet] 75 mg PO HS 03/28/16 [History Confirmed 09/01/20] lisinopriL [Lisinopril] 2.5 mg PO HS 03/28/16 [History Confirmed 09/01/20] Hydrocodone Bit/Acetaminophen [[place] 5-325 Tablet] 1 each PO TID PRN 07/10/17 [History Confirmed 09/01/20] Zolpidem Tartrate 10 mg [Ambien 10 MG] 10 mg PO QHS 07/12/18 [History Confirmed 09/01/20] Metoprolol Tartrate 25 mg [Lopressor 25MG Tab] 25 mg PO HS 04/15/20 [History Confirmed 09/01/20] Clonidine HCl 0.1 mg [Catapres 0.1 MG] 0.1 mg PO BID #60 tablet 09/02/20 [Rx] Allergies/Adverse Reactions: Allergies Allergy/AdvReac Type Severity Reaction Status Date / Time iodine Allergy Verified 09/01/20 15:17 penicillin G Allergy Verified 09/01/20 15:17 codeine AdvReac Intermediate Vomiting Verified 09/01/20 15:17 - Past Medical History Past Medical History: Yes Neurological History: TIA ENT History: No Pertinent History Cardiac History: High Cholesterol, Hypertension, Myocardial Infarction ([place]) Respiratory History: No Pertinent History Endocrine Medical History: Liver Disease Musculoskelatal History: Arthritis, Osteoporosis GI Medical History: No Pertinent History History: No Pertinent History Pyscho-Social History: No Pertinent History Reproductive Disorders: No Pertinent History Comment: 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, neck and face - Female History Are you now?: No - Past Surgical History Past Surgical History: Yes Neuro Surgical History: No Pertinent History Cardiac History: Cardiac Catheterization, Cardiac Stent Respiratory Surgery: No Pertinent History GI Surgical History: No Pertinent History Genitourinary Surgical Hx: No Pertinent History Musculskeletal Surgical Hx: Orthopedic Surgery Female Surgical History: Section, Hysterectomy Other Surgical History: NECK - Social History Smoking Status: Never smoker Exposure to second hand smoke: No Alcohol: None Drug Use: none Significant Family History: heart disease, hypertension - Physical Exam Vital Signs: Vital Signs - 24 hr Temp Pulse Resp BP BP Pulse Ox 09/02/20 07:16 98.0 F 63 20 128/58 98 09/02/20 04:00 97.9 F 62 18 104/55 96 09/02/20 00:00 97.9 F 78 19 118/65 98 09/01/20 20:03 97.6 F 63 18 122/94 95 09/01/20 19:50 95 09/01/20 19:46 60 16 140/75 99 09/01/20 19:00 60 16 138/73 99 09/01/20 18:02 64 16 175/83 99 09/01/20 17:10 66 18 193/97 99 09/01/20 17:04 98 09/01/20 16:05 74 16 212/95 99 09/01/20 15:56 74 16 213/108 99 09/01/20 15:31 99 09/01/20 15:10 98.5 F 73 20 210/113 98 General Appearance: no apparent distress, alert Neurologic Exam: alert, oriented x 3, cooperative, normal mood/affect, nml cerebellar function, nml station & gait, sensation nml, No motor deficits Respiratory Exam: normal breath sounds, lungs clear, No respiratory distress Cardiovascular Exam: regular rate/rhythm, normal heart sounds, normal peripheral pulses Gastrointestinal/Abdomen Exam: soft, normal bowel sounds, No tenderness, No mass Extremity Exam: normal inspection, normal range of motion, pelvis stable Skin Exam: normal color, warm, dry, No rash Results - Labs Lab/Micro Results: Lab Results-Last 24 Hours 09/01/20 09/01/20 09/01/20 Range/Units 15:18 15:18 15:18 WBC 5.2 (4.0-10.5) K/mm3 RBC 4.00 L (4.1-5.4) M/mm3 Hgb 12.0 (12.0-16.0) gm/dl Hct 36.6 (35-47) % MCV 91.5 (78-100) fl MCH 30.0 (26-32) pg MCHC 32.8 (32-36) g/dl RDW 13.0 (11.5-14.0) % Plt Count 437 (150-450) K/mm3 MPV 9.9 (7.5-11.0) fl Gran % 35.8 L (36.0-66.0) % Eos # (Auto) 0.17 (0-0.5) Absolute Lymphs (auto) 2.37 (1.0-4.6) Absolute Monos (auto) 0.74 (0.0-1.3) Lymphocytes % 45.8 H (24.0-44.0) % Monocytes % 14.3 H (0.0-12.0) % Eosinophils % 3.3 (0.00-5.0) % Basophils % 0.8 (0.0-0.4) % Absolute Granulocytes 1.85 (1.4-6.9) Basophils # 0.04 (0-0.4) PT (9.4-12.5) SECONDS INR (0.8-3.0) Sodium 132 L (137-145) mmol/L Potassium 4.1 (3.5-5.1) mmol/L Chloride 98 (98-107) mmol/L Carbon Dioxide 25 (22-30) mmol/L Anion Gap 13.9 (5-15) MEQ/L BUN 7 (7-17) mg/dL Creatinine 0.59 (0.52-1.04) mg/dL Estimated GFR > 60.0 ML/MIN Glucose 88 (74-106) mg/dL Calcium 9.3 (8.4-10.2) mg/dL Magnesium 1.9 (1.6-2.3) mg/dL Total Bilirubin 0.40 (0.2-1.3) mg/dL AST 42 H (14-36) U/L ALT 28 (0-35) U/L Alkaline Phosphatase 68 (38-126) U/L Troponin I < 0.012 (0.000-0.034) ng/mL NT-Pro-B Natriuret Pep 254 (0-900) pg/mL Serum Total Protein 7.0 (6.3-8.2) g/dL Albumin 4.4 (3.5-5.0) g/dL Urine Color (YELLOW) Urine Appearance (CLEAR) Urine pH (5-6) Ur Specific [place] (1.005-1.025) Urine Protein (Negative) Urine Ketones (NEGATIVE) Urine Blood (0-5) [place] Urine Nitrite (NEGATIVE) Urine Bilirubin (NEGATIVE) Urine Urobilinogen (0-1) mg/dL Ur Leukocyte Esterase (NEGATIVE) Urine WBC (Auto) (0-5) /HPF Urine RBC (Auto) (0-2) /HPF U Epithel Cells (Auto) (FEW) /HPF Urine Bacteria (Auto) (NEGATIVE) /HPF Urine Culture Reflexed (NO) Urine Glucose (NEGATIVE) mg/dL SARS-CoV-2 (PCR) (NEGATIVE) 09/01/20 09/01/20 09/01/20 Range/Units 16:13 16:20 17:30 WBC (4.0-10.5) K/mm3 RBC (4.1-5.4) M/mm3 Hgb (12.0-16.0) gm/dl Hct (35-47) % MCV (78-100) fl MCH (26-32) pg MCHC (32-36) g/dl RDW (11.5-14.0) % Plt Count (150-450) K/mm3 MPV (7.5-11.0) fl Gran % (36.0-66.0) % Eos # (Auto) (0-0.5) Absolute Lymphs (auto) (1.0-4.6) Absolute Monos (auto) (0.0-1.3) Lymphocytes % (24.0-44.0) % Monocytes % (0.0-12.0) % Eosinophils % (0.00-5.0) % Basophils % (0.0-0.4) % Absolute Granulocytes (1.4-6.9) Basophils # (0-0.4) PT 10.7 (9.4-12.5) SECONDS INR 0.91 (0.8-3.0) Sodium (137-145) mmol/L Potassium (3.5-5.1) mmol/L Chloride (98-107) mmol/L Carbon Dioxide (22-30) mmol/L Anion Gap (5-15) MEQ/L BUN (7-17) mg/dL Creatinine (0.52-1.04) mg/dL Estimated GFR ML/MIN Glucose (74-106) mg/dL Calcium (8.4-10.2) mg/dL Magnesium (1.6-2.3) mg/dL Total Bilirubin (0.2-1.3) mg/dL AST (14-36) U/L ALT (0-35) U/L Alkaline Phosphatase (38-126) U/L Troponin I (0.000-0.034) ng/mL NT-Pro-B Natriuret Pep (0-900) pg/mL Serum Total Protein (6.3-8.2) g/dL Albumin (3.5-5.0) g/dL Urine Color STRAW (YELLOW) Urine Appearance CLEAR (CLEAR) Urine pH 7.0 (5-6) Ur Specific [place] 1.005 (1.005-1.025) Urine Protein NEGATIVE (Negative) Urine Ketones NEGATIVE (NEGATIVE) Urine Blood NEGATIVE (0-5) [place] Urine Nitrite NEGATIVE (NEGATIVE) Urine Bilirubin NEGATIVE (NEGATIVE) Urine Urobilinogen NEGATIVE (0-1) mg/dL Ur Leukocyte Esterase NEGATIVE (NEGATIVE) Urine WBC (Auto) NONE (0-5) /HPF Urine RBC (Auto) NONE (0-2) /HPF U Epithel Cells (Auto) NONE (FEW) /HPF Urine Bacteria (Auto) NONE SEEN (NEGATIVE) /HPF Urine Culture Reflexed NO (NO) Urine Glucose NEGATIVE (NEGATIVE) mg/dL SARS-CoV-2 (PCR) NEGATIVE (NEGATIVE) 09/01/20 09/02/20 09/02/20 Range/Units 18:27 04:58 04:58 WBC 4.6 (4.0-10.5) K/mm3 RBC 3.54 L (4.1-5.4) M/mm3 Hgb 10.6 L (12.0-16.0) gm/dl Hct 32.8 L (35-47) % MCV 92.7 (78-100) fl MCH 29.9 (26-32) pg MCHC 32.3 (32-36) g/dl RDW 13.0 (11.5-14.0) % Plt Count 383 (150-450) K/mm3 MPV 9.7 (7.5-11.0) fl Gran % 35.8 L (36.0-66.0) % Eos # (Auto) 0.25 (0-0.5) Absolute Lymphs (auto) 2.00 (1.0-4.6) Absolute Monos (auto) 0.68 (0.0-1.3) Lymphocytes % 43.2 (24.0-44.0) % Monocytes % 14.7 H (0.0-12.0) % Eosinophils % 5.4 H (0.00-5.0) % Basophils % 0.9 (0.0-0.4) % Absolute Granulocytes 1.66 (1.4-6.9) Basophils # 0.04 (0-0.4) PT (9.4-12.5) SECONDS INR (0.8-3.0) Sodium 134 L (137-145) mmol/L Potassium 3.9 (3.5-5.1) mmol/L Chloride 101 (98-107) mmol/L Carbon Dioxide 26 (22-30) mmol/L Anion Gap 10.5 (5-15) MEQ/L BUN 10 (7-17) mg/dL Creatinine 0.66 (0.52-1.04) mg/dL Estimated GFR > 60.0 ML/MIN Glucose 82 (74-106) mg/dL Calcium 8.8 (8.4-10.2) mg/dL Magnesium (1.6-2.3) mg/dL Total Bilirubin (0.2-1.3) mg/dL AST (14-36) U/L ALT (0-35) U/L Alkaline Phosphatase (38-126) U/L Troponin I < 0.012 (0.000-0.034) ng/mL NT-Pro-B Natriuret Pep (0-900) pg/mL Serum Total Protein (6.3-8.2) g/dL Albumin (3.5-5.0) g/dL Urine Color (YELLOW) Urine Appearance (CLEAR) Urine pH (5-6) Ur Specific [place] (1.005-1.025) Urine Protein (Negative) Urine Ketones (NEGATIVE) Urine Blood (0-5) [place] Urine Nitrite (NEGATIVE) Urine Bilirubin (NEGATIVE) Urine Urobilinogen (0-1) mg/dL Ur Leukocyte Esterase (NEGATIVE) Urine WBC (Auto) (0-5) /HPF Urine RBC (Auto) (0-2) /HPF U Epithel Cells (Auto) (FEW) /HPF Urine Bacteria (Auto) (NEGATIVE) /HPF Urine Culture Reflexed (NO) Urine Glucose (NEGATIVE) mg/dL SARS-CoV-2 (PCR) (NEGATIVE) - Radiology Impressions Radiology Exams & Impressions: Radiology Procedures Category Date Time Status HEAD WITHOUT CONTRAST [CT] Stat Exams 09/01/20 15:30 Completed Assessment/Plan (1) Hypertensive urgency Current Visit: Yes Status: Acute Code(s): I16.0 - HYPERTENSIVE URGENCY Hospital Summary - Vitals & Intake/Output Vital Signs: Vital Signs Temperature 98.0 F 09/02/20 07:16 Pulse Rate 63 09/02/20 07:16 Respiratory Rate 20 09/02/20 07:16 Blood Pressure 128/58 09/02/20 07:16 O2 Sat by Pulse Oximetry 98 09/02/20 07:16 Intake & Output: Intake & Output 08/31/20 09/01/20 09/02/20 09/03/20 11:59 11:59 11:59 11:59 Intake Total 921 Output Total 300 400 Balance 621 -400 Weight 40.4 kg - Lab Result Diagrams: 09/02/20 04:58 09/02/20 04:58 Lab Results-Last 24 Hrs: Lab Results-Last 24 Hours 09/01/20 09/01/20 09/01/20 Range/Units 15:18 15:18 15:18 WBC 5.2 (4.0-10.5) K/mm3 RBC 4.00 L (4.1-5.4) M/mm3 Hgb 12.0 (12.0-16.0) gm/dl Hct 36.6 (35-47) % MCV 91.5 (78-100) fl MCH 30.0 (26-32) pg MCHC 32.8 (32-36) g/dl RDW 13.0 (11.5-14.0) % Plt Count 437 (150-450) K/mm3 MPV 9.9 (7.5-11.0) fl Gran % 35.8 L (36.0-66.0) % Eos # (Auto) 0.17 (0-0.5) Absolute Lymphs (auto) 2.37 (1.0-4.6) Absolute Monos (auto) 0.74 (0.0-1.3) Lymphocytes % 45.8 H (24.0-44.0) % Monocytes % 14.3 H (0.0-12.0) % Eosinophils % 3.3 (0.00-5.0) % Basophils % 0.8 (0.0-0.4) % Absolute Granulocytes 1.85 (1.4-6.9) Basophils # 0.04 (0-0.4) PT (9.4-12.5) SECONDS INR (0.8-3.0) Sodium 132 L (137-145) mmol/L Potassium 4.1 (3.5-5.1) mmol/L Chloride 98 (98-107) mmol/L Carbon Dioxide 25 (22-30) mmol/L Anion Gap 13.9 (5-15) MEQ/L BUN 7 (7-17) mg/dL Creatinine 0.59 (0.52-1.04) mg/dL Estimated GFR > 60.0 ML/MIN Glucose 88 (74-106) mg/dL Calcium 9.3 (8.4-10.2) mg/dL Magnesium 1.9 (1.6-2.3) mg/dL Total Bilirubin 0.40 (0.2-1.3) mg/dL AST 42 H (14-36) U/L ALT 28 (0-35) U/L Alkaline Phosphatase 68 (38-126) U/L Troponin I < 0.012 (0.000-0.034) ng/mL NT-Pro-B Natriuret Pep 254 (0-900) pg/mL Serum Total Protein 7.0 (6.3-8.2) g/dL Albumin 4.4 (3.5-5.0) g/dL Urine Color (YELLOW) Urine Appearance (CLEAR) Urine pH (5-6) Ur Specific [place] (1.005-1.025) Urine Protein (Negative) Urine Ketones (NEGATIVE) Urine Blood (0-5) [place] Urine Nitrite (NEGATIVE) Urine Bilirubin (NEGATIVE) Urine Urobilinogen (0-1) mg/dL Ur Leukocyte Esterase (NEGATIVE) Urine WBC (Auto) (0-5) /HPF Urine RBC (Auto) (0-2) /HPF U Epithel Cells (Auto) (FEW) /HPF Urine Bacteria (Auto) (NEGATIVE) /HPF Urine Culture Reflexed (NO) Urine Glucose (NEGATIVE) mg/dL SARS-CoV-2 (PCR) (NEGATIVE) 09/01/20 09/01/20 09/01/20 Range/Units 16:13 16:20 17:30 WBC (4.0-10.5) K/mm3 RBC (4.1-5.4) M/mm3 Hgb (12.0-16.0) gm/dl Hct (35-47) % MCV (78-100) fl MCH (26-32) pg MCHC (32-36) g/dl RDW (11.5-14.0) % Plt Count (150-450) K/mm3 MPV (7.5-11.0) fl Gran % (36.0-66.0) % Eos # (Auto) (0-0.5) Absolute Lymphs (auto) (1.0-4.6) Absolute Monos (auto) (0.0-1.3) Lymphocytes % (24.0-44.0) % Monocytes % (0.0-12.0) % Eosinophils % (0.00-5.0) % Basophils % (0.0-0.4) % Absolute Granulocytes (1.4-6.9) Basophils # (0-0.4) PT 10.7 (9.4-12.5) SECONDS INR 0.91 (0.8-3.0) Sodium (137-145) mmol/L Potassium (3.5-5.1) mmol/L Chloride (98-107) mmol/L Carbon Dioxide (22-30) mmol/L Anion Gap (5-15) MEQ/L BUN (7-17) mg/dL Creatinine (0.52-1.04) mg/dL Estimated GFR ML/MIN Glucose (74-106) mg/dL Calcium (8.4-10.2) mg/dL Magnesium (1.6-2.3) mg/dL Total Bilirubin (0.2-1.3) mg/dL AST (14-36) U/L ALT (0-35) U/L Alkaline Phosphatase (38-126) U/L Troponin I (0.000-0.034) ng/mL NT-Pro-B Natriuret Pep (0-900) pg/mL Serum Total Protein (6.3-8.2) g/dL Albumin (3.5-5.0) g/dL Urine Color STRAW (YELLOW) Urine Appearance CLEAR (CLEAR) Urine pH 7.0 (5-6) Ur Specific [place] 1.005 (1.005-1.025) Urine Protein NEGATIVE (Negative) Urine Ketones NEGATIVE (NEGATIVE) Urine Blood NEGATIVE (0-5) [place] Urine Nitrite NEGATIVE (NEGATIVE) Urine Bilirubin NEGATIVE (NEGATIVE) Urine Urobilinogen NEGATIVE (0-1) mg/dL Ur Leukocyte Esterase NEGATIVE (NEGATIVE) Urine WBC (Auto) NONE (0-5) /HPF Urine RBC (Auto) NONE (0-2) /HPF U Epithel Cells (Auto) NONE (FEW) /HPF Urine Bacteria (Auto) NONE SEEN (NEGATIVE) /HPF Urine Culture Reflexed NO (NO) Urine Glucose NEGATIVE (NEGATIVE) mg/dL SARS-CoV-2 (PCR) NEGATIVE (NEGATIVE) 09/01/20 09/02/20 09/02/20 Range/Units 18:27 04:58 04:58 WBC 4.6 (4.0-10.5) K/mm3 RBC 3.54 L (4.1-5.4) M/mm3 Hgb 10.6 L (12.0-16.0) gm/dl Hct 32.8 L (35-47) % MCV 92.7 (78-100) fl MCH 29.9 (26-32) pg MCHC 32.3 (32-36) g/dl RDW 13.0 (11.5-14.0) % Plt Count 383 (150-450) K/mm3 MPV 9.7 (7.5-11.0) fl Gran % 35.8 L (36.0-66.0) % Eos # (Auto) 0.25 (0-0.5) Absolute Lymphs (auto) 2.00 (1.0-4.6) Absolute Monos (auto) 0.68 (0.0-1.3) Lymphocytes % 43.2 (24.0-44.0) % Monocytes % 14.7 H (0.0-12.0) % Eosinophils % 5.4 H (0.00-5.0) % Basophils % 0.9 (0.0-0.4) % Absolute Granulocytes 1.66 (1.4-6.9) Basophils # 0.04 (0-0.4) PT (9.4-12.5) SECONDS INR (0.8-3.0) Sodium 134 L (137-145) mmol/L Potassium 3.9 (3.5-5.1) mmol/L Chloride 101 (98-107) mmol/L Carbon Dioxide 26 (22-30) mmol/L Anion Gap 10.5 (5-15) MEQ/L BUN 10 (7-17) mg/dL Creatinine 0.66 (0.52-1.04) mg/dL Estimated GFR > 60.0 ML/MIN Glucose 82 (74-106) mg/dL Calcium 8.8 (8.4-10.2) mg/dL Magnesium (1.6-2.3) mg/dL Total Bilirubin (0.2-1.3) mg/dL AST (14-36) U/L ALT (0-35) U/L Alkaline Phosphatase (38-126) U/L Troponin I < 0.012 (0.000-0.034) ng/mL NT-Pro-B Natriuret Pep (0-900) pg/mL Serum Total Protein (6.3-8.2) g/dL Albumin (3.5-5.0) g/dL Urine Color (YELLOW) Urine Appearance (CLEAR) Urine pH (5-6) Ur Specific [place] (1.005-1.025) Urine Protein (Negative) Urine Ketones (NEGATIVE) Urine Blood (0-5) [place] Urine Nitrite (NEGATIVE) Urine Bilirubin (NEGATIVE) Urine Urobilinogen (0-1) mg/dL Ur Leukocyte Esterase (NEGATIVE) Urine WBC (Auto) (0-5) /HPF Urine RBC (Auto) (0-2) /HPF U Epithel Cells (Auto) (FEW) /HPF Urine Bacteria (Auto) (NEGATIVE) /HPF Urine Culture Reflexed (NO) Urine Glucose (NEGATIVE) mg/dL SARS-CoV-2 (PCR) (NEGATIVE) - Radiology Exams Ordered Rad Exams-Entire Visit: Radiology Procedures Category Date Time Status HEAD WITHOUT CONTRAST [CT] Stat Exams 09/01/20 15:30 Completed - Discharge Disposition: Home, Self-Care Condition: Good Prescriptions: New Clonidine HCl 0.1 mg [Catapres 0.1 MG] 0.1 mg PO BID #60 tablet Continue Gabapentin [Neurontin] 800 mg PO QID Clopidogrel Bisulfate 75 mg [PLAVIX 75 MG Tablet] 75 mg PO HS Aspirin [Aspir-Low] 81 mg PO DAILY lisinopriL [Lisinopril] 2.5 mg PO HS Atorvastatin Calcium [Lipitor] 20 mg PO WEEKLY Hydrocodone Bit/Acetaminophen [[place] 5-325 Tablet] 1 each PO TID PRN PRN Reason: Pain Zolpidem Tartrate 10 mg [Ambien 10 MG] 10 mg PO QHS Metoprolol Tartrate 25 mg [Lopressor 25MG Tab] 25 mg PO HS Follow up with: CHILO FARFAN MD [Primary Care Provider] - 09/11/20 1:30 pm
[2020-09-02 13:40] VITALS: BP 160/67; PULSE 66
[2020-09-02] MEDS ORDERED: ZOCOR 20MG PO SCH (22:00)
[2020-09-02] MEDS ORDERED: ECOTRIN 81 MG PO SCH (22:00)
== END 2020-09-02 12:48 | disposition home or self-care (01) ==
LOC: ED 15:02 → MED SURG 19:42
PROVIDERS: ADMIT Family Medicine; ATTEND Family Medicine
DX: I16.0 Hypertensive urgency (principal); R51.9 Headache, unspecified; Z79.899 Other long term (current) drug therapy; Z79.01 Long term (current) use of anticoagulants; Z20.828 Contact with and (suspected) exposure to other viral communicable diseases; E78.00 Pure hypercholesterolemia, unspecified; Z86.73 Personal history of transient ischemic attack (TIA), and cerebral infarction without residual deficits
CPT/HCPCS: 36000; 36415; 70450; 80048; 80053; 81001; 83735; 83880; 84484; 85025; 85610; 93005; 93041; 93268; 94760; 96374; 96375; 99285; 99291; G0378; U0003; J2270; J2405; A9270-GY

== ENCOUNTER 2020-09-07 21:24 | Observation (INO) | payer MEDICARE ==
[2020-09-07] MEDS ORDERED: BABY ASPIRIN 81 MG CHEW PO ONE (21:54)
[2020-09-07] MEDS ORDERED: MORPHINE SULFATE 4 MG INJ IV ONE (21:54)
[2020-09-07] MEDS ORDERED: Sodium Chloride 0.9% 1000 ML 1,000 ML IV SCH (22:00)
[2020-09-07] MEDS ORDERED: Sodium Chloride 0.9% 1000 ML 1,000 ML ONE (22:00)
--- NOTE | 2020-09-07 22:09 | ERPHSYRPT ---
- History of Present Illness Time Seen by Provider: 09/07/20 21:40 Historian: patient Exam Limitations: no limitations Patient Subjective Stated Complaint: pt c/o midsternal chest pain, nonradiating and describes as dulla nd burning. states started a little more that 1 hour prior to coming to er Triage Nursing Assessment: pt alert and oriented, answers questions approp. pt ambulatory with steady gait noted. respirations nonlabored with lungs cta. skin warm and dry. heart rate 74 on monitor, sinus rhythm. periperhal pulses wnl Physician History: This is a 70-year-old white female who is a patient of Dr. Farfan and Dr. Godfrey (kiln puller) and the patient has a history of coronary artery disease and cardiac stents in place, elevated cholesterol and hypertension. Patient was discharged to home on 09/02/2020 for hypertension and rule out cardiac evaluation. Patient was seen by her kiln puller yesterday and amlodipine and Catapres were added to her antihypertensive regimen. They increased her metoprolol dose as well. Patient also continues to take lisinopril but did not take her lisinopril today. She takes it in the evening. Patient said that 1 hour prior to coming to the emergency room she has midsternal burning and dull aching without radiation. She denies cough. She denies fever and chills. Timing/Duration: today, hour(s) (1) Quality: aching, burning Location: substernal Chest Pain Radiation: no radiation Severity of Pain-Max: moderate Severity of Pain-Current: moderate Modifying Factors: Improves With: nothing Associated Symptoms: denies symptoms Prior Chest Pain/Cardiac Workup: recently seen/treated, recent hospitalization Nitro Today/Relief: no nitro taken today Aspirin Treatment Today: 81 mg x 1, provided at home Allergies/Adverse Reactions: iodine Allergy (Verified 09/07/20 21:36) penicillin G Allergy (Verified 09/07/20 21:36) codeine Adverse Reaction (Intermediate, Verified 09/07/20 21:36) Vomiting Home Medications: Gabapentin [Neurontin] 800 mg PO QID 07/28/14 [History] Aspirin [Aspir-Low] 81 mg PO DAILY 03/28/16 [History] Atorvastatin Calcium [Lipitor] 20 mg PO WEEKLY 03/28/16 [History] Clopidogrel Bisulfate 75 mg [PLAVIX 75 MG Tablet] 75 mg PO DAILY 03/28/16 [History] lisinopriL [Lisinopril] 2.5 mg PO HS 03/28/16 [History] Hydrocodone Bit/Acetaminophen [[place] 5-325 Tablet] 1 each PO TID PRN 07/10/17 [History] Zolpidem Tartrate 10 mg [Ambien 10 MG] 10 mg PO QHS 07/12/18 [History] Metoprolol Tartrate 25 mg [Lopressor 25MG Tab] 25 mg PO BID 04/15/20 [History] Amlodipine Besylate [Norvasc] 2.5 mg PO DAILY 09/07/20 [History] Hx Tetanus, Diphtheria Vaccination/Date Given: Yes Hx Influenza Vaccination/Date Given: Yes Hx Pneumococcal Vaccination/Date Given: Yes Immunizations Up to Date: Yes Travel Risk - International Travel Have you traveled outside of the country in past 3 weeks: No - Coronavirus Screening Are you exhibiting any of the following symptoms?: No Close contact with a COVID-19 positive Pt in past 14-21 Days: No - Vaccine Status Have you recieved a Covid-19 vaccination: No - Review of Systems Constitutional: No Symptoms Eyes: No Symptoms Ears, Nose, & Throat: No Symptoms Respiratory: No Symptoms Cardiac: Chest Pain Abdominal/Gastrointestinal: No Symptoms Genitourinary Symptoms: No Symptoms Musculoskeletal: No Symptoms Skin: No Symptoms Neurological: No Symptoms Psychological: No Symptoms Endocrine: No Symptoms Hematologic/Lymphatic: No Symptoms Immunological/Allergic: No Symptoms All Other Systems: Reviewed and Negative - Past Medical History Pertinent Past Medical History: Yes Neurological History: TIA ENT History: No Pertinent History Cardiac History: High Cholesterol, Hypertension, Myocardial Infarction ([place]) Respiratory History: No Pertinent History Endocrine Medical History: Liver Disease Musculoskeletal History: Arthritis, Osteoporosis GI Medical History: No Pertinent History History: No Pertinent History Psycho-Social History: No Pertinent History Female Reproductive Disorders: No Pertinent History 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, neck and face - Past Surgical History Past Surgical History: Yes Neuro Surgical History: No Pertinent History Cardiac: Cardiac Catheterization, Cardiac Stent Respiratory: No Pertinent History Gastrointestinal: No Pertinent History Genitourinary: No Pertinent History Musculoskeletal: Orthopedic Surgery Female Surgical History: Section, Hysterectomy Other Surgical History: NECK - Social History Smoking Status: Never smoker Exposure to second hand smoke: No Alcohol Use: None Drug Use: none Patient Lives Alone: Yes Significant Family History: heart disease, hypertension - Nursing Vital Signs Nursing Vital Signs: Initial Vital Signs Temperature 97.8 F 09/07/20 21:26 Pulse Rate 80 09/07/20 21:26 Respiratory Rate 20 09/07/20 21:26 Blood Pressure 243/110 09/07/20 21:26 O2 Sat by Pulse Oximetry 100 09/07/20 21:26 Pain Scale Pain Intensity 2 - Physical Exam General Appearance: no apparent distress, alert, anxiety Eye Exam: PERRL/EOMI, eyes nml inspection Ears, Nose, Throat Exam: normal ENT inspection, moist mucous membranes Neck Exam: normal inspection, non-tender, supple, full range of motion Respiratory Exam: normal breath sounds, chest tenderness, lungs clear, airway intact, No respiratory distress Cardiovascular Exam: regular rate/rhythm, normal heart sounds, normal peripheral pulses Gastrointestinal/Abdomen Exam: soft, normal bowel sounds, No tenderness Pelvic Exam: not done Rectal Exam: not done Back Exam: normal inspection, normal range of motion, No CVA tenderness, No vertebral tenderness Extremity Exam: normal inspection, normal range of motion, pelvis stable Neurologic Exam: alert, oriented x 3, cooperative, 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 changes when compared to EKG dated 09/01/2020) Ordered Tests: Active Orders 24 hr Category Date Time Status Drawing Hand STAT Care 09/07/20 21:55 Active EKG-ER Only STAT Care 09/07/20 21:54 Active IV Insertion STAT Care 09/07/20 21:54 Active Pulse Oximetry (ED) STAT Care 09/07/20 21:54 Active CBC W DIFF Stat Lab 09/07/20 21:50 Completed CMP Stat Lab 09/07/20 21:50 Completed D-DIMER QUANTITATIVE Stat Lab 09/07/20 22:15 Completed PROTIME WITH INR Stat Lab 09/07/20 22:15 Completed TROPONIN Q3H Lab 09/07/20 21:50 Completed TROPONIN Q3H Lab 09/08/20 01:00 Ordered TROPONIN Q3H Lab 09/08/20 04:00 Ordered TROPONIN Q3H Lab 09/08/20 07:00 Ordered TROPONIN Q3H Lab 09/08/20 10:00 Ordered Medication Summary Generic Name Dose Route Start Last Admin Trade Name Freq PRN Reason Stop Dose Admin Sodium Chloride 1,000 mls @ 50 mls/hr 09/07/20 22:00 09/07/20 22:02 Sodium Chloride 0.9% 1000 Ml IV 10/07/20 21:59 50 mls/hr .Q20H RALPH Administration Discontinued Medications Generic Name Dose Route Start Last Admin Trade Name Freq PRN Reason Stop Dose Admin Aspirin 243 mg 09/07/20 21:54 09/07/20 22:01 Baby Aspirin 81 Mg Chew PO 09/07/20 21:55 243 mg STAT ONE Administration Enalaprilat 1.25 mg 09/07/20 22:39 09/07/20 23:01 Vasotec I.V. 2.5 Mg IV 09/07/20 22:40 1.25 mg STAT ONE Administration Enalaprilat Confirm 09/07/20 22:53 Vasotec I.V. 2.5 Mg Administered 09/07/20 22:54 Dose 2.5 mg IV .STK-MED ONE Morphine Sulfate 4 mg 09/07/20 21:54 Morphine Sulfate 4 Mg Inj IV 09/07/20 21:55 STAT ONE Morphine Sulfate Confirm 09/07/20 22:53 Morphine Sulfate 4 Mg Inj Administered 09/07/20 22:54 Dose 4 mg .ROUTE .STK-MED ONE Lab/Rad Data: Laboratory Result Diagrams 09/07/20 21:50 09/07/20 21:50 Laboratory Results 09/07/20 09/07/20 09/07/20 Range/Units 22:15 21:50 21:50 WBC (4.0-10.5) K/mm3 RBC (4.1-5.4) M/mm3 Hgb (12.0-16.0) gm/dl Hct (35-47) % MCV (78-100) fl MCH (26-32) pg MCHC (32-36) g/dl RDW (11.5-14.0) % Plt Count (150-450) K/mm3 MPV (7.5-11.0) fl Gran % (36.0-66.0) % Eos # (Auto) (0-0.5) Absolute Lymphs (auto) (1.0-4.6) Absolute Monos (auto) (0.0-1.3) Lymphocytes % (24.0-44.0) % Monocytes % (0.0-12.0) % Eosinophils % (0.00-5.0) % Basophils % (0.0-0.4) % Absolute Granulocytes (1.4-6.9) Basophils # (0-0.4) PT 10.3 (9.4-12.5) SECONDS INR 0.87 (0.8-3.0) D-Dimer 696 H* (215-500) ng/mL Sodium 131 L (137-145) mmol/L Potassium 3.6 (3.5-5.1) mmol/L Chloride 95 L (98-107) mmol/L Carbon Dioxide 24 (22-30) mmol/L Anion Gap 16.0 H (5-15) MEQ/L BUN 7 (7-17) mg/dL Creatinine 0.60 (0.52-1.04) mg/dL Estimated GFR > 60.0 ML/MIN Glucose 96 (74-106) mg/dL Calcium 9.8 (8.4-10.2) mg/dL Total Bilirubin 0.30 (0.2-1.3) mg/dL AST 45 H (14-36) U/L ALT 30 (0-35) U/L Alkaline Phosphatase 80 (38-126) U/L Troponin I < 0.012 (0.000-0.034) ng/mL Serum Total Protein 7.4 (6.3-8.2) g/dL Albumin 4.7 (3.5-5.0) g/dL 09/07/20 Range/Units 21:50 WBC 6.3 (4.0-10.5) K/mm3 RBC 4.06 L (4.1-5.4) M/mm3 Hgb 12.3 (12.0-16.0) gm/dl Hct 36.5 (35-47) % MCV 89.9 (78-100) fl MCH 30.3 (26-32) pg MCHC 33.7 (32-36) g/dl RDW 12.8 (11.5-14.0) % Plt Count 429 (150-450) K/mm3 MPV 10.5 (7.5-11.0) fl Gran % 36.8 (36.0-66.0) % Eos # (Auto) 0.20 (0-0.5) Absolute Lymphs (auto) 2.84 (1.0-4.6) Absolute Monos (auto) 0.86 (0.0-1.3) Lymphocytes % 45.2 H (24.0-44.0) % Monocytes % 13.7 H (0.0-12.0) % Eosinophils % 3.2 (0.00-5.0) % Basophils % 1.1 (0.0-0.4) % Absolute Granulocytes 2.32 (1.4-6.9) Basophils # 0.07 (0-0.4) PT (9.4-12.5) SECONDS INR (0.8-3.0) D-Dimer (215-500) ng/mL Sodium (137-145) mmol/L Potassium (3.5-5.1) mmol/L Chloride (98-107) mmol/L Carbon Dioxide (22-30) mmol/L Anion Gap (5-15) MEQ/L BUN (7-17) mg/dL Creatinine (0.52-1.04) mg/dL Estimated GFR ML/MIN Glucose (74-106) mg/dL Calcium (8.4-10.2) mg/dL Total Bilirubin (0.2-1.3) mg/dL AST (14-36) U/L ALT (0-35) U/L Alkaline Phosphatase (38-126) U/L Troponin I (0.000-0.034) ng/mL Serum Total Protein (6.3-8.2) g/dL Albumin (3.5-5.0) g/dL - Progress Progress: improved, re-examined Air Movement: good Progress Note: 09/07/20 23:02 I did review this patient's history, physical findings, complaint, EKG results with Dr. Farfan who is the patient's primary care physician. Since she was chest evaluated 5 days ago and discharged from this hospital and seen by her kiln puller yesterday, Dr. Farfan states that if her work-up is negative inc luding negative troponin and negative D-dimer and the blood pressure is in an appropriate range, the patient can be discharged to home. She would be instructed then to follow-up with her kiln puller tomorrow. 09/07/20 23:23 Medical decision making: This patient's D-dimer is now 696. Her presentation was chest pain. Her initial troponin is within normal limits. Her EKG does not show any acute ischemic changes. Her most recent blood pressure is 155/75. This is much improved since her admission. I did discuss this patient with Dr. Farfan. We are going to place the patient in observation get serial troponin levels and obtain a V/Q perfusion scan. The patient is allergic to iodine. Blood Culture(s) Obtained: No Antibiotics given: No Discussed with : Tigist Counseled pt/family regarding: lab results, diagnosis, need for follow-up - Departure Departure Disposition: Observation Clinical Impression: Chest pain, Elevated d-dimer Condition: Stable Critical Care Time: No Referrals: CHILO FARFAN MD [Primary Care Provider] -
[2020-09-07 22:12] LABS: Absolute Neutrophil Ct (ANC) 2.32 (1.4-6.9); BASOPHIL % 1.1 % (0.0-0.4); Basophil (Absolute #) 0.07 (0-0.4); Eosinophil % 3.2 % (0.00-5.0); Hematocrit 36.5 % (35-47); Hemoglobin 12.3 gm/dl (12.0-16.0); Lymphocyte (Absolute #) 2.84 (1.0-4.6); Lymphocytes % 45.2 % (24.0-44.0); Mean Cell Volume 89.9 fl (78-100); Mean Corpuscular Hemoglobin 30.3 pg (26-32); Mean Corpuscular Hgb Concent. 33.7 g/dl (32-36); Mean Platelet Volume 10.5 fl (7.5-11.0); Monocyte (Absolute #) 0.86 (0.0-1.3); Monocytes % 13.7 % (0.0-12.0); Neutrophil % 36.8 % (36.0-66.0); Platelet Count 429 K/mm3 (150-450); Red Blood Count 4.06 M/mm3 (4.1-5.4); Red Cell Distribution Width 12.8 % (11.5-14.0); White Blood Count 6.3 K/mm3 (4.0-10.5)
[2020-09-07 22:17] LABS: ALBUMIN 4.7 g/dL (3.5-5.0); ALKALINE PHOSPHATASE 80 U/L (38-126); BLOOD UREA NITROGEN 7 mg/dL (7-17); CHLORIDE 95 mmol/L (98-107); Calcium 9.8 mg/dL (8.4-10.2); Carbon Dioxide 24 mmol/L (22-30); EST GLOMERULAR FILTRATION RATE > 60.0 ML/MIN; Glucose 96 mg/dL (74-106); Potassium 3.6 mmol/L (3.5-5.1); SGOT/AST 45 U/L (14-36); SGPT/ALT 30 U/L (0-35); SODIUM 131 mmol/L (137-145); Total Protein 7.4 g/dL (6.3-8.2)
[2020-09-07 22:28] LABS: INR 0.87 (0.8-3.0); PROTIME 10.3 SECONDS (9.4-12.5)
[2020-09-07] MEDS ORDERED: VASOTEC I.V. 2.5 MG IV ONE ×2 (22:39→22:53)
[2020-09-07] MEDS ORDERED: MORPHINE SULFATE 4 MG INJ ONE (22:53)
[2020-09-07] MEDS ORDERED: ENOXAPARIN SODIUM SQ ONE (23:21)
[2020-09-08] MEDS ORDERED: ENOXAPARIN SODIUM SQ ONE (02:02)
[2020-09-08] MEDS ORDERED: VASOTEC I.V. 2.5 MG IV SCH ×2 (02:06→05:06)
[2020-09-08] MEDS ORDERED: TYLENOL 325 MG PO PRN (02:06)
[2020-09-08] MEDS ORDERED: Zofran 4 MG/2 ML VIAL IV PRN (02:06)
[2020-09-08] MEDS ORDERED: VASOTEC I.V. 2.5 MG IV ONE (05:02)
[2020-09-08] MEDS ORDERED: VASOTEC I.V. 2.5 MG IV PRN (07:30)
--- NOTE | 2020-09-08 08:32 | PCM.HP ---
History of Present Illness - Chief Complaint Chief Complaint: cp ro History of Present Illness: is a 70 year old female who was recently admitted with chest pain and hypertensive urgency, she was seen by cardiology the day prior to admission, last night her bp spiked high and she had an aching substernal chest pain which has resolved since admission, she is normotensive this morning and has no chest pain or shortness of breath, she is nontoxic and on room air and states she feels well today. - Review of Systems Constitutional: No Fever, No Chills Respiratory: No Cough, No Short Of Breath Cardiac: Chest Pain (resolved), No Edema, No Palpitations Abdominal/Gastrointestinal: No Abdominal Pain, No Nausea, No Vomiting, No Diarrhea Skin: No Rash Neurological: No Dizziness, No Focal Weakness, No Sensory Changes All Other Systems: Reviewed and Negative Medications & Allergies Home Medications: Home Medication List Gabapentin [Neurontin] 800 mg PO QID 07/28/14 [History Confirmed 09/07/20] Aspirin [Aspir-Low] 81 mg PO DAILY 03/28/16 [History Confirmed 09/07/20] Atorvastatin Calcium [Lipitor] 20 mg PO WEEKLY 03/28/16 [History Confirmed 09/07/20] Clopidogrel Bisulfate 75 mg [PLAVIX 75 MG Tablet] 75 mg PO DAILY 03/28/16 [History Confirmed 09/07/20] lisinopriL [Lisinopril] 2.5 mg PO HS 03/28/16 [History Confirmed 09/07/20] Hydrocodone Bit/Acetaminophen [[place] 5-325 Tablet] 1 each PO TID PRN 07/10/17 [History Confirmed 09/07/20] Zolpidem Tartrate 10 mg [Ambien 10 MG] 10 mg PO QHS 07/12/18 [History Confirmed 09/07/20] Metoprolol Tartrate 25 mg [Lopressor 25MG Tab] 25 mg PO BID 04/15/20 [History Confirmed 09/07/20] Clonidine HCl 0.1 mg [Catapres 0.1 MG] 0.1 mg PO BID #60 tablet 09/02/20 [Rx Confirmed 09/07/20] Amlodipine Besylate [Norvasc] 2.5 mg PO DAILY 09/07/20 [History Confirmed 09/07/20] Allergies/Adverse Reactions: Allergies Allergy/AdvReac Type Severity Reaction Status Date / Time iodine Allergy Verified 09/07/20 21:36 penicillin G Allergy Verified 09/07/20 21:36 codeine AdvReac Intermediate Vomiting Verified 09/07/20 21:36 - Past Medical History Past Medical History: Yes Neurological History: TIA ENT History: No Pertinent History Cardiac History: High Cholesterol, Hypertension, Myocardial Infarction ([place]) Respiratory History: No Pertinent History Endocrine Medical History: Liver Disease Musculoskelatal History: Arthritis, Osteoporosis GI Medical History: No Pertinent History History: No Pertinent History Pyscho-Social History: No Pertinent History Reproductive Disorders: No Pertinent History Comment: 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, neck and face - Past Surgical History Past Surgical History: Yes Neuro Surgical History: No Pertinent History Cardiac History: Cardiac Catheterization, Cardiac Stent Respiratory Surgery: No Pertinent History GI Surgical History: No Pertinent History Genitourinary Surgical Hx: No Pertinent History Musculskeletal Surgical Hx: Orthopedic Surgery Female Surgical History: Section, Hysterectomy Other Surgical History: NECK - Social History Smoking Status: Never smoker Exposure to second hand smoke: No Alcohol: None Drug Use: none Significant Family History: heart disease, hypertension - Physical Exam Vital Signs: Vital Signs - 24 hr Temp Pulse Pulse Resp BP Pulse Ox 09/08/20 07:39 97.9 F 60 18 117/58 96 09/08/20 04:00 98 F 70 18 187/83 99 09/08/20 02:45 98 F 70 18 187/83 99 09/08/20 02:05 74 18 155/74 98 09/08/20 01:05 97 H 16 160/85 99 09/08/20 00:32 66 180/118 100 09/07/20 23:25 100 09/07/20 23:00 67 16 189/97 100 09/07/20 22:27 100 09/07/20 21:26 97.8 F 80 80 20 243/110 100 General Appearance: no apparent distress, alert Neurologic Exam: alert, oriented x 3, cooperative, normal mood/affect, nml cerebellar function, nml station & gait, sensation nml, No motor deficits Respiratory Exam: normal breath sounds, lungs clear, No respiratory distress Cardiovascular Exam: regular rate/rhythm, normal heart sounds, normal peripheral pulses Gastrointestinal/Abdomen Exam: soft, normal bowel sounds, No tenderness, No mass Extremity Exam: normal inspection, normal range of motion, pelvis stable Skin Exam: normal color, warm, dry, No rash Results - Labs Lab/Micro Results: Lab Results-Last 24 Hours 09/07/20 09/07/20 09/07/20 Range/Units 21:50 21:50 21:50 WBC 6.3 (4.0-10.5) K/mm3 RBC 4.06 L (4.1-5.4) M/mm3 Hgb 12.3 (12.0-16.0) gm/dl Hct 36.5 (35-47) % MCV 89.9 (78-100) fl MCH 30.3 (26-32) pg MCHC 33.7 (32-36) g/dl RDW 12.8 (11.5-14.0) % Plt Count 429 (150-450) K/mm3 MPV 10.5 (7.5-11.0) fl Gran % 36.8 (36.0-66.0) % Eos # (Auto) 0.20 (0-0.5) Absolute Lymphs (auto) 2.84 (1.0-4.6) Absolute Monos (auto) 0.86 (0.0-1.3) Lymphocytes % 45.2 H (24.0-44.0) % Monocytes % 13.7 H (0.0-12.0) % Eosinophils % 3.2 (0.00-5.0) % Basophils % 1.1 (0.0-0.4) % Absolute Granulocytes 2.32 (1.4-6.9) Basophils # 0.07 (0-0.4) PT (9.4-12.5) SECONDS INR (0.8-3.0) D-Dimer (215-500) ng/mL Sodium 131 L (137-145) mmol/L Potassium 3.6 (3.5-5.1) mmol/L Chloride 95 L (98-107) mmol/L Carbon Dioxide 24 (22-30) mmol/L Anion Gap 16.0 H (5-15) MEQ/L BUN 7 (7-17) mg/dL Creatinine 0.60 (0.52-1.04) mg/dL Estimated GFR > 60.0 ML/MIN Glucose 96 (74-106) mg/dL Calcium 9.8 (8.4-10.2) mg/dL Total Bilirubin 0.30 (0.2-1.3) mg/dL AST 45 H (14-36) U/L ALT 30 (0-35) U/L Alkaline Phosphatase 80 (38-126) U/L Troponin I < 0.012 (0.000-0.034) ng/mL Serum Total Protein 7.4 (6.3-8.2) g/dL Albumin 4.7 (3.5-5.0) g/dL SARS-CoV-2 (PCR) (NEGATIVE) 09/07/20 09/08/20 09/08/20 Range/Units 22:15 00:21 01:20 WBC (4.0-10.5) K/mm3 RBC (4.1-5.4) M/mm3 Hgb (12.0-16.0) gm/dl Hct (35-47) % MCV (78-100) fl MCH (26-32) pg MCHC (32-36) g/dl RDW (11.5-14.0) % Plt Count (150-450) K/mm3 MPV (7.5-11.0) fl Gran % (36.0-66.0) % Eos # (Auto) (0-0.5) Absolute Lymphs (auto) (1.0-4.6) Absolute Monos (auto) (0.0-1.3) Lymphocytes % (24.0-44.0) % Monocytes % (0.0-12.0) % Eosinophils % (0.00-5.0) % Basophils % (0.0-0.4) % Absolute Granulocytes (1.4-6.9) Basophils # (0-0.4) PT 10.3 (9.4-12.5) SECONDS INR 0.87 (0.8-3.0) D-Dimer 696 H* (215-500) ng/mL Sodium (137-145) mmol/L Potassium (3.5-5.1) mmol/L Chloride (98-107) mmol/L Carbon Dioxide (22-30) mmol/L Anion Gap (5-15) MEQ/L BUN (7-17) mg/dL Creatinine (0.52-1.04) mg/dL Estimated GFR ML/MIN Glucose (74-106) mg/dL Calcium (8.4-10.2) mg/dL Total Bilirubin (0.2-1.3) mg/dL AST (14-36) U/L ALT (0-35) U/L Alkaline Phosphatase (38-126) U/L Troponin I < 0.012 (0.000-0.034) ng/mL Serum Total Protein (6.3-8.2) g/dL Albumin (3.5-5.0) g/dL SARS-CoV-2 (PCR) NEGATIVE (NEGATIVE) 09/08/20 09/08/20 Range/Units 05:02 07:10 WBC (4.0-10.5) K/mm3 RBC (4.1-5.4) M/mm3 Hgb (12.0-16.0) gm/dl Hct (35-47) % MCV (78-100) fl MCH (26-32) pg MCHC (32-36) g/dl RDW (11.5-14.0) % Plt Count (150-450) K/mm3 MPV (7.5-11.0) fl Gran % (36.0-66.0) % Eos # (Auto) (0-0.5) Absolute Lymphs (auto) (1.0-4.6) Absolute Monos (auto) (0.0-1.3) Lymphocytes % (24.0-44.0) % Monocytes % (0.0-12.0) % Eosinophils % (0.00-5.0) % Basophils % (0.0-0.4) % Absolute Granulocytes (1.4-6.9) Basophils # (0-0.4) PT (9.4-12.5) SECONDS INR (0.8-3.0) D-Dimer (215-500) ng/mL Sodium (137-145) mmol/L Potassium (3.5-5.1) mmol/L Chloride (98-107) mmol/L Carbon Dioxide (22-30) mmol/L Anion Gap (5-15) MEQ/L BUN (7-17) mg/dL Creatinine (0.52-1.04) mg/dL Estimated GFR ML/MIN Glucose (74-106) mg/dL Calcium (8.4-10.2) mg/dL Total Bilirubin (0.2-1.3) mg/dL AST (14-36) U/L ALT (0-35) U/L Alkaline Phosphatase (38-126) U/L Troponin I < 0.012 0.168 H* (0.000-0.034) ng/mL Serum Total Protein (6.3-8.2) g/dL Albumin (3.5-5.0) g/dL SARS-CoV-2 (PCR) (NEGATIVE) - Radiology Impressions Radiology Exams & Impressions: Radiology Procedures Category Date Time Status PULMONARY PERF VENTILATION [NUCMED] Stat Exams 09/08/20 02:06 Ordered Assessment/Plan (1) Chest pain Current Visit: Yes Status: Acute Assessment & Plan: resolved, bp is currently well controlled but awaiting vq scan, was covered with lovenox in ER last night. troponin midlly elevated this am, will consult with [facility]. Code(s): R07.9 - CHEST PAIN, UNSPECIFIED (2) Elevated troponin Current Visit: Yes Status: Acute Code(s): R77.8 - OTHER SPECIFIED ABNORMALITIES OF PLASMA PROTEINS (3) Elevated d-dimer Current Visit: Yes Status: Acute Code(s): R79.89 - OTHER SPECIFIED ABNORMAL FINDINGS OF BLOOD CHEMISTRY (4) Hypertensive urgency Current Visit: No Status: Acute Code(s): I16.0 - HYPERTENSIVE URGENCY
[2020-09-08] MEDS ORDERED: NORVASC 5 MG PO SCH (12:00)
[2020-09-08] MEDS: ECOTRIN 81 MG PO SCH (12:22)
[2020-09-08] MEDS: PLAVIX 75 MG Tablet PO SCH (12:23)
[2020-09-08] MEDS: Lopressor 25MG Tab PO SCH ×2 (12:24→22:52)
[2020-09-08] MEDS: Catapres 0.1 MG PO SCH ×2 (12:24→21:38)
[2020-09-08] MEDS: Neurontin 400 MG PO SCH ×3 (12:26→23:02)
[2020-09-08] MEDS ORDERED: ZOCOR 20MG PO SCH (13:00)
[2020-09-08] MEDS ORDERED: NON-FORMULARY ITEM (Gabapentin [Neurontin] 800 MG) PO SCH (13:00)
[2020-09-08] MEDS ORDERED: NORVASC 5 MG PO ONE (15:00)
--- NOTE | 2020-09-08 15:16 | XRAY ---
Indication: Chest pain, short of breath, and elevated d-dimer. Known allergy to contrast dye. Comparison: None Patient received 4.4 mCi technetium 99 MAA for the perfusion portion of the exam. Patient inhaled approximately 30 mCi of aerosolized technetium 99 DTPA for the ventilation portion. Multiple planar images obtained. Perfusion images demonstrates bilateral homogeneous radiopharmaceutical activity without focal segmental/subsegmental perfusion defects. Ventilation images also demonstrates bilateral homogeneous radiopharmaceutical activity. Small amount of ingested radiopharmaceutical activity in the GI system. Impression: Nuclear medicine ventilation perfusion scan is normal.
--- NOTE | 2020-09-08 15:18 | XRAY ---
Indication: Chest pain and short of breath. Elevated d-dimer. Comparison: April 23, 2020. PA/lateral chest again demonstrates normal heart and lungs with a few incidental tiny calcified granulomas. Heart and mediastinal structures within normal limits. Bony thorax intact again with mild osteopenia, degenerative changes, and minimal scoliosis. Impression: Continued nonacute chest with chronic features.
[2020-09-08] MEDS: NORCO 5/325 MG PO PRN ×2 (17:57→22:48)
[2020-09-08] MEDS: Sodium Chloride 0.9% 1000 ML 1,000 ML IV SCH ×2 (19:38→23:02)
[2020-09-08] MEDS ORDERED: Zestril 10 MG PO SCH ×2 (22:00)
[2020-09-08] MEDS ORDERED: Ambien 10 MG PO SCH (22:00)
[2020-09-08] MEDS ORDERED: Zestril 5 MG PO SCH (22:00)
[2020-09-09 06:12] LABS: Absolute Neutrophil Ct (ANC) 1.63 (1.4-6.9); BASOPHIL % 0.8 % (0.0-0.4); Basophil (Absolute #) 0.04 (0-0.4); Eosinophil % 5.6 % (0.00-5.0); Eosinophil (Absolute #) 0.27 (0-0.5); Hematocrit 35.4 % (35-47); Hemoglobin 11.8 gm/dl (12.0-16.0); Lymphocyte (Absolute #) 2.27 (1.0-4.6); Lymphocytes % 47.4 % (24.0-44.0); Mean Cell Volume 91.5 fl (78-100); Mean Corpuscular Hemoglobin 30.5 pg (26-32); Mean Corpuscular Hgb Concent. 33.3 g/dl (32-36); Mean Platelet Volume 10.4 fl (7.5-11.0); Monocyte (Absolute #) 0.58 (0.0-1.3); Monocytes % 12.1 % (0.0-12.0); Neutrophil % 34.1 % (36.0-66.0); Platelet Count 398 K/mm3 (150-450); Red Blood Count 3.87 M/mm3 (4.1-5.4); White Blood Count 4.8 K/mm3 (4.0-10.5)
[2020-09-09 06:19] LABS: ALBUMIN 4.3 g/dL (3.5-5.0); ALKALINE PHOSPHATASE 60 U/L (38-126); ANION GAP 15.8 MEQ/L (5-15); BLOOD UREA NITROGEN 11 mg/dL (7-17); CHLORIDE 95 mmol/L (98-107); Calcium 9.8 mg/dL (8.4-10.2); Carbon Dioxide 25 mmol/L (22-30); Creatinine 1 0.62 mg/dL (0.52-1.04); EST GLOMERULAR FILTRATION RATE > 60.0 ML/MIN; Glucose 89 mg/dL (74-106); Potassium 4.3 mmol/L (3.5-5.1); SGOT/AST 37 U/L (14-36); SGPT/ALT 29 U/L (0-35); SODIUM 131 mmol/L (137-145); Total Protein 6.9 g/dL (6.3-8.2)
[2020-09-09 07:42] VITALS: PULSE 62
[2020-09-09] MEDS: PLAVIX 75 MG Tablet PO SCH (07:59)
[2020-09-09] MEDS: NORCO 5/325 MG PO PRN (07:59)
[2020-09-09] MEDS: ECOTRIN 81 MG PO SCH (07:59)
[2020-09-09] MEDS: Catapres 0.1 MG PO SCH (08:01)
[2020-09-09] MEDS: Lopressor 25MG Tab PO SCH (08:01)
[2020-09-09] MEDS: Neurontin 400 MG PO SCH (08:01)
[2020-09-09] MEDS ORDERED: PATIENT OWN MEDICATION PO SCH (10:00)
[2020-09-09] MEDS ORDERED: NON-FORMULARY ITEM (Amlodipine Besylate [Norvasc] 2.5 MG) PO SCH (10:00)
[2020-09-09] MEDS ORDERED: NORVASC 5 MG PO SCH ×2 (10:00→22:00)
[2020-09-09 11:50] VITALS: BP 138/60; O2SAT 99
--- NOTE | 2020-09-09 16:02 | PCM.DCORD ---
- Discharge Disposition: Home, Self-Care Condition: Stable Prescriptions: New Amlodipine Besylate [Norvasc] 2.5 mg PO BID #30 tablet Lisinopril 5 mg [Zestril 5 MG] 5 mg PO HS tablet Continue Gabapentin [Neurontin] 800 mg PO QID Clopidogrel Bisulfate 75 mg [PLAVIX 75 MG Tablet] 75 mg PO DAILY Aspirin [Aspir-Low] 81 mg PO DAILY Atorvastatin Calcium [Lipitor] 20 mg PO WEEKLY Hydrocodone Bit/Acetaminophen [[place] 5-325 Tablet] 1 each PO TID PRN PRN Reason: Pain Zolpidem Tartrate 10 mg [Ambien 10 MG] 10 mg PO QHS Metoprolol Tartrate 25 mg [Lopressor 25MG Tab] 25 mg PO BID Discontinued lisinopriL [Lisinopril] 2.5 mg PO HS Clonidine HCl 0.1 mg [Catapres 0.1 MG] 0.1 mg PO BID #60 tablet Amlodipine Besylate [Norvasc] 2.5 mg PO DAILY Instructions: High Blood Pressure (DC), Checking Your Blood Pressure at Home Additional Instructions: STOP TAKING CATAPRES. TAKE NORVASC 2.5MG TWICE DAILY, CHECK YOU BP PRIOR TO TAKING. IF BP IS <110, DO NOT TAKE MEDICATION AT THAT TIME. CONTINUE TAKING LISINOPRIL AND LOPRESSOR PREVIOUSLY ORDERED PER DR. IRVIN Follow up with: RANI IRVIN [CONSULTING PHYSICIAN] - (FOLLOW UP IN ONE WEEK. ) CHILO FARFAN MD [Primary Care Provider] - 1 Week Forms: Patient Portal Information
--- NOTE | 2020-09-09 16:07 | PCM.DS ---
Discharge Summary Date of Admission: 09/08/20 01:54 Admitting Physician: CHILO FARFAN Consults: Consults on Case 09/08/20 08:32 Consult Cardiology ROUTINE Primary Care Provider: CHILO FARFAN Allergies Allergies iodine Allergy (Verified 09/07/20 21:36) penicillin G Allergy (Verified 09/07/20 21:36) codeine Adverse Reaction (Intermediate, Verified 09/07/20 21:36) Vomiting Hospital Summary - Vitals & Intake/Output Vital Signs: Vital Signs Temperature 96.4 F 09/09/20 11:50 Pulse Rate 62 09/09/20 11:50 Respiratory Rate 16 09/09/20 11:50 Blood Pressure 138/60 09/09/20 11:50 O2 Sat by Pulse Oximetry 99 09/09/20 11:50 Intake & Output: Intake & Output 09/07/20 09/08/20 09/09/20 09/10/20 11:59 11:59 11:59 11:59 Intake Total 360 2100 240 Balance 360 2100 240 Weight 39.4 kg 38.8 kg - Lab Result Diagrams: 09/09/20 05:43 09/09/20 05:43 Lab Results-Last 24 Hrs: Lab Results-Last 24 Hours 09/09/20 09/09/20 Range/Units 05:43 05:43 WBC 4.8 (4.0-10.5) K/mm3 RBC 3.87 L (4.1-5.4) M/mm3 Hgb 11.8 L (12.0-16.0) gm/dl Hct 35.4 (35-47) % MCV 91.5 (78-100) fl MCH 30.5 (26-32) pg MCHC 33.3 (32-36) g/dl RDW 13.0 (11.5-14.0) % Plt Count 398 (150-450) K/mm3 MPV 10.4 (7.5-11.0) fl Gran % 34.1 L (36.0-66.0) % Eos # (Auto) 0.27 (0-0.5) Absolute Lymphs (auto) 2.27 (1.0-4.6) Absolute Monos (auto) 0.58 (0.0-1.3) Lymphocytes % 47.4 H (24.0-44.0) % Monocytes % 12.1 H (0.0-12.0) % Eosinophils % 5.6 H (0.00-5.0) % Basophils % 0.8 (0.0-0.4) % Absolute Granulocytes 1.63 (1.4-6.9) Basophils # 0.04 (0-0.4) Sodium 131 L (137-145) mmol/L Potassium 4.3 (3.5-5.1) mmol/L Chloride 95 L (98-107) mmol/L Carbon Dioxide 25 (22-30) mmol/L Anion Gap 15.8 H (5-15) MEQ/L BUN 11 (7-17) mg/dL Creatinine 0.62 (0.52-1.04) mg/dL Estimated GFR > 60.0 ML/MIN Glucose 89 (74-106) mg/dL Calcium 9.8 (8.4-10.2) mg/dL Total Bilirubin 0.40 (0.2-1.3) mg/dL AST 37 H (14-36) U/L ALT 29 (0-35) U/L Alkaline Phosphatase 60 (38-126) U/L Serum Total Protein 6.9 (6.3-8.2) g/dL Albumin 4.3 (3.5-5.0) g/dL - Radiology Exams Ordered Rad Exams-Entire Visit: Radiology Procedures Category Date Time Status CHEST 2 VIEWS (PA AND LAT) Routine Exams 09/08/20 14:15 Completed PULMONARY PERF VENTILATION [NUCMED] Stat Exams 09/08/20 02:06 Completed - Procedures and Test Procedures and Tests throughout Hospitalization: Therapy Orders & Screens 09/08/20 02:06 EKG REPEAT IN AM Comment: - Discharge Disposition: Home, Self-Care Condition: Stable Prescriptions: New Amlodipine Besylate [Norvasc] 2.5 mg PO BID #30 tablet Lisinopril 5 mg [Zestril 5 MG] 5 mg PO HS tablet Continue Gabapentin [Neurontin] 800 mg PO QID Clopidogrel Bisulfate 75 mg [PLAVIX 75 MG Tablet] 75 mg PO DAILY Aspirin [Aspir-Low] 81 mg PO DAILY Atorvastatin Calcium [Lipitor] 20 mg PO WEEKLY Hydrocodone Bit/Acetaminophen [[place] 5-325 Tablet] 1 each PO TID PRN PRN Reason: Pain Zolpidem Tartrate 10 mg [Ambien 10 MG] 10 mg PO QHS Metoprolol Tartrate 25 mg [Lopressor 25MG Tab] 25 mg PO BID Discontinued lisinopriL [Lisinopril] 2.5 mg PO HS Clonidine HCl 0.1 mg [Catapres 0.1 MG] 0.1 mg PO BID #60 tablet Amlodipine Besylate [Norvasc] 2.5 mg PO DAILY Instructions: High Blood Pressure (DC), Checking Your Blood Pressure at Home Additional Instructions: STOP TAKING CATAPRES. TAKE NORVASC 2.5MG TWICE DAILY, CHECK YOU BP PRIOR TO TAKING. IF BP IS <110, DO NOT TAKE MEDICATION AT THAT TIME. CONTINUE TAKING LISINOPRIL AND LOPRESSOR PREVIOUSLY ORDERED PER DR. IRVIN Follow up with: RANI IRVIN [CONSULTING PHYSICIAN] - (FOLLOW UP IN ONE WEEK. ) CHILO FARFAN MD [Primary Care Provider] - 1 Week Forms: Patient Portal Information
[2020-09-10] MEDS ORDERED: Zestril 10 MG PO SCH (10:00)
== END 2020-09-09 16:15 | disposition home or self-care (01) ==
LOC: ED 21:24 → MED SURG 09-08 01:54
PROVIDERS: ADMIT Family Medicine; ATTEND Family Medicine
DX: R07.9 Chest pain, unspecified (principal); I16.0 Hypertensive urgency; I10 Essential (primary) hypertension; Z79.899 Other long term (current) drug therapy; Z79.01 Long term (current) use of anticoagulants; E78.00 Pure hypercholesterolemia, unspecified; I25.10 Atherosclerotic heart disease of native coronary artery without angina pectoris; R00.2 Palpitations; I25.2 Old myocardial infarction; R77.8 Other specified abnormalities of plasma proteins; R79.89 Other specified abnormal findings of blood chemistry; Z20.828 Contact with and (suspected) exposure to other viral communicable diseases
CPT/HCPCS: 36000; 36415; 71046; 78582; 80053; 84484; 85025; 85379; 85610; 93005; 93041; 94760; 96360; 96372; 96374; 99285; A9540; A9567; G0378; Q3014; U0003; 96375; J1650; J2270; A9270-GY

== ENCOUNTER 2020-11-14 08:27 | Day surgery (SDC) | payer MEDICARE ==
[~2020-11-14 08:27] MED LIST: Ak-Dilate OPHTHALMIC*** 1.065 ML, Cyclogyl 1% OPHTH SOL 5 ML 1.065 ML, GATIFLOXACIN 0.5... OP ONE; BETADINE 5% OPHTHALMIC 30 ML OP ONE; Lactated Ringers 1,000 ML IV SCH; NON-FORMULARY ITEM OP ONE; TETRACAINE 0.5% STERI-UNIT SOL OP ONE; cefUROXime sodium 0.005 GM in Sodium Chloride Flush 30 ML*** 0.5 ML IJ SCH
[2020-11-14] MEDS ORDERED: LIDOCAINE HCL 1% 50 MG/5 ML VL PF IJ ONE (09:00)
[2020-11-14] MEDS ORDERED: ACETAZOLAMIDE 250 MG TABLET PO ONE (09:00)
[2020-11-14] MEDS ORDERED: Epinephrine Preservative Free 1 MG/ML INTRAOP ONE (09:00)
[2020-11-14] MEDS ORDERED: Zofran 4 MG/2 ML VIAL IV PRN (09:00)
[2020-11-14] MEDS ORDERED: Lactated Ringers 1,000 ML IV ONE (09:19)
[2020-11-14] MEDS ORDERED: ROBINUL ONE (09:20)
[2020-11-14] MEDS ORDERED: DIPRIVAN 200 MG/20 ML IV ONE (09:20)
[2020-11-14] MEDS ORDERED: TYLENOL 325 MG PO STA (12:14)
[2020-11-14 12:25] VITALS: BP 151/91; PULSE 89; O2SAT 96
== END 2020-11-14 12:35 | disposition home or self-care (01) ==
LOC: SDC 08:27
PROVIDERS: ATTEND Ophthalmology
DX: H25.812 Combined forms of age-related cataract, left eye (principal); Z79.899 Other long term (current) drug therapy
CPT/HCPCS: 99100; C1780; J0171; J2001; J2704; A9270-GY

== ENCOUNTER 2020-12-12 10:50 | Day surgery (SDC) | payer MEDICARE ==
[2020-12-12] MEDS ORDERED: LIDOCAINE HCL 1% 50 MG/5 ML VL PF IJ ONE (10:51)
[2020-12-12] MEDS ORDERED: Epinephrine Preservative Free 1 MG/ML IJ ONE (10:51)
[2020-12-12] MEDS ORDERED: Zofran 4 MG/2 ML VIAL IV PRN (11:00)
[2020-12-12] MEDS ORDERED: ACETAZOLAMIDE 250 MG TABLET PO ONE (11:00)
[2020-12-12 12:34] LABS: INR 0.85 (0.8-3.0)
[2020-12-12] MEDS ORDERED: ROBINUL ONE (13:07)
[2020-12-12] MEDS ORDERED: SUBLIMAZE 100 MCG/2 ML ONE (13:07)
[2020-12-12] MEDS ORDERED: DIPRIVAN 200 MG/20 ML IV ONE (13:07)
[2020-12-12] MEDS ORDERED: Versed 2 MG/2 ML Injection ONE (13:07)
[2020-12-12 14:24] VITALS: BP 148/82; PULSE 79; O2SAT 97
== END 2020-12-12 14:30 | disposition home or self-care (01) ==
LOC: SDC 10:50
PROVIDERS: ATTEND Ophthalmology
DX: H25.811 Combined forms of age-related cataract, right eye (principal); Z79.899 Other long term (current) drug therapy; Z79.01 Long term (current) use of anticoagulants
CPT/HCPCS: 36415; 85610; 99100; C1780; J0171; J2001; J2250; J2704; J3010; A9270-GY

== ENCOUNTER 2021-04-01 20:02 | Observation (INO) | payer MEDICARE ==
--- NOTE | 2021-04-01 20:23 | ERPHSYRPT ---
- History of Present Illness Time Seen by Provider: 04/01/21 20:15 Historian: patient, family Exam Limitations: no limitations Physician History: pt is SP stent/AK and developed left CP with numbness down left arm up to jaw and face relieved by 1 NTG at home. No N/V, took one 81 mg ASA at home. no more given in ER due to hx TIA and bilateral carotid Dx and anuerysm - pending CT in ER. No Headache, No neuro deficits. No pronator drift, fundo benign. no visual defects. 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 Timing/Duration: today Activities at Onset: none Quality: pressure, throbbing, tightness Location: substernal Chest Pain Radiation: jaw, neck, arm Severity of Pain-Max: moderate Severity of Pain-Current: moderate Modifying Factors: Improves With: nitroglycerin, aspirin Associated Symptoms: dizziness Prior Chest Pain/Cardiac Workup: angina, cardiac cath, heart attack Nitro Today/Relief: 0.4 mg x 1, provided at home, complete relief Aspirin Treatment Today: 81 mg x 1, provided at home Allergies/Adverse Reactions: iodine Allergy (Intermediate, Verified 04/01/21 20:22) Nausea and Vomiting penicillin G Allergy (Intermediate, Verified 04/01/21 20:22) states unknown , as a child codeine Adverse Reaction (Intermediate, Verified 04/01/21 20:22) Vomiting Home Medications: Gabapentin [Neurontin] 800 mg PO QID 07/28/14 [History] Aspirin [Aspir-Low] 81 mg PO DAILY 03/28/16 [History] Clopidogrel Bisulfate 75 mg [PLAVIX 75 MG Tablet] 75 mg PO DAILY 03/28/16 [History] Hydrocodone/Acetaminophen [[place] 5-325 Tablet] 1 each PO TID PRN 07/10/17 [History] Zolpidem Tartrate 10 mg [Ambien 10 MG] 10 mg PO QHS 07/12/18 [History] Amlodipine Besylate [Norvasc] 5 mg PO DAILY 04/01/21 [History] Lisinopril 5 mg [Zestril 5 MG] 10 mg PO BID 04/01/21 [History] Hx Tetanus, Diphtheria Vaccination/Date Given: Yes Hx Influenza Vaccination/Date Given: Yes Hx Pneumococcal Vaccination/Date Given: Yes Travel Risk - Vaccine Status Have you recieved a Covid-19 vaccination: No - Review of Systems Constitutional: No Fever, No Chills Eyes: No Symptoms Ears, Nose, & Throat: No Symptoms Respiratory: No Cough, No Dyspnea Cardiac: Chest Pain, No Edema, No Syncope Abdominal/Gastrointestinal: No Abdominal Pain, No Nausea, No Vomiting, No Diarrhea Genitourinary Symptoms: No Dysuria Musculoskeletal: No Symptoms, No Back Pain, No Neck Pain Skin: No Symptoms, No Rash Neurological: Dizziness, No Focal Weakness, No Headache, No Sensory Changes Psychological: No Symptoms Endocrine: No Symptoms Hematologic/Lymphatic: No Symptoms Immunological/Allergic: No Symptoms All Other Systems: Reviewed and Negative - Past Medical History Pertinent Past Medical History: Yes Neurological History: TIA ENT History: No Pertinent History Cardiac History: High Cholesterol, Hypertension, Myocardial Infarction (AK) Respiratory History: No Pertinent History Endocrine Medical History: Liver Disease Musculoskeletal History: Arthritis, Osteoporosis GI Medical History: No Pertinent History History: No Pertinent History Psycho-Social History: No Pertinent History Female Reproductive Disorders: No Pertinent History Other Medical History: RSD ( reflex sympathetic dystrophy) in L Upper arm, neck and face - Past Surgical History Past Surgical History: Yes Neuro Surgical History: No Pertinent History Cardiac: Cardiac Catheterization, Cardiac Stent Respiratory: No Pertinent History Gastrointestinal: No Pertinent History Genitourinary: No Pertinent History Musculoskeletal: Orthopedic Surgery Female Surgical History: Section, Hysterectomy Other Surgical History: NECK- cadaver bone and nerve surgery - Social History Smoking Status: Never smoker Exposure to second hand smoke: No Alcohol Use: None Drug Use: none Patient Lives Alone: Yes Significant Family History: heart disease, hypertension - Nursing Vital Signs Nursing Vital Signs: Initial Vital Signs Pulse Rate 88 04/01/21 20:02 Respiratory Rate 18 04/01/21 20:02 Blood Pressure 160/102 04/01/21 20:02 O2 Sat by Pulse Oximetry 100 04/01/21 20:02 Pain Scale Pain Intensity 0 - Physical Exam General Appearance: no apparent distress, alert Eye Exam: PERRL/EOMI, eyes nml inspection Ears, Nose, Throat Exam: normal ENT inspection, moist mucous membranes Neck Exam: normal inspection, non-tender, supple, full range of motion Respiratory Exam: normal breath sounds, lungs clear, No respiratory distress Cardiovascular Exam: regular rate/rhythm, normal heart sounds Gastrointestinal/Abdomen Exam: soft, No tenderness, No mass Pelvic Exam: deferred Rectal Exam: deferred Back Exam: normal inspection, No CVA tenderness, No vertebral tenderness Extremity Exam: normal inspection, normal range of motion Neurologic Exam: alert, oriented x 3, cooperative, program services planner II-XII nml as tested, normal mood/affect, nml cerebellar function, nml station & gait, sensation nml, No motor deficits, No facial droop Skin Exam: normal color, warm, dry SpO2 Interpretation: normal SpO2: 100 O2 Delivery: Room Air - Course Nursing assessment & vital signs reviewed: Yes EKG Interpreted by Me: Sinus Tach, Non-specific ST Changes - Radiology Exams Chest X-ray Interpretation: Reviewed by me, Other (right lung stranding/granulomas and scarring) - CT Exams Head CT Interpretation: Tele-radiologist Report, No/Intracranial Hemorrhag, Other (chronic cerebrovascular Dx) Ordered Tests: Active Orders 24 hr Category Date Time Status Ladies Underwear Operator STAT Care 04/01/21 20:27 Active EKG-ER Only STAT Care 04/01/21 20:25 Active IV Insertion STAT Care 04/01/21 20:25 Active NPO (ED) STAT Care 04/01/21 20:26 Active Stroke Scale [NIHSS Flowsheet (Stroke Scale)] Q4H Care 04/01/21 20:29 Active Consult Neurology ROUTINE Cons 04/01/21 20:47 Active CHEST 1 VIEW (PORTABLE) Stat Exams 04/01/21 20:26 Taken CHEST WITH CONTRAST [CT] Stat Exams 04/01/21 21:46 Ordered HEAD WITHOUT CONTRAST [CT] Stat Exams 04/01/21 20:28 Taken CBC W DIFF Stat Lab 04/01/21 20:48 Completed CMP Stat Lab 04/01/21 20:48 Completed D-DIMER QUANTITATIVE Stat Lab 04/01/21 20:48 Completed NT PRO BNP Routine Lab 04/01/21 20:48 Completed PTT Stat Lab 04/01/21 20:48 Completed TROPONIN Q3H Lab 04/01/21 20:48 Completed TROPONIN Q3H Lab 04/01/21 23:45 Completed TROPONIN Q3H Lab 04/02/21 02:30 Ordered TROPONIN Q3H Lab 04/02/21 05:30 Ordered TROPONIN Q3H Lab 04/02/21 08:30 Ordered UA W/RFX UR CULTURE Stat Lab 04/01/21 20:35 Completed Medication Summary Generic Name Dose Route Start Last Admin Trade Name Freq PRN Reason Stop Dose Admin Sodium Chloride 1,000 mls @ 50 mls/hr 04/01/21 20:30 04/01/21 20:43 Sodium Chloride 0.9% 1000 Ml IV 05/01/21 20:29 50 mls/hr .Q20H RALPH Administration Discontinued Medications Generic Name Dose Route Start Last Admin Trade Name Frederick PRN Reason Stop Dose Admin Aspirin 324 mg 04/01/21 22:41 04/01/21 22:44 Aspirin 81 Mg Tab.Chew PO 04/01/21 22:42 243 mg STAT ONE Administration Nitroglycerin 1 gm 04/02/21 00:42 04/02/21 00:42 Nitroglycerin 1 Gm Packet TOP 04/02/21 00:43 1 gm STAT ONE Administration Nitroglycerin Confirm 04/02/21 00:41 Nitroglycerin 1 Gm Packet Administered 04/02/21 00:42 Dose 1 gm .ROUTE .STUnique Property-MED ONE Lab/Rad Data: Laboratory Result Diagrams 04/01/21 20:48 04/01/21 20:48 Laboratory Results 04/01/21 04/01/21 04/01/21 Range/Units 23:45 20:48 20:48 WBC (4.0-10.5) K/mm3 RBC (4.1-5.4) M/mm3 Hgb (12.0-16.0) gm/dl Hct (35-47) % MCV (78-100) fl MCH (26-32) pg MCHC (32-36) g/dl RDW (11.5-14.0) % Plt Count (150-450) K/mm3 MPV (7.5-11.0) fl Gran % (36.0-66.0) % Eos # (Auto) (0-0.5) Absolute Lymphs (auto) (1.0-4.6) Absolute Monos (auto) (0.0-1.3) Lymphocytes % (24.0-44.0) % Monocytes % (0.0-12.0) % Eosinophils % (0.00-5.0) % Basophils % (0.0-0.4) % Absolute Granulocytes (1.4-6.9) Basophils # (0-0.4) APTT 30.8 (25.1-36.5) SECONDS D-Dimer 648 H* (215-500) ng/mL Sodium (137-145) mmol/L Potassium (3.5-5.1) mmol/L Chloride (98-107) mmol/L Carbon Dioxide (22-30) mmol/L Anion Gap (5-15) MEQ/L BUN (7-17) mg/dL Creatinine (0.52-1.04) mg/dL Estimated GFR ML/MIN Glucose (74-106) mg/dL Calcium (8.4-10.2) mg/dL Total Bilirubin (0.2-1.3) mg/dL AST (14-36) U/L ALT (0-35) U/L Alkaline Phosphatase (38-126) U/L Troponin I < 0.012 < 0.012 (0.000-0.034) ng/mL NT-Pro-B Natriuret Pep 90.0 (0-900) pg/mL Serum Total Protein (6.3-8.2) g/dL Albumin (3.5-5.0) g/dL Urine Color (YELLOW) Urine Appearance (CLEAR) Urine pH (5-6) Ur Specific Energy (1.005-1.025) Urine Protein (Negative) Urine Ketones (NEGATIVE) Urine Blood (0-5) [place] Urine Nitrite (NEGATIVE) Urine Bilirubin (NEGATIVE) Urine Urobilinogen (0-1) mg/dL Ur Leukocyte Esterase (NEGATIVE) Urine WBC (Auto) (0-5) /HPF Urine RBC (Auto) (0-2) /HPF U Epithel Cells (Auto) (FEW) /HPF Urine Bacteria (Auto) (NEGATIVE) /HPF Urine Culture Reflexed (NO) Urine Glucose (NEGATIVE) mg/dL 04/01/21 04/01/21 04/01/21 Range/Units 20:48 20:48 20:35 WBC 7.8 (4.0-10.5) K/mm3 RBC 3.75 L (4.1-5.4) M/mm3 Hgb 11.3 L (12.0-16.0) gm/dl Hct 33.7 L (35-47) % MCV 89.9 (78-100) fl MCH 30.1 (26-32) pg MCHC 33.5 (32-36) g/dl RDW 13.2 (11.5-14.0) % Plt Count 441 (150-450) K/mm3 MPV 10.2 (7.5-11.0) fl Gran % 47.8 (36.0-66.0) % Eos # (Auto) 0.22 (0-0.5) Absolute Lymphs (auto) 2.83 (1.0-4.6) Absolute Monos (auto) 0.98 (0.0-1.3) Lymphocytes % 36.4 (24.0-44.0) % Monocytes % 12.6 H (0.0-12.0) % Eosinophils % 2.8 (0.00-5.0) % Basophils % 0.4 (0.0-0.4) % Absolute Granulocytes 3.72 (1.4-6.9) Basophils # 0.03 (0-0.4) APTT (25.1-36.5) SECONDS D-Dimer (215-500) ng/mL Sodium 131 L (137-145) mmol/L Potassium 3.5 (3.5-5.1) mmol/L Chloride 97 L (98-107) mmol/L Carbon Dioxide 22 (22-30) mmol/L Anion Gap 15.4 H (5-15) MEQ/L BUN 9 (7-17) mg/dL Creatinine 0.67 (0.52-1.04) mg/dL Estimated GFR > 60.0 ML/MIN Glucose 111 H (74-106) mg/dL Calcium 9.7 (8.4-10.2) mg/dL Total Bilirubin 0.50 (0.2-1.3) mg/dL AST 35 (14-36) U/L ALT 22 (0-35) U/L Alkaline Phosphatase 86 (38-126) U/L Troponin I (0.000-0.034) ng/mL NT-Pro-B Natriuret Pep (0-900) pg/mL Serum Total Protein 7.1 (6.3-8.2) g/dL Albumin 4.3 (3.5-5.0) g/dL Urine Color STRAW (YELLOW) Urine Appearance CLEAR (CLEAR) Urine pH 7.0 (5-6) Ur Specific Energy 1.008 (1.005-1.025) Urine Protein NEGATIVE (Negative) Urine Ketones TRACE (NEGATIVE) Urine Blood NEGATIVE (0-5) [place] Urine Nitrite NEGATIVE (NEGATIVE) Urine Bilirubin NEGATIVE (NEGATIVE) Urine Urobilinogen NEGATIVE (0-1) mg/dL Ur Leukocyte Esterase NEGATIVE (NEGATIVE) Urine WBC (Auto) 0-2 (0-5) /HPF Urine RBC (Auto) NONE (0-2) /HPF U Epithel Cells (Auto) NONE (FEW) /HPF Urine Bacteria (Auto) NONE SEEN (NEGATIVE) /HPF Urine Culture Reflexed NO (NO) Urine Glucose NEGATIVE (NEGATIVE) mg/dL - Progress Progress: improved, re-examined Air Movement: good Progress Note: 04/02/21 01:36 teleneuro completed and they agree that there is no acute CVA evolving but that routine w/u can be accomplished with MRI/MRA and also for carotids. Discussed with pt and Dr. Farfan and will place in on observation and continue serial trops and have arranged additional MRIs MRAs for pt tomorrow with radiology as requested by neuro. 04/02/21 01:46 pt cannot take the dye for a PE rule out for elevated D dimer, but has normal pulse ox at this time and not short of breath. limitations of the d dimer screening test were discussed with pt as well as AC risk and benefits and since she has no symptoms in this area at this time she wishes to await for VQ scan later today prior to further AC Tx and she has the capacity to make this choice which is reasonable given no major resp symptoms at this time. Blood Culture(s) Obtained: No Antibiotics given: No Discussed with : Tigist Will see patient in: hospital (observation) Counseled pt/family regarding: lab results, diagnosis, need for follow-up, rad results - Departure Departure Disposition: Home Clinical Impression: CAD (coronary artery disease), Chest pain, subjective neuro symptoms, Elevated d-dimer Condition: Good Critical Care Time: No Referrals: CHILO FARFAN MD [Primary Care Provider] - Follow up/PCP as directed
[2021-04-01] MEDS ORDERED: Sodium Chloride 0.9% 1000 ML 1,000 ML IV SCH (20:30)
[2021-04-01] MEDS ORDERED: Sodium Chloride 0.9% 1000 ML 1,000 ML ONE (20:36)
[2021-04-01 21:01] LABS: ALBUMIN 4.3 g/dL (3.5-5.0); ALKALINE PHOSPHATASE 86 U/L (38-126); ANION GAP 15.4 MEQ/L (5-15); Absolute Neutrophil Ct (ANC) 3.72 (1.4-6.9); BLOOD UREA NITROGEN 9 mg/dL (7-17); Basophil (Absolute #) 0.03 (0-0.4); CHLORIDE 97 mmol/L (98-107); Calcium 9.7 mg/dL (8.4-10.2); Carbon Dioxide 22 mmol/L (22-30); Creatinine 1 0.67 mg/dL (0.52-1.04); EST GLOMERULAR FILTRATION RATE > 60.0 ML/MIN; Eosinophil % 2.8 % (0.00-5.0); Eosinophil (Absolute #) 0.22 (0-0.5); Glucose 111 mg/dL (74-106); Hematocrit 33.7 % (35-47); Hemoglobin 11.3 gm/dl (12.0-16.0); Lymphocyte (Absolute #) 2.83 (1.0-4.6); Lymphocytes % 36.4 % (24.0-44.0); Mean Cell Volume 89.9 fl (78-100); Mean Corpuscular Hemoglobin 30.1 pg (26-32); Mean Corpuscular Hgb Concent. 33.5 g/dl (32-36); Mean Platelet Volume 10.2 fl (7.5-11.0); Monocyte (Absolute #) 0.98 (0.0-1.3); Monocytes % 12.6 % (0.0-12.0); Neutrophil % 47.8 % (36.0-66.0); Platelet Count 441 K/mm3 (150-450); Potassium 3.5 mmol/L (3.5-5.1); Red Blood Count 3.75 M/mm3 (4.1-5.4); Red Cell Distribution Width 13.2 % (11.5-14.0); SGOT/AST 35 U/L (14-36); SGPT/ALT 22 U/L (0-35); SODIUM 131 mmol/L (137-145); Total Protein 7.1 g/dL (6.3-8.2); White Blood Count 7.8 K/mm3 (4.0-10.5)
[2021-04-01 21:02] LABS: Appearance CLEAR (CLEAR); Bilirubin NEGATIVE (NEGATIVE); Blood NEGATIVE Ery/ul (0-5); Glucose NEGATIVE (NEGATIVE); Ketones TRACE (NEGATIVE); Leukocyte Esterase NEGATIVE (NEGATIVE); Nitrite NEGATIVE (NEGATIVE); Protein,Urine Dip NEGATIVE (Negative); Specific Gravity 1.008 (1.005-1.025); Urobilinogen NEGATIVE mg/dL (0-1); WBC 0-2 /HPF (0-5)
[2021-04-01 21:05] LABS: Bacteria NONE SEEN /HPF (NEGATIVE)
[2021-04-01 21:13] LABS: TROPONIN < 0.012 ng/mL (0.000-0.034)
[2021-04-01 21:31] LABS: PTT 30.8 SECONDS (25.1-36.5)
[2021-04-01] MEDS ORDERED: BABY ASPIRIN 81 MG CHEW PO ONE (22:41)
[2021-04-02] MEDS ORDERED: NITRO-BID 2% UD PACKETS ONE (00:41)
[2021-04-02] MEDS ORDERED: NITRO-BID 2% UD PACKETS TOP ONE (00:42)
[2021-04-02 02:25] LABS: INFLUENZA A NEGATIVE (NEGATIVE); INFLUENZA B NEGATIVE (NEGATIVE); RESPIRATORY SYNCTIAL VIRUS NEGATIVE (Negative); SARS-CoV-2 Xpert Express NEGATIVE (NEGATIVE)
[2021-04-02] MEDS ORDERED: Zofran 4 MG/2 ML VIAL IV PRN (03:03)
[2021-04-02] MEDS ORDERED: Sodium Chloride 0.9% 1000 ML 1,000 ML ONE (03:03)
[2021-04-02] MEDS ORDERED: TYLENOL 325 MG PO PRN (03:03)
[2021-04-02] MEDS ORDERED: DUONEB 0.5-3 MG/3 ml Neb IH PRN (03:03)
[2021-04-02] MEDS ORDERED: Senokot-S Tablet PO PRN (03:03)
[2021-04-02] MEDS ORDERED: HUMULIN R SQ PRN (03:03)
[2021-04-02] MEDS ORDERED: MAALOX ES 30 ML UNIT DOSE PO PRN (03:03)
[2021-04-02] MEDS ORDERED: MORPHINE SULFATE 2 MG INJ IV PRN (03:03)
[2021-04-02] MEDS ORDERED: MILK OF MAGNESIA 30 ML PO PRN (03:03)
[2021-04-02] MEDS: Sodium Chloride 0.9% 500 ML 500 ML IV SCH ×2 (03:09→22:26)
[2021-04-02] MEDS: NITRO-BID 2% UD PACKETS TOP SCH ×3 (06:05→22:03)
--- NOTE | 2021-04-02 06:26 | PCM.HP ---
History of Present Illness - Chief Complaint Chief Complaint: Chest pain History of Present Illness: is a 70 year old female with a previous history of OR and stenting, follows with Dr Araujo. She developed substernal chest pain last night at rest while watching television, her pain resolved with nitro, also states she felt like her BP were elevated so checked and it was 200 systolic so came to ER, chest pain recurred after arrival but has been pain free since nitro paste was placed, she denies shortness of breath. she had some facial numbness as well but no neuro deficits on exam, teleneuro consult in ER and orders placed for MRA head/neck. - Review of Systems Constitutional: No Fever, No Chills Respiratory: No Cough, No Short Of Breath Cardiac: Chest Pain (resolved), No Edema, No Palpitations Abdominal/Gastrointestinal: No Abdominal Pain, No Nausea, No Vomiting, No Diarrhea Skin: No Rash All Other Systems: Reviewed and Negative Medications & Allergies Home Medications: Home Medication List Gabapentin [Neurontin] 800 mg PO QID 07/28/14 [History Confirmed 04/01/21] Clopidogrel Bisulfate 75 mg [PLAVIX 75 MG Tablet] 75 mg PO DAILY 03/28/16 [History Confirmed 04/01/21] Hydrocodone/Acetaminophen [[place] 5-325 Tablet] 1 each PO TID PRN 07/10/17 [History Confirmed 04/01/21] Zolpidem Tartrate 10 mg [Ambien 10 MG] 10 mg PO QHS 07/12/18 [History Confirmed 04/01/21] Amlodipine Besylate [Norvasc] 5 mg PO DAILY 04/01/21 [History Confirmed 04/01/21] Lisinopril 5 mg [Zestril 5 MG] 10 mg PO BID 04/01/21 [History Confirmed 04/01/21] Allergies/Adverse Reactions: Allergies Allergy/AdvReac Type Severity Reaction Status Date / Time iodine Allergy Intermediate Nausea and Verified 04/01/21 20:22 Vomiting penicillin G Allergy Intermediate Verified 04/01/21 20:22 codeine AdvReac Intermediate Vomiting Verified 04/01/21 20:22 - Past Medical History Past Medical History: Yes Neurological History: Peripheral Neuropathy, TIA ENT History: Cataracts Cardiac History: Hypertension, Myocardial Infarction (OR) Respiratory History: No Pertinent History Endocrine Medical History: Liver Disease Musculoskelatal History: Arthritis, Osteoporosis GI Medical History: No Pertinent History History: No Pertinent History Pyscho-Social History: No Pertinent History Reproductive Disorders: No Pertinent History Comment: RSD ( reflex sympathetic dystrophy) in L Upper arm, neck and face - Female History Are you now?: No - Past Surgical History Past Surgical History: Yes Neuro Surgical History: No Pertinent History Cardiac History: Cardiac Catheterization, Cardiac Stent Respiratory Surgery: No Pertinent History GI Surgical History: No Pertinent History Genitourinary Surgical Hx: No Pertinent History Musculskeletal Surgical Hx: Orthopedic Surgery Female Surgical History: Section, Hysterectomy Other Surgical History: NECK- cadaver bone and nerve surgery - Social History Smoking Status: Never smoker Exposure to second hand smoke: No Alcohol: None Drug Use: none Significant Family History: heart disease, hypertension - Physical Exam Vital Signs: Vital Signs - 24 hr Temp Pulse Pulse Resp BP Pulse Ox 04/02/21 04:00 97.9 F 85 20 158/74 97 04/02/21 03:27 97.9 F 76 20 158/74 97 04/02/21 02:00 78 20 136/76 96 04/02/21 01:59 100 04/02/21 01:00 73 22 160/89 98 04/02/21 00:00 71 17 157/82 98 04/01/21 23:00 80 18 155/65 99 04/01/21 22:09 74 15 147/80 96 04/01/21 21:09 79 18 146/84 99 04/01/21 20:05 90 04/01/21 20:02 88 18 160/102 100 General Appearance: no apparent distress, alert Respiratory Exam: normal breath sounds, lungs clear, No respiratory distress Cardiovascular Exam: regular rate/rhythm, normal heart sounds, normal peripheral pulses Gastrointestinal/Abdomen Exam: soft, normal bowel sounds, No tenderness, No mass Extremity Exam: normal inspection, normal range of motion, pelvis stable Skin Exam: normal color, warm, dry, No rash Results - Labs Lab/Micro Results: Lab Results-Last 24 Hours 04/01/21 04/01/21 04/01/21 Range/Units 20:35 20:48 20:48 WBC 7.8 (4.0-10.5) K/mm3 RBC 3.75 L (4.1-5.4) M/mm3 Hgb 11.3 L (12.0-16.0) gm/dl Hct 33.7 L (35-47) % MCV 89.9 (78-100) fl MCH 30.1 (26-32) pg MCHC 33.5 (32-36) g/dl RDW 13.2 (11.5-14.0) % Plt Count 441 (150-450) K/mm3 MPV 10.2 (7.5-11.0) fl Gran % 47.8 (36.0-66.0) % Eos # (Auto) 0.22 (0-0.5) Absolute Lymphs (auto) 2.83 (1.0-4.6) Absolute Monos (auto) 0.98 (0.0-1.3) Lymphocytes % 36.4 (24.0-44.0) % Monocytes % 12.6 H (0.0-12.0) % Eosinophils % 2.8 (0.00-5.0) % Basophils % 0.4 (0.0-0.4) % Absolute Granulocytes 3.72 (1.4-6.9) Basophils # 0.03 (0-0.4) APTT (25.1-36.5) SECONDS D-Dimer (215-500) ng/mL Sodium 131 L (137-145) mmol/L Potassium 3.5 (3.5-5.1) mmol/L Chloride 97 L (98-107) mmol/L Carbon Dioxide 22 (22-30) mmol/L Anion Gap 15.4 H (5-15) MEQ/L BUN 9 (7-17) mg/dL Creatinine 0.67 (0.52-1.04) mg/dL Estimated GFR > 60.0 ML/MIN Glucose 111 H (74-106) mg/dL Hemoglobin A1c (4.5-6.0) % Calcium 9.7 (8.4-10.2) mg/dL Total Bilirubin 0.50 (0.2-1.3) mg/dL AST 35 (14-36) U/L ALT 22 (0-35) U/L Alkaline Phosphatase 86 (38-126) U/L Troponin I (0.000-0.034) ng/mL NT-Pro-B Natriuret Pep (0-900) pg/mL Serum Total Protein 7.1 (6.3-8.2) g/dL Albumin 4.3 (3.5-5.0) g/dL Vitamin B12 (239-931) pg/mL Urine Color STRAW (YELLOW) Urine Appearance CLEAR (CLEAR) Urine pH 7.0 (5-6) Ur Specific [place] 1.008 (1.005-1.025) Urine Protein NEGATIVE (Negative) Urine Ketones TRACE (NEGATIVE) Urine Blood NEGATIVE (0-5) [place] Urine Nitrite NEGATIVE (NEGATIVE) Urine Bilirubin NEGATIVE (NEGATIVE) Urine Urobilinogen NEGATIVE (0-1) mg/dL Ur Leukocyte Esterase NEGATIVE (NEGATIVE) Urine WBC (Auto) 0-2 (0-5) /HPF Urine RBC (Auto) NONE (0-2) /HPF U Epithel Cells (Auto) NONE (FEW) /HPF Urine Bacteria (Auto) NONE SEEN (NEGATIVE) /HPF Urine Culture Reflexed NO (NO) Urine Glucose NEGATIVE (NEGATIVE) mg/dL Influenza Type A Ag (NEGATIVE) Influenza Type B Ag (NEGATIVE) RSV (PCR) (Negative) SARS-CoV-2 (PCR) (NEGATIVE) 04/01/21 04/01/21 04/01/21 Range/Units 20:48 20:48 23:45 WBC (4.0-10.5) K/mm3 RBC (4.1-5.4) M/mm3 Hgb (12.0-16.0) gm/dl Hct (35-47) % MCV (78-100) fl MCH (26-32) pg MCHC (32-36) g/dl RDW (11.5-14.0) % Plt Count (150-450) K/mm3 MPV (7.5-11.0) fl Gran % (36.0-66.0) % Eos # (Auto) (0-0.5) Absolute Lymphs (auto) (1.0-4.6) Absolute Monos (auto) (0.0-1.3) Lymphocytes % (24.0-44.0) % Monocytes % (0.0-12.0) % Eosinophils % (0.00-5.0) % Basophils % (0.0-0.4) % Absolute Granulocytes (1.4-6.9) Basophils # (0-0.4) APTT 30.8 (25.1-36.5) SECONDS D-Dimer 648 H* (215-500) ng/mL Sodium (137-145) mmol/L Potassium (3.5-5.1) mmol/L Chloride (98-107) mmol/L Carbon Dioxide (22-30) mmol/L Anion Gap (5-15) MEQ/L BUN (7-17) mg/dL Creatinine (0.52-1.04) mg/dL Estimated GFR ML/MIN Glucose (74-106) mg/dL Hemoglobin A1c (4.5-6.0) % Calcium (8.4-10.2) mg/dL Total Bilirubin (0.2-1.3) mg/dL AST (14-36) U/L ALT (0-35) U/L Alkaline Phosphatase (38-126) U/L Troponin I < 0.012 < 0.012 (0.000-0.034) ng/mL NT-Pro-B Natriuret Pep 90.0 (0-900) pg/mL Serum Total Protein (6.3-8.2) g/dL Albumin (3.5-5.0) g/dL Vitamin B12 (239-931) pg/mL Urine Color (YELLOW) Urine Appearance (CLEAR) Urine pH (5-6) Ur Specific [place] (1.005-1.025) Urine Protein (Negative) Urine Ketones (NEGATIVE) Urine Blood (0-5) [place] Urine Nitrite (NEGATIVE) Urine Bilirubin (NEGATIVE) Urine Urobilinogen (0-1) mg/dL Ur Leukocyte Esterase (NEGATIVE) Urine WBC (Auto) (0-5) /HPF Urine RBC (Auto) (0-2) /HPF U Epithel Cells (Auto) (FEW) /HPF Urine Bacteria (Auto) (NEGATIVE) /HPF Urine Culture Reflexed (NO) Urine Glucose (NEGATIVE) mg/dL Influenza Type A Ag (NEGATIVE) Influenza Type B Ag (NEGATIVE) RSV (PCR) (Negative) SARS-CoV-2 (PCR) (NEGATIVE) 04/02/21 04/02/21 04/02/21 Range/Units 01:46 02:38 03:08 WBC (4.0-10.5) K/mm3 RBC (4.1-5.4) M/mm3 Hgb (12.0-16.0) gm/dl Hct (35-47) % MCV (78-100) fl MCH (26-32) pg MCHC (32-36) g/dl RDW (11.5-14.0) % Plt Count (150-450) K/mm3 MPV (7.5-11.0) fl Gran % (36.0-66.0) % Eos # (Auto) (0-0.5) Absolute Lymphs (auto) (1.0-4.6) Absolute Monos (auto) (0.0-1.3) Lymphocytes % (24.0-44.0) % Monocytes % (0.0-12.0) % Eosinophils % (0.00-5.0) % Basophils % (0.0-0.4) % Absolute Granulocytes (1.4-6.9) Basophils # (0-0.4) APTT (25.1-36.5) SECONDS D-Dimer (215-500) ng/mL Sodium (137-145) mmol/L Potassium (3.5-5.1) mmol/L Chloride (98-107) mmol/L Carbon Dioxide (22-30) mmol/L Anion Gap (5-15) MEQ/L BUN (7-17) mg/dL Creatinine (0.52-1.04) mg/dL Estimated GFR ML/MIN Glucose (74-106) mg/dL Hemoglobin A1c (4.5-6.0) % Calcium (8.4-10.2) mg/dL Total Bilirubin (0.2-1.3) mg/dL AST (14-36) U/L ALT (0-35) U/L Alkaline Phosphatase (38-126) U/L Troponin I < 0.012 (0.000-0.034) ng/mL NT-Pro-B Natriuret Pep (0-900) pg/mL Serum Total Protein (6.3-8.2) g/dL Albumin (3.5-5.0) g/dL Vitamin B12 194 L (239-931) pg/mL Urine Color (YELLOW) Urine Appearance (CLEAR) Urine pH (5-6) Ur Specific [place] (1.005-1.025) Urine Protein (Negative) Urine Ketones (NEGATIVE) Urine Blood (0-5) [place] Urine Nitrite (NEGATIVE) Urine Bilirubin (NEGATIVE) Urine Urobilinogen (0-1) mg/dL Ur Leukocyte Esterase (NEGATIVE) Urine WBC (Auto) (0-5) /HPF Urine RBC (Auto) (0-2) /HPF U Epithel Cells (Auto) (FEW) /HPF Urine Bacteria (Auto) (NEGATIVE) /HPF Urine Culture Reflexed (NO) Urine Glucose (NEGATIVE) mg/dL Influenza Type A Ag NEGATIVE (NEGATIVE) Influenza Type B Ag NEGATIVE (NEGATIVE) RSV (PCR) NEGATIVE (Negative) SARS-CoV-2 (PCR) NEGATIVE (NEGATIVE) 04/02/21 Range/Units 03:08 WBC (4.0-10.5) K/mm3 RBC (4.1-5.4) M/mm3 Hgb (12.0-16.0) gm/dl Hct (35-47) % MCV (78-100) fl MCH (26-32) pg MCHC (32-36) g/dl RDW (11.5-14.0) % Plt Count (150-450) K/mm3 MPV (7.5-11.0) fl Gran % (36.0-66.0) % Eos # (Auto) (0-0.5) Absolute Lymphs (auto) (1.0-4.6) Absolute Monos (auto) (0.0-1.3) Lymphocytes % (24.0-44.0) % Monocytes % (0.0-12.0) % Eosinophils % (0.00-5.0) % Basophils % (0.0-0.4) % Absolute Granulocytes (1.4-6.9) Basophils # (0-0.4) APTT (25.1-36.5) SECONDS D-Dimer (215-500) ng/mL Sodium (137-145) mmol/L Potassium (3.5-5.1) mmol/L Chloride (98-107) mmol/L Carbon Dioxide (22-30) mmol/L Anion Gap (5-15) MEQ/L BUN (7-17) mg/dL Creatinine (0.52-1.04) mg/dL Estimated GFR ML/MIN Glucose (74-106) mg/dL Hemoglobin A1c 5.80 (4.5-6.0) % Calcium (8.4-10.2) mg/dL Total Bilirubin (0.2-1.3) mg/dL AST (14-36) U/L ALT (0-35) U/L Alkaline Phosphatase (38-126) U/L Troponin I (0.000-0.034) ng/mL NT-Pro-B Natriuret Pep (0-900) pg/mL Serum Total Protein (6.3-8.2) g/dL Albumin (3.5-5.0) g/dL Vitamin B12 (239-931) pg/mL Urine Color (YELLOW) Urine Appearance (CLEAR) Urine pH (5-6) Ur Specific [place] (1.005-1.025) Urine Protein (Negative) Urine Ketones (NEGATIVE) Urine Blood (0-5) [place] Urine Nitrite (NEGATIVE) Urine Bilirubin (NEGATIVE) Urine Urobilinogen (0-1) mg/dL Ur Leukocyte Esterase (NEGATIVE) Urine WBC (Auto) (0-5) /HPF Urine RBC (Auto) (0-2) /HPF U Epithel Cells (Auto) (FEW) /HPF Urine Bacteria (Auto) (NEGATIVE) /HPF Urine Culture Reflexed (NO) Urine Glucose (NEGATIVE) mg/dL Influenza Type A Ag (NEGATIVE) Influenza Type B Ag (NEGATIVE) RSV (PCR) (Negative) SARS-CoV-2 (PCR) (NEGATIVE) - Radiology Impressions Radiology Exams & Impressions: Radiology Procedures Category Date Time Status CHEST 1 VIEW (PORTABLE) Stat Exams 04/01/21 20:26 Taken HEAD WITHOUT CONTRAST [CT] Stat Exams 04/01/21 20:28 Taken MRA BRAIN WITHOUT CONTRAST [MRI] Routine Exams 04/02/21 08:00 Ordered MRA NECK W AND W/O CONTRAST [MRI] Routine Exams 04/02/21 08:00 Ordered MRI BRAIN W/O CONTRAST [MRI] Routine Exams 04/02/21 08:00 Ordered PULMONARY PERF PARTICULATE [NUCMED] Routine Exams 04/02/21 Ordered PULMONARY PERF VENTILATION [NUCMED] Routine Exams 04/02/21 Ordered - Other Procedures and Tests Respiratory Therapy 04/02/21 05:00 EKG DAILY 04/03/21 05:00 EKG ROUTINE 04/04/21 05:00 EKG DAILY 04/05/21 05:00 EKG DAILY Assessment/Plan (1) Chest pain Current Visit: Yes Status: Acute Assessment & Plan: ekg with no acute changes this am, troponin negative thus far. will r/o OR, will consult providewye cardiology telemed consult. Code(s): R07.9 - CHEST PAIN, UNSPECIFIED (2) Elevated d-dimer Current Visit: Yes Status: Acute Assessment & Plan: await VQ scan due to iodine allergy. Code(s): R79.89 - OTHER SPECIFIED ABNORMAL FINDINGS OF BLOOD CHEMISTRY (3) CAD (coronary artery disease) Current Visit: Yes Status: Chronic Code(s): I25.10 - ATHSCL HEART DISEASE OF [place] CORONARY ARTERY W/O ANG PCTRS (4) Facial numbness Current Visit: Yes Status: Acute Assessment & Plan: transient and resolved but workup per teleneurology recommendation is pending. Code(s): R20.0 - ANESTHESIA OF SKIN
[2021-04-02 06:29] LABS: ALBUMIN 3.9 g/dL (3.5-5.0); ALKALINE PHOSPHATASE 61 U/L (38-126); BLOOD UREA NITROGEN 8 mg/dL (7-17); CHLORIDE 103 mmol/L (98-107); Calcium 9.7 mg/dL (8.4-10.2); Carbon Dioxide 23 mmol/L (22-30); Cholesterol 200 mg/dL (50-200); Creatinine 1 0.61 mg/dL (0.52-1.04); EST GLOMERULAR FILTRATION RATE > 60.0 ML/MIN; Glucose 89 mg/dL (74-106); HDL CHOLESTEROL 88 mg/dL (40-60); LDL, DIRECT 91 mg/dL (30-100); Risk Ratio 2.3; SGOT/AST 35 U/L (14-36); SGPT/ALT 22 U/L (0-35); SODIUM 134 mmol/L (137-145); TRIGLYCERIDE 55 mg/dL (30-150); Total Protein 6.6 g/dL (6.3-8.2)
[2021-04-02 06:34] LABS: Potassium 4.7 mmol/L (3.5-5.1)
[2021-04-02 06:35] LABS: ANION GAP 12.7 MEQ/L (5-15)
--- NOTE | 2021-04-02 09:13 | XRAY ---
Indication: Left upper extremity numbness and tingling. Headache. Elevated blood pressure. Multiple contiguous axial images obtained through the head without contrast. Comparison: September 01, 2020. Normal appearing brain parenchyma, ventricles, and bony calvarium for patient's age. Visualized paranasal sinuses and mastoid air cells are clear. Impression: Continued normal CT head without contrast exam. Comment: Preliminary interpretation made by [facility]. No critical discrepancy.
--- NOTE | 2021-04-02 09:15 | XRAY ---
Indication: Chest pain. Comparison: September 08, 2020. Portable chest remains clear. Heart not enlarged. Bony thorax intact again with osteopenia and degenerative changes. Impression: Continued nonacute chest.
[2021-04-02] MEDS: Neurontin 400 MG PO SCH ×4 (09:49→22:03)
[2021-04-02] MEDS: ENOXAPARIN SODIUM SQ SCH ×2 (09:49→22:02)
[2021-04-02] MEDS: PLAVIX 75 MG Tablet PO SCH (09:50)
[2021-04-02] MEDS: NORVASC 5 MG PO SCH (09:50)
[2021-04-02] MEDS: Pepcid 20 MG VIAL IV SCH ×2 (09:50→22:02)
[2021-04-02] MEDS: Zestril 10 MG PO SCH ×2 (09:51→22:03)
[2021-04-02] MEDS ORDERED: NON-FORMULARY ITEM (Gabapentin [Neurontin] 800 MG Tablet) PO SCH (10:00)
[2021-04-02] MEDS ORDERED: NON-FORMULARY ITEM (Amlodipine Besylate [Norvasc] 2.5 MG Tablet) PO SCH (10:00)
[2021-04-02] MEDS ORDERED: Zestril 5 MG PO SCH (10:00)
[2021-04-02] MEDS: NORCO 5/325 MG PO PRN ×2 (10:56→22:26)
--- NOTE | 2021-04-02 14:40 | XRAY ---
Indication: Left chest pain short of breath. Elevated d-dimer. Comparison: September 08, 2020. Patient received 4.8 mCi technetium 99 MAA for the perfusion portion of the exam. Patient inhaled approximately 35.8 mCi of aerosolized technetium 99 DTPA for the ventilation portion. Multiple planar images obtained. Perfusion images demonstrates bilateral homogeneous radiopharmaceutical activity without focal segmental/subsegmental perfusion defects. Ventilation images also demonstrates bilateral homogeneous radiopharmaceutical activity. Small amount of ingested radiopharmaceutical activity in the GI system. Impression: Nuclear medicine ventilation perfusion scan is again normal.
--- NOTE | 2021-04-02 16:27 | XRAY ---
Indication: Cerebrovascular accident. Chest pain. Sagittal, coronal, and axial MRI brain performed without contrast using T1, T2, FLAIR, diffusion, and ADC sequences. Comparison: None Age-appropriate global atrophy. No acute intracranial hemorrhage, abnormal extra-axial fluid collection, or mass effect. Diffusion images are negative for restricted signal. Fourth ventricle is midline without hydrocephalus. 7/8 cranial nerve complex bilaterally symmetric. Normal flow void signal within the major intracerebral circulation. Normal appearing craniocervical junction and sella turcica. Paranasal sinuses are clear. Impression: Negative MRI brain without contrast exam.
--- NOTE | 2021-04-02 16:31 | XRAY ---
Indication: Cerebrovascular accident. Chest pain. Multi-slab 3-D [id number] MRA [place] performed. Comparison: None Distal internal carotid arteries are bilaterally symmetric without critical stenosis, obstruction, or AV malformation. Normal carotid terminus with normal branching A1 and M1 segments bilaterally. More distal anterior cerebral, middle cerebral, anterior communicating, and posterior communicating arteries are normal in MRA appearance. Posterior circulation demonstrates distal internal vertebral arteries to be normal in course and caliber with the left slightly larger in caliber. Remaining basilar, left/right posterior cerebral, left/right superior cerebellar, left/right anterior inferior cerebellar, and left/right posterior inferior cerebellar arteries are normal in MRA appearance. Impression: Negative MRA [place].
[2021-04-02] MEDS ORDERED: Ambien 10 MG PO SCH (22:00)
[2021-04-03 02:06] VITALS: O2SAT 97
[2021-04-03] MEDS: NITRO-BID 2% UD PACKETS TOP SCH (05:38)
[2021-04-03 07:45] VITALS: BP 110/63; PULSE 84
--- NOTE | 2021-04-03 09:01 | PCM.DS ---
Discharge Summary Date of Admission: 04/02/21 02:55 Admitting Physician: CHILO FARFAN Consults: Consults on Case 04/01/21 20:47 Consult Neurology ROUTINE 04/02/21 06:24 Consult Cardiology ROUTINE Primary Care Provider: CHILO FARFAN Allergies Allergies iodine Allergy (Intermediate, Verified 04/01/21 20:22) Nausea and Vomiting penicillin G Allergy (Intermediate, Verified 04/01/21 20:22) states unknown , as a child codeine Adverse Reaction (Intermediate, Verified 04/01/21 20:22) Vomiting Hospital Summary - Hospital Course Hospital Course: is a 70 year old female with a previous history of [place] and stenting, follows with Dr Irvin. She developed substernal chest pain, some facial numbness, and BP over 200 systolic so came to ER. She says she has episodes of elevated blood pressure intermittently. She was given nitro paste and chest pain resolved. Troponins neg x 5. Teleneurology consult was done Pt had elevated d-dimer but her V-Q scan was normal. Brain MRI/MRA nl [place]. A1c nl, cholesterol done, B12 a bit low (will be repleted po), and RPR pending per teleneurology consult. This morning she feels great, better than she has in a long time. No chest pain or paresthesias. She will be sent home and f/u with PCP. - Vitals & Intake/Output Vital Signs: Vital Signs Temperature 97.8 F 04/03/21 07:44 Pulse Rate 84 04/03/21 07:44 Respiratory Rate 19 04/03/21 07:44 Blood Pressure 110/63 04/03/21 07:44 O2 Sat by Pulse Oximetry 97 04/03/21 07:44 Intake & Output: Intake & Output 03/31/21 04/01/21 04/02/21 04/03/21 11:59 11:59 11:59 11:59 Intake Total 320 220 Output Total 400 650 Balance -80 -430 Weight 43.8 kg 35.5 kg - Lab Result Diagrams: 04/01/21 20:48 04/02/21 05:00 Lab Results-Last 24 Hrs: Lab Results-Last 24 Hours 04/02/21 Range/Units 08:20 Troponin I < 0.012 (0.000-0.034) ng/mL - Radiology Exams Ordered Rad Exams-Entire Visit: Radiology Procedures Category Date Time Status CHEST 1 VIEW (PORTABLE) Stat Exams 04/01/21 20:26 Completed HEAD WITHOUT CONTRAST [CT] Stat Exams 04/01/21 20:28 Completed MRA BRAIN WITHOUT CONTRAST [MRI] Routine Exams 04/02/21 08:00 Completed MRI BRAIN W/O CONTRAST [MRI] Routine Exams 04/02/21 08:00 Completed PULMONARY PERF VENTILATION [NUCMED] Routine Exams 04/02/21 12:30 Completed - Procedures and Test Procedures and Tests throughout Hospitalization: Therapy Orders & Screens 04/02/21 03:03 EKG [id number],[id number],PRN Comment: 04/02/21 05:00 EKG DAILY Comment: Diagnosis: Chest pain 04/03/21 05:00 EKG ROUTINE Comment: Diagnosis: Chest pain 04/04/21 05:00 EKG DAILY Comment: Diagnosis: Chest pain 04/05/21 05:00 EKG DAILY Comment: Diagnosis: Chest pain Discharge Exam General Appearance: no apparent distress, alert Neurologic Exam: oriented x 3, cooperative, normal mood/affect, No motor de ficits Ears, Nose, Throat Exam: moist mucous membranes Neck Exam: normal inspection Respiratory Exam: normal breath sounds, lungs clear, No crackles/rales, No rhonchi, No wheezing Cardiovascular Exam: regular rate/rhythm, normal heart sounds, No murmur Gastrointestinal/Abdomen Exam: soft, normal bowel sounds, No tenderness, No distention, No mass, No guarding, No rebound Back Exam: normal inspection, No rash Extremity Exam: normal inspection, No pedal edema, No swelling Skin Exam: normal color, warm, dry, No rash Final Diagnosis/Problem List - Final Discharge Diagnosis/Problem (1) Chest pain Current Visit: Yes Status: Resolved Assessment & Plan: Troponins neg x 5. Pain is resolved. F/u with Dr. Irvin - pt reports she had a stress test within the past 1 year. Code(s): R07.9 - CHEST PAIN, UNSPECIFIED (2) Elevated d-dimer Current Visit: Yes Status: Acute Assessment & Plan: VQ scan neg for PE. Code(s): R79.89 - OTHER SPECIFIED ABNORMAL FINDINGS OF BLOOD CHEMISTRY (3) Facial numbness Current Visit: Yes Status: Resolved Assessment & Plan: Teleneurology consult with TIA in differential. No new CVA on MRI, so will remain on plavix and not start ASA per neurology. Code(s): R20.0 - ANESTHESIA OF SKIN (4) CAD (coronary artery disease) Current Visit: Yes Status: Chronic Assessment & Plan: and carotid artery dz. F/u outpatient. Code(s): I25.10 - ATHSCL HEART DISEASE OF [place] CORONARY ARTERY W/O ANG PCTRS (5) Hypertension Current Visit: No Status: Chronic Assessment & Plan: currently well controlled; 160 systolic at admission but decreased for the rest of her stay here. Code(s): I10 - ESSENTIAL (PRIMARY) HYPERTENSION - Discharge Disposition: Home, Self-Care Condition: Good Prescriptions: Continue Gabapentin [Neurontin] 800 mg PO QID Clopidogrel Bisulfate 75 mg [PLAVIX 75 MG Tablet] 75 mg PO DAILY Hydrocodone/Acetaminophen [[place] 5-325 Tablet] 1 each PO TID PRN PRN Reason: Pain Zolpidem Tartrate 10 mg [Ambien 10 MG] 10 mg PO QHS Lisinopril 5 mg [Zestril 5 MG] 10 mg PO BID Amlodipine Besylate [Norvasc] 5 mg PO DAILY Follow up with: RANI IRVIN [CONSULTING PHYSICIAN] - 04/10/21 1:30 pm
[2021-04-03] MEDS: Neurontin 400 MG PO SCH (09:23)
[2021-04-03] MEDS: PLAVIX 75 MG Tablet PO SCH (09:23)
[2021-04-03] MEDS: NORVASC 5 MG PO SCH (09:23)
[2021-04-03] MEDS: Pepcid 20 MG VIAL IV SCH (09:23)
[2021-04-03] MEDS: ENOXAPARIN SODIUM SQ SCH (09:24)
[2021-04-03] MEDS: Zestril 10 MG PO SCH (09:24)
[2021-04-03 12:07] LABS: RPR Non Reactive (Non Reactive)
== END 2021-04-03 10:46 | disposition home or self-care (01) ==
LOC: ED 20:02 → MED SURG 04-02 02:55
PROVIDERS: ADMIT Family Medicine; ATTEND Family Medicine
DX: R07.9 Chest pain, unspecified (principal); R79.89 Other specified abnormal findings of blood chemistry; R20.0 Anesthesia of skin; I25.10 Atherosclerotic heart disease of native coronary artery without angina pectoris; I10 Essential (primary) hypertension; I25.2 Old myocardial infarction; Z79.899 Other long term (current) drug therapy; Z20.828 Contact with and (suspected) exposure to other viral communicable diseases
CPT/HCPCS: 0241U; 36000; 36415; 70450; 70544; 70551; 71045; 78582; 80053; 80061; 81001; 82607; 83036; 83721; 83880; 84443; 84484; 85025; 85379; 85730; 86592; 93005; 93041; 99284; A9540; A9567; 93268; J1650; A9270-GY; G0378

== ENCOUNTER 2022-05-11 12:09 | Emergency (ER) | payer MEDICARE ==
[2022-05-11 12:24] VITALS: BP 168/75; PULSE 95; O2SAT 98
--- NOTE | 2022-05-11 12:50 | ERPHSYRPT ---
- History of Present Illness Time Seen by Provider: 05/11/22 12:48 Historian: patient Exam Limitations: no limitations Patient Subjective Stated Complaint: pt here for pain to epigastric [place] off and on for a few days, she states she thinks its her plavix that is making her stomach hurt, Triage Nursing Assessment: pt alert, resp easy, skin w/d/p , no edema noted, able to undress self Physician History: Patient is 71-year-old female came to the emergency room with complaining of epigastric abdominal pain which has been there for at least last 2 to 3 days. Patient states that her pain started after she was started on Plavix. She denies any black tarry stool nausea vomiting. Timing/Duration: day(s) (2-3 days) Activities at Onset: none Quality: burning Abdominal Pain Onset Location: epigastric Pain Radiation: no radiation Severity of Pain-Max: mild Severity of Pain-Current: mild Modifying Factors: Improves With: nothing Associated Symptoms: denies symptoms Allergies/Adverse Reactions: iodine Allergy (Intermediate, Verified 05/11/22 12:22) Nausea and Vomiting penicillin G Allergy (Intermediate, Verified 05/11/22 12:22) states unknown , as a child codeine Adverse Reaction (Intermediate, Verified 05/11/22 12:22) Vomiting Home Medications: Gabapentin [Neurontin] 800 mg PO QID 07/28/14 [History] Clopidogrel Bisulfate [PLAVIX Tablet] 75 mg PO DAILY 03/28/16 [History] Hydrocodone/Acetaminophen [[place] 5-325 Tablet] 1 each PO TID PRN 07/10/17 [History] Zolpidem Tartrate 10 mg [Ambien 10 MG] 10 mg PO QHS 07/12/18 [History] Amlodipine Besylate [Norvasc] 5 mg PO DAILY 04/01/21 [History] Lisinopril 5 mg [Zestril 5 MG] 10 mg PO BID 04/01/21 [History] Hx Tetanus, Diphtheria Vaccination/Date Given: Yes Hx Influenza Vaccination/Date Given: Yes Hx Pneumococcal Vaccination/Date Given: Yes Immunizations Up to Date: Yes Travel Risk - International Travel Have you traveled outside of the country in past 3 weeks: No - Coronavirus Screening Are you exhibiting any of the following symptoms?: No - Vaccine Status Have you recieved a Covid-19 vaccination: Yes [employer] Hand: Pfizer - Vaccination Dates Date of 2cond Vaccination (if applicable): 11/10/2020 - Review of Systems Constitutional: No Fever, No Chills Eyes: No Symptoms Ears, Nose, & Throat: No Symptoms Respiratory: No Cough, No Dyspnea Cardiac: No Chest Pain, No Edema, No Syncope Abdominal/Gastrointestinal: Abdominal Pain, No Nausea, No Vomiting, No Diarrhea Genitourinary Symptoms: No Dysuria Musculoskeletal: No Back Pain, No Neck Pain Skin: No Rash Neurological: No Dizziness, No Focal Weakness, No Sensory Changes Psychological: No Symptoms Endocrine: No Symptoms All Other Systems: Reviewed and Negative - Past Medical History Pertinent Past Medical History: Yes Neurological History: Peripheral Neuropathy, TIA ENT History: Cataracts Cardiac History: Hypertension, Myocardial Infarction ([place]) Respiratory History: No Pertinent History Endocrine Medical History: Liver Disease Musculoskeletal History: Arthritis, Osteoporosis GI Medical History: No Pertinent History History: No Pertinent History Psycho-Social History: No Pertinent History Female Reproductive Disorders: No Pertinent History Other Medical History: RSD ( reflex sympathetic dystrophy) in L Upper arm, neck and face - Past Surgical History Past Surgical History: Yes Neuro Surgical History: No Pertinent History Cardiac: Cardiac Catheterization, Cardiac Stent Respiratory: No Pertinent History Gastrointestinal: No Pertinent History Genitourinary: No Pertinent History Musculoskeletal: Orthopedic Surgery Female Surgical History: Section, Hysterectomy Other Surgical History: NECK- cadaver bone and nerve surgery - Social History Smoking Status: Never smoker Exposure to second hand smoke: No Alcohol Use: None Drug Use: none Patient Lives Alone: No Significant Family History: heart disease, hypertension - Nursing Vital Signs Nursing Vital Signs: Initial Vital Signs Temperature 98.0 F 05/11/22 12:23 Pulse Rate 95 H 05/11/22 12:23 Respiratory Rate 18 05/11/22 12:23 Blood Pressure 168/75 05/11/22 12:23 O2 Sat by Pulse Oximetry 98 05/11/22 12:23 Pain Scale Pain Intensity 8 - Physical Exam General Appearance: no apparent distress, alert Eye Exam: PERRL/EOMI, eyes nml inspection Ears, Nose, Throat Exam: normal ENT inspection, pharynx normal, moist mucous membranes Neck Exam: normal inspection, non-tender, supple, full range of motion Respiratory Exam: normal breath sounds, lungs clear, No respiratory distress Cardiovascular Exam: regular rate/rhythm, normal heart sounds Gastrointestinal/Abdomen Exam: soft, tenderness (epigastric area), No mass Back Exam: normal inspection, normal range of motion, No CVA tenderness, No vertebral tenderness Extremity Exam: normal inspection, normal range of motion, pelvis stable Neurologic Exam: alert, oriented x 3, cooperative, normal mood/affect, nml cerebellar function, sensation nml, No motor deficits Skin Exam: normal color, warm, dry SpO2: 98 - Course Nursing assessment & vital signs reviewed: Yes - Progress Progress: improved, pain not gone completely Progress Note: 05/11/22 12:57 Patient is advised to stop Plavix for 7 days. She is advised to call her chairman president and chief executive officer before she started Plavix again. Patient has been taking Plavix for 5 years. Patient is advised to contact the primary care physician and if symptoms persist she is advised to consider getting a upper endoscopy. Counseled pt/family regarding: diagnosis, need for follow-up Medical Desision Making - Discussion of managment Agreed on:: Treatment plan, need for follow-up - Diagnostic Testing Diagnostic test were ordered, analyzed, and reviewed by me: No - Risk of complications The pt has a mod risk of morbidity or mortality based on: Need for prescription drug management The pt has a high risk of morbidity or mortality based on: Drug therapy requiring intensive monitoring for toxicity - Departure Departure Disposition: Home Clinical Impression: Acute gastric mucosal erosion Gastroesophageal reflux disease Qualifiers: Esophagitis presence: with esophagitis Esophagitis bleeding: without hemorrhage Qualified Code(s): K21.00 - Gastro-esophageal reflux disease with esophagitis, without bleeding Condition: Stable Critical Care Time: Yes Critical Care Time(excluding separately billable procedures): Critical 30-74 mins Referrals: CHILO FARFAN MD [Primary Care Provider] - Follow up/PCP as directed Instructions: Gastritis, Acid Reflux and GERD in Adults (DC), Clopidogrel Additional Instructions: Please hold your Plavix for at least 7 days. Start pantoprazole and famotidine as prescribed. Your prescription has been sent to your pharmacy. Follow-up with your primary care physician in next 2 to 3 days. If your symptoms get worse come back to the emergency room. Call your chairman president and chief executive officer and asked them for further plan when to start Plavix. Also follow-up with your primary care physician for further evaluation of your epigastric pain including upper endoscopy. Discharge/Care Plan JUDI BARTH was seen on 05/11/22 in the Emergency Room. The patient was counseled regarding Diagnosis,Lab results, Imaging studies, need for follow up and when to return to the Emergency Room. Prescriptions given: Discharge Note I have spoken with the patient and/or caregivers. I have explained the patient's condition, diagnosis and treatment plan based on the information available to me at this time. I have answered the patient's and/or caregiver's questions and addressed any concerns. The patient and/or caregivers have as good understanding of the patient's diagnosis, condition and treatment plan as can be expected at this point. The vital signs have been stable. The patient's condition is stable and appropriate for discharge from the emergency department. The patient will pursue further outpatient evaluation with the primary care physician or other designated or consulting physician as outlined in the discharge instructions. The patient and/or caregivers are agreeable to this plan of care and follow-up instructions have been explained in detail. The patient and/or caregivers have received these instruction. The patient/and or caregivers are aware that any significant change in condition or worsening of symptoms should prompt an immediate return to this or the closest emergency department or call 911. JUDI BARTH was seen on 05/11/22 n the Emergency Room. At that time you were treated for an emergent condition, during your visit Laboratory, Radiology and/or other procedures may have been ordered. It is very important that you follow-up with your Primary Care Physician CHILO FARFAN within the next 24- 48 hours to review your Emergency Room visit and the final results of testing that was ordered. Some test results such as Urine Cultures, Blood Cultures, and other cultures if ordered will not be finalized for 24-48 hours. If you do not have a Primary Care Provider please call the medical records department at [phone] ext [phone] to obtain a copy of your results or you may sign into our patient portal to obtain these results by visiting us @ [email or web address] and completing the following steps: 1. Click on the Patient Portal link 2. Click the Patient Self Enrollment Link to complete the enrollment form and entering your 3. Once the enrollment form is completed you will receive an email with a temporary ID and password at the email address you provided. 4. Next choose a user name and password. Your user name must be at least 4 characters long and your password must be at least 4 characters long. 5. Choose a security question from the list and provide your answer to the question. If you already have signed into the Health Portal you may access your Health Care Information 16/09 by the following steps: 1. Login to our website @ [email or web address] 2. Enter your original user name and password. FAQS The [facility] Health Portal is an online tool that contains your Lab Results, Radiology Reports, Visit History, Discharge Instructions and Health Summary Lab and Radiology Results will not be available for 72 hours on the portal. The Portal is a secure site, passwords are encryted and URLs are re-written so they cannot be copied and pasted. You and authorized family members are the only ones who can access your Portal. Also there is a timeout feature that protects your information if you leave the Portal page open. If you have technical difficulty please use the Contact Us link on the page this will allow you to submit any questions you have regarding the Portal or you may contact the Medical Record Department at [phone] ext [phone]. Prescriptions: Famotidine 20 mg [Pepcid 20 MG] 20 mg PO BID #60 tablet PANTOPRAZOLE 40 mg Tablet [Protonix 40MG Tablet] 40 mg PO QPM 30 Days #30 tab
[2022-05-11] MEDS ORDERED: Pepcid 20 MG PO ONE (12:56)
[2022-05-11] MEDS ORDERED: Protonix 40MG Tablet PO ONE (12:56)
[2022-05-11] MEDS ORDERED: Pepcid 20 MG ONE ×2 (13:00→13:01)
[2022-05-11] MEDS ORDERED: Protonix 40MG Tablet ONE (13:00)
== END 2022-05-11 13:18 | disposition home or self-care (01) ==
LOC: ED 12:09
DX: K25.3 Acute gastric ulcer without hemorrhage or perforation (principal); K21.00 Gastro-esophageal reflux disease with esophagitis, without bleeding; R10.13 Epigastric pain; I10 Essential (primary) hypertension; Z79.02 Long term (current) use of antithrombotics/antiplatelets; Z79.891 Long term (current) use of opiate analgesic; Z79.899 Other long term (current) drug therapy
CPT/HCPCS: 99282; 99291; A9270-GY

== ENCOUNTER 2022-11-11 09:50 | Inpatient (IN) | payer MEDICARE ==
--- NOTE | 2022-11-11 09:54 | ERPHSYRPT ---
- History of Present Illness Time Seen by Provider: 11/11/22 09:54 Source: patient Exam Limitations: no limitations Physician History: This is a 72-year-old white female patient of Dr. Barrett who went to the outpatient care clinic today and they referred her to our emergency department secondary to weakness and abdominal pain. Patient had a CT scan of the abdomen pelvis without contrast performed on 09/30/2022. The impression was duodenal circumferential wall thickening either incomplete distention versus duodenitis. There is mild diffuse fecal stasis present. Patient states in the last few days she has had liquid stools "go right through me" every time I eat. Patient, per her report, attempted to obtain an outpatient appointment for an upper and lower endoscopy by the [facility]. She has yet to hear back from them. Patient's complaint today is abdominal pain and weakness. Patient was offered medication for pain but she does not want anything at this time. She denies chest pain. She denies shortness of breath. She has had no fever and denies cough. Patient has a history of peripheral neuropathy, TIAs, hypertension, coronary disease (cardiac stent) and RSD. Timing/Duration: intermittent, other (Over 2 months) Activites at Onset: none Quality: aching Onset Location: periumbilical Pain Radiation: none Severity of Pain-Max: mild Severity of Pain-Current: mild Sexual intercourse history: non-contributory Modifying Factors: Improves With: other (Diarrhea) Associated Symptoms: abdominal pain, other (Diarrhea and weakness) Allergies/Adverse Reactions: iodine Allergy (Intermediate, Verified 05/11/22 12:22) Nausea and Vomiting penicillin G Allergy (Intermediate, Verified 05/11/22 12:22) states unknown , as a child codeine Adverse Reaction (Intermediate, Verified 05/11/22 12:22) Vomiting Home Medications: Gabapentin [Neurontin] 800 mg PO QID 07/28/14 [History] Clopidogrel Bisulfate [PLAVIX Tablet] 75 mg PO DAILY 03/28/16 [History] Zolpidem Tartrate 10 mg [Ambien 10 MG] 10 mg PO QHS 07/12/18 [History] Lisinopril 5 mg [Zestril 5 MG] 10 mg PO BID 04/01/21 [History] Amlodipine Besylate 5 mg [Norvasc 5 mg] 5 mg PO DAILY 11/11/22 [History] Hydrocodone/Acetaminophen [Hydrocodone-Acetamin 10-325 mg] 1 tab PO DAILY PRN 11/11/22 [History] Hx Tetanus, Diphtheria Vaccination/Date Given: Yes Hx Influenza Vaccination/Date Given: Yes Hx Pneumococcal Vaccination/Date Given: Yes Travel Risk - International Travel Have you traveled outside of the country in past 3 weeks: No - Coronavirus Screening Are you exhibiting any of the following symptoms?: No Close contact with a COVID-19 positive Pt in past 14-21 Days: No - Vaccine Status Have you recieved a Covid-19 vaccination: Yes 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: [place] - Vaccination Dates Date of 2cond Vaccination (if applicable): 11/10/2020 - Review of Systems Constitutional: Weakness Eyes: No Symptoms Ears, Nose, & Throat: No Symptoms Respiratory: No Symptoms Cardiac: No Symptoms Abdominal/Gastrointestinal: Abdominal Pain (Mild periumbilical), Diarrhea Genitourinary Symptoms: No Symptoms Musculoskeletal: No Symptoms Skin: No Symptoms Neurological: No Symptoms Psychological: No Symptoms Endocrine: No Symptoms Hematologic/Lymphatic: No Symptoms Immunological/Allergic: No Symptoms All Other Systems: Reviewed and Negative - Past Medical History Pertinent Past Medical History: Yes Neurological History: Peripheral Neuropathy, TIA ENT History: Cataracts Cardiac History: Hypertension, Myocardial Infarction ([place]) Respiratory History: No Pertinent History Endocrine Medical History: Liver Disease Musculoskeletal History: Arthritis, Osteoporosis GI Medical History: No Pertinent History History: No Pertinent History Psycho-Social History: No Pertinent History Female Reproductive Disorders: No Pertinent History Other Medical History: RSD ( reflex sympathetic dystrophy) in L Upper arm, neck and face - Past Surgical History Past Surgical History: Yes Neuro Surgical History: No Pertinent History Cardiac: Cardiac Catheterization, Cardiac Stent Respiratory: No Pertinent History Gastrointestinal: No Pertinent History Genitourinary: No Pertinent History Musculoskeletal: Orthopedic Surgery Female Surgical History: Section, Hysterectomy Other Surgical History: NECK- cadaver bone and nerve surgery - Social History Smoking Status: Never smoker Exposure to second hand smoke: No Alcohol Use: None Drug Use: none Patient Lives Alone: No Significant Family History: heart disease, hypertension - Nursing Vital Signs Nursing Vital Signs: Initial Vital Signs Temperature 97.4 F 11/11/22 10:03 Pulse Rate 76 11/11/22 10:03 Respiratory Rate 20 11/11/22 10:03 Blood Pressure 122/69 11/11/22 10:03 O2 Sat by Pulse Oximetry 98 11/11/22 10:03 Pain Scale Pain Intensity 0 - Physical Exam General Appearance: no apparent distress, alert, anxiety, thin Eye Exam: PERRL/EOMI, eyes nml inspection Ears, Nose, Throat Exam: normal ENT inspection, moist mucous membranes Neck Exam: normal inspection, non-tender, supple, full range of motion Respiratory Exam: normal breath sounds, lungs clear, airway intact, No chest tenderness, No respiratory distress Cardiovascular Exam: regular rate/rhythm, normal heart sounds, normal peripheral pulses Gastrointestinal/Abdomen Exam: soft, normal bowel sounds, tenderness (Mild periumbilical), No guarding, No rebound Pelvic Exam: not done Rectal Exam: deferred Back Exam: normal inspection, normal range of motion, No CVA tenderness, No vertebral tenderness Extremity Exam: normal inspection, normal range of motion, pelvis stable Neurologic Exam: alert, oriented x 3, cooperative, senior analyst developer II-XII nml as tested, normal mood/affect, nml cerebellar function, nml station & gait, sensation nml Skin Exam: normal color, warm, dry Lymphatic Exam: No adenopathy SpO2 Interpretation: normal O2 Delivery: Room Air - Course Nursing assessment & vital signs reviewed: Yes Ordered Tests: Active Orders 24 hr Category Date Time Status IV Insertion STAT Care 11/11/22 10:20 Active AMYLASE Stat Lab 11/11/22 10:40 Completed CBC W DIFF Stat Lab 11/11/22 10:40 Completed CMP Stat Lab 11/11/22 10:40 Completed LIPASE Stat Lab 11/11/22 10:40 Completed Lactic Acid Stat Lab 11/11/22 10:20 Completed MAG [MAGNESIUM] Stat Lab 11/11/22 10:40 Completed POTASSIUM, URINE RANDOM Stat Lab 11/11/22 11:27 Received Sodium, Urine Stat Lab 11/11/22 11:27 Received UA W/RFX UR CULTURE Stat Lab 11/11/22 11:26 Received Medication Summary Discontinued Medications Generic Name Dose Route Start Last Admin Trade Name Freq PRN Reason Stop Dose Admin Sodium Chloride 1,000 mls @ 999 mls/hr 11/11/22 10:20 11/11/22 11:28 Sodium Chloride 0.9% 1000 Ml IV 11/11/22 11:20 Infused .Q1H1M STA Infusion Sodium Chloride Confirm 11/11/22 10:23 Sodium Chloride 0.9% 1000 Ml Administered 11/11/22 10:24 Dose 1,000 mls @ ud .ROUTE .STK-MED ONE Pantoprazole Sodium 40 mg 11/11/22 10:20 11/11/22 10:25 Pantoprazole 40 Mg Vial IV 11/11/22 10:21 40 mg STAT ONE Administration Pantoprazole Sodium Confirm 11/11/22 10:23 Pantoprazole 40 Mg Vial Administered 11/11/22 10:24 Dose 40 mg IV .STK-MED ONE Lab/Rad Data: Laboratory Result Diagrams 11/11/22 10:40 11/11/22 10:40 Laboratory Results 11/11/22 11/11/22 11/11/22 Range/Units 10:40 10:40 10:40 WBC 2.9 L (4.0-10.5) x10^3/uL RBC 4.15 (4.1-5.4) x10^6/uL Hgb 12.4 (12.0-16.0) g/dL Hct 35.9 (35-47) % MCV 86.5 (78-100) fL MCH 29.9 (26-32) pg MCHC 34.5 (32-36) g/dL RDW 12.3 (11.5-14.0) % Plt Count 343 (150-450) x10^3/uL MPV 9.5 (7.5-11.0) fL Gran % 59.2 (36.0-66.0) % Immature Gran % (Auto) 0.4 (0.00-0.4) % Nucleat RBC Rel Count 0.0 (0.00-0.1) % Eos # (Auto) 0.01 (0-0.5) x10^3/uL Immature Gran # (Auto) 0.01 (0.00-0.03) x10^3u/L Absolute Lymphs (auto) 0.73 L (1.0-4.6) x10^3/uL Absolute Monos (auto) 0.39 (0.0-1.3) x10^3/uL Absolute Nucleated RBC 0.00 (0.00-0.01) x10^3u/L Lymphocytes % 25.6 (24.0-44.0) % Monocytes % 13.7 H (0.0-12.0) % Eosinophils % 0.4 (0.00-5.0) % Basophils % 0.7 (0.0-0.4) % Absolute Granulocytes 1.69 (1.4-6.9) x10^3/uL Basophils # 0.02 (0-0.4) x10^3/uL Sodium 120 L* (137-145) mmol/L Potassium 3.8 (3.5-5.1) mmol/L Chloride 89 L (98-107) mmol/L Carbon Dioxide 22 (22-30) mmol/L Anion Gap 12.8 (5-15) MEQ/L BUN 8 (7-17) mg/dL Creatinine 0.60 (0.52-1.04) mg/dL Estimated GFR > 60.0 ML/MIN Glucose 91 (74-106) mg/dL Lactic Acid (0.4-2.0) Calcium 8.4 (8.4-10.2) mg/dL Magnesium 1.6 (1.6-2.3) mg/dL Total Bilirubin 0.20 (0.2-1.3) mg/dL AST 50 H (14-36) U/L ALT 35 (0-35) U/L Alkaline Phosphatase 73 (38-126) U/L Serum Total Protein 6.3 (6.3-8.2) g/dL Albumin 3.7 (3.5-5.0) g/dL Amylase 71 (30-110) U/L Lipase 125 (23-300) U/L 11/11/22 Range/Units 10:20 WBC (4.0-10.5) x10^3/uL RBC (4.1-5.4) x10^6/uL Hgb (12.0-16.0) g/dL Hct (35-47) % MCV (78-100) fL MCH (26-32) pg MCHC (32-36) g/dL RDW (11.5-14.0) % Plt Count (150-450) x10^3/uL MPV (7.5-11.0) fL Gran % (36.0-66.0) % Immature Gran % (Auto) (0.00-0.4) % Nucleat RBC Rel Count (0.00-0.1) % Eos # (Auto) (0-0.5) x10^3/uL Immature Gran # (Auto) (0.00-0.03) x10^3u/L Absolute Lymphs (auto) (1.0-4.6) x10^3/uL Absolute Monos (auto) (0.0-1.3) x10^3/uL Absolute Nucleated RBC (0.00-0.01) x10^3u/L Lymphocytes % (24.0-44.0) % Monocytes % (0.0-12.0) % Eosinophils % (0.00-5.0) % Basophils % (0.0-0.4) % Absolute Granulocytes (1.4-6.9) x10^3/uL Basophils # (0-0.4) x10^3/uL Sodium (137-145) mmol/L Potassium (3.5-5.1) mmol/L Chloride (98-107) mmol/L Carbon Dioxide (22-30) mmol/L Anion Gap (5-15) MEQ/L BUN (7-17) mg/dL Creatinine (0.52-1.04) mg/dL Estimated GFR ML/MIN Glucose (74-106) mg/dL Lactic Acid 1.0 (0.4-2.0) Calcium (8.4-10.2) mg/dL Magnesium (1.6-2.3) mg/dL Total Bilirubin (0.2-1.3) mg/dL AST (14-36) U/L ALT (0-35) U/L Alkaline Phosphatase (38-126) U/L Serum Total Protein (6.3-8.2) g/dL Albumin (3.5-5.0) g/dL Amylase (30-110) U/L Lipase (23-300) U/L - Progress Air Movement: good Progress Note: 11/11/22 11:13 This patient's medical issue is 1 of moderate complexity. Level complexity in the work-up performed is based on review of the patient's past medical history, review of the patient's medication list, review the patient's drug allergy list, history present illness and physical findings on examination. Her work-up includes placement of intravenous line, infusion of 1 L normal saline solution, magnesium level, urinalysis, CBC, CMP, amylase and lipase levels. I chose not to perform a repeat CAT scan of the abdomen pelvis since she had one approximately 5 weeks ago. 11/11/22 11:42 I reviewed the work-up in this patient and interpreted the results. The patient has weakness and has hyponatremia. I spoke with Dr. Tran, the telehospita list. I reviewed the patient history, work-up performed and the results of the work-up. Together, we decided the patient would be best served being admitted in the hospital for further evaluation work-up. We will continue IV hydration and check labs in the morning as well as other studies to determine the likely cause of her hyponatremia and symptoms of weakness. Blood Culture(s) Obtained: No Antibiotics given: No Counseled pt/family regarding: lab results, diagnosis - Departure Departure Disposition: In-patient Admission Clinical Impression: Weakness, Hyponatremia, Abdominal pain Condition: Stable Critical Care Time: No Referrals: CHILO BARRETT MD [Primary Care Provider] - Follow up/PCP as directed
[2022-11-11] MEDS ORDERED: Sodium Chloride 0.9% 1000 ML 1,000 ML IV STA (10:20)
[2022-11-11] MEDS ORDERED: PROTONIX 40 MG IV IV ONE ×2 (10:20→10:23)
[2022-11-11] MEDS ORDERED: Sodium Chloride 0.9% 1000 ML 1,000 ML ONE (10:23)
[2022-11-11 10:51] LABS: Absolute Neutrophil Ct (ANC) 1.69 x10^3/uL (1.4-6.9); BASOPHIL % 0.7 % (0.0-0.4); Basophil (Absolute #) 0.02 x10^3/uL (0-0.4); Eosinophil % 0.4 % (0.00-5.0); Eosinophil (Absolute #) 0.01 x10^3/uL (0-0.5); Hematocrit 35.9 % (35-47); Hemoglobin 12.4 g/dL (12.0-16.0); IMMATURE GRAN # 0.01 x10^3u/L (0.00-0.03); IMMATURE GRAN % 0.4 % (0.00-0.4); Lymphocyte (Absolute #) 0.73 x10^3/uL (1.0-4.6); Lymphocytes % 25.6 % (24.0-44.0); Mean Cell Volume 86.5 fL (78-100); Mean Corpuscular Hemoglobin 29.9 pg (26-32); Mean Corpuscular Hgb Concent. 34.5 g/dL (32-36); Mean Platelet Volume 9.5 fL (7.5-11.0); Monocyte (Absolute #) 0.39 x10^3/uL (0.0-1.3); Monocytes % 13.7 % (0.0-12.0); Neutrophil % 59.2 % (36.0-66.0); Platelet Count 343 x10^3/uL (150-450); Red Blood Count 4.15 x10^6/uL (4.1-5.4); Red Cell Distribution Width 12.3 % (11.5-14.0); White Blood Count 2.9 x10^3/uL (4.0-10.5)
[2022-11-11 11:04] LABS: ALBUMIN 3.7 g/dL (3.5-5.0); ALKALINE PHOSPHATASE 73 U/L (38-126); AMYLASE 71 U/L (30-110); ANION GAP 12.8 MEQ/L (5-15); BLOOD UREA NITROGEN 8 mg/dL (7-17); CHLORIDE 89 mmol/L (98-107); Calcium 8.4 mg/dL (8.4-10.2); Carbon Dioxide 22 mmol/L (22-30); EST GLOMERULAR FILTRATION RATE > 60.0 ML/MIN; Glucose 91 mg/dL (74-106); LIPASE 125 U/L (23-300); Potassium 3.8 mmol/L (3.5-5.1); SGOT/AST 50 U/L (14-36); SGPT/ALT 35 U/L (0-35); Total Protein 6.3 g/dL (6.3-8.2)
[2022-11-11 11:08] LABS: SODIUM 120 mmol/L (137-145)
[2022-11-11 11:45] LABS: Appearance Clear (Clear); Bacteria None Seen /HPF (None Seen); Bilirubin Negative (Negative); Blood Negative (Negative); Epithelial Cells None Seen /HPF (None Seen); Glucose, Urine Negative (Negative); Hyaline Casts NONE SEEN /LPF (0-2); Ketones Negative (Negative); Leukocyte Esterase Negative (Negative); Nitrite Negative (Negative); Ph 6.5 (4.6-8.0); Protein,Urine Dip Negative (Negative); RBC 0-2 /HPF (0-5); Specific Gravity <=1.005 (1.005-1.030); Urobilinogen 0.2 mg/dL (0.2); WBC 0-2 /HPF (0-5)
[2022-11-11 11:48] LABS: POTASSIUM, URINE RANDOM 12.3 mmol/L (0.1-0.7)
[2022-11-11 11:52] LABS: ADD URINE CULTURE? NO (NO)
[2022-11-11] MEDS ORDERED: Zofran 4 MG/2 ML VIAL IV PRN (11:54)
[2022-11-11] MEDS ORDERED: TYLENOL 325 MG PO PRN ×2 (11:54→13:34)
[2022-11-11] MEDS ORDERED: Sodium Chloride 0.9% 1000 ML 1,000 ML IV SCH (12:00)
--- NOTE | 2022-11-11 13:21 | PCM.HP ---
History of Present Illness - Chief Complaint Chief Complaint: hyponatremia, abdominal pain Date: 11/11/22 History of Present Illness: is a 72 year old female patient of Dr. Barrett with a history of peripheral neuropathy, TIAs, hypertension, coronary disease (cardiac stent) and RSD. She went to the outpatient care clinic today and they referred her to our emergency department secondary to weakness and abdominal pain. Patient had a CT scan of the abdomen pelvis without contrast performed on 09/30/2022. The impression was duodenal circumferential wall thickening either incomplete distention versus duodenitis. There is mild diffuse fecal stasis present. Geovanni loya states in the last few days she has had liquid stools "go right through me" every time I eat there is yellow diarrhea. Patient, per her report, attempted to obtain an outpatient appointment for an upper and lower endoscopy by the [facility]. She was unable to get a ride for her appointment. Patient's complaint today is abdominal pain and weakness. Patient was offered medication for pain but refused. Sodium is 120 1 liter. NS fluid bolus gave in ER. Will start D5NS and recheck sodium Q 6 hours. Will order neuro checks Q6 hr. Medication for nausea and vomiting added. Will go ahead and consult surgery as pt was to have OP EGD and colonoscopy. She denies chest pain shortness of breath, fever, cough. - Review of Systems Constitutional: No Fever, No Chills Eyes: No Symptoms Ears, Nose, & Throat: No Symptoms Respiratory: No Cough, No Short Of Breath Cardiac: No Chest Pain, No Edema, No Syncope Abdominal/Gastrointestinal: Abdominal Pain, Diarrhea, Appetite Changes, No Nausea, No Vomiting Genitourinary Symptoms: No Dysuria Musculoskeletal: No Back Pain, No Neck Pain Skin: No Rash Neurological: No Dizziness, No Focal Weakness, No Sensory Changes Psychological: No Symptoms Endocrine: No Symptoms Hematologic/Lymphatic: No Symptoms Immunological/Allergic: No Symptoms Medications & Allergies Home Medications: Home Medication List Gabapentin [Neurontin] 800 mg PO QID 07/28/14 [History Confirmed 11/11/22] Clopidogrel Bisulfate [PLAVIX Tablet] 37.5 mg PO HS 03/28/16 [History Confirmed 11/11/22] Zolpidem Tartrate 10 mg [Ambien 10 MG] 10 mg PO QHS 07/12/18 [History Confirmed 11/11/22] Lisinopril 5 mg [Zestril 5 MG] 10 mg PO BID 04/01/21 [History Confirmed 11/11/22] Amlodipine Besylate 5 mg [Norvasc 5 mg] 5 mg PO HS 11/11/22 [History Confirmed 11/11/22] Hydrocodone/Acetaminophen [Hydrocodone-Acetamin 10-325 mg] 1 tab PO TID 11/11/22 [History Confirmed 11/11/22] Allergies/Adverse Reactions: Allergies Allergy/AdvReac Type Severity Reaction Status Date / Time iodine Allergy Intermediate Nausea and Verified 05/11/22 12:22 Vomiting penicillin G Allergy Intermediate Verified 05/11/22 12:22 codeine AdvReac Intermediate Vomiting Verified 05/11/22 12:22 - Past Medical History Past Medical History: Yes Neurological History: Peripheral Neuropathy, TIA ENT History: Cataracts Cardiac History: Hypertension, Myocardial Infarction (RI) Respiratory History: No Pertinent History Endocrine Medical History: Liver Disease Musculoskelatal History: Arthritis, Osteoporosis GI Medical History: No Pertinent History History: No Pertinent History Pyscho-Social History: No Pertinent History Reproductive Disorders: No Pertinent History Comment: RSD ( reflex sympathetic dystrophy) in L Upper arm, neck and face - Female History Are you now?: No - Past Surgical History Past Surgical History: Yes Neuro Surgical History: No Pertinent History Cardiac History: Cardiac Catheterization, Cardiac Stent Respiratory Surgery: No Pertinent History GI Surgical History: No Pertinent History Genitourinary Surgical Hx: No Pertinent History Musculskeletal Surgical Hx: Orthopedic Surgery Female Surgical History: Section, Hysterectomy Other Surgical History: NECK- cadaver bone and nerve surgery - Social History Smoking Status: Never smoker Exposure to second hand smoke: No Alcohol: None Drug Use: none Significant Family History: heart disease, hypertension - Physical Exam Vital Signs: Vital Signs - 24 hr Temp Pulse Resp BP BP Pulse Ox 11/11/22 12:29 97.6 F 72 21 138/63 97 11/11/22 11:24 74 12 142/59 98 11/11/22 11:10 78 18 127/64 11/11/22 11:00 67 13 123/72 98 11/11/22 10:50 69 14 121/67 100 11/11/22 10:41 71 19 131/84 98 11/11/22 10:30 72 20 118/84 11/11/22 10:03 97.4 F 76 20 122/69 98 General Appearance: no apparent distress, alert Neurologic Exam: alert, oriented x 3, cooperative, normal mood/affect, nml cerebellar function, nml station & gait, sensation nml, No motor deficits Eye Exam: PERRL/EOMI, eyes nml inspection Ears, Nose, Throat Exam: normal ENT inspection, TMs normal, pharynx normal, moist mucous membranes Neck Exam: normal inspection, non-tender, supple, full range of motion Respiratory Exam: normal breath sounds, lungs clear, No respiratory distress Cardiovascular Exam: regular rate/rhythm, normal heart sounds, normal peripheral pulses Gastrointestinal/Abdomen Exam: soft, normal bowel sounds, tenderness (Generalized with palpation), No mass Back Exam: normal inspection, normal range of motion, No CVA tenderness, No vertebral tenderness Extremity Exam: normal inspection, normal range of motion, pelvis stable Skin Exam: normal color, warm, dry, No rash Lymphatic Exam: No adenopathy Results - Labs Lab/Micro Results: Lab Results-Last 24 Hours 11/11/22 11/11/22 11/11/22 Range/Units 10:20 10:40 10:40 WBC 2.9 L (4.0-10.5) x10^3/uL RBC 4.15 (4.1-5.4) x10^6/uL Hgb 12.4 (12.0-16.0) g/dL Hct 35.9 (35-47) % MCV 86.5 (78-100) fL MCH 29.9 (26-32) pg MCHC 34.5 (32-36) g/dL RDW 12.3 (11.5-14.0) % Plt Count 343 (150-450) x10^3/uL MPV 9.5 (7.5-11.0) fL Gran % 59.2 (36.0-66.0) % Immature Gran % (Auto) 0.4 (0.00-0.4) % Nucleat RBC Rel Count 0.0 (0.00-0.1) % Eos # (Auto) 0.01 (0-0.5) x10^3/uL Immature Gran # (Auto) 0.01 (0.00-0.03) x10^3u/L Absolute Lymphs (auto) 0.73 L (1.0-4.6) x10^3/uL Absolute Monos (auto) 0.39 (0.0-1.3) x10^3/uL Absolute Nucleated RBC 0.00 (0.00-0.01) x10^3u/L Lymphocytes % 25.6 (24.0-44.0) % Monocytes % 13.7 H (0.0-12.0) % Eosinophils % 0.4 (0.00-5.0) % Basophils % 0.7 (0.0-0.4) % Absolute Granulocytes 1.69 (1.4-6.9) x10^3/uL Basophils # 0.02 (0-0.4) x10^3/uL Sodium 120 L* (137-145) mmol/L Potassium 3.8 (3.5-5.1) mmol/L Chloride 89 L (98-107) mmol/L Carbon Dioxide 22 (22-30) mmol/L Anion Gap 12.8 (5-15) MEQ/L BUN 8 (7-17) mg/dL Creatinine 0.60 (0.52-1.04) mg/dL Estimated GFR > 60.0 ML/MIN Glucose 91 (74-106) mg/dL Lactic Acid 1.0 (0.4-2.0) Calcium 8.4 (8.4-10.2) mg/dL Magnesium (1.6-2.3) mg/dL Total Bilirubin 0.20 (0.2-1.3) mg/dL AST 50 H (14-36) U/L ALT 35 (0-35) U/L Alkaline Phosphatase 73 (38-126) U/L Serum Total Protein 6.3 (6.3-8.2) g/dL Albumin 3.7 (3.5-5.0) g/dL Amylase 71 (30-110) U/L Lipase 125 (23-300) U/L Urine Color (Yellow) Urine Appearance (Clear) Urine pH (4.6-8.0) Ur Specific Doss (1.005-1.030) Urine Protein (Negative) Urine Glucose (UA) (Negative) mg/dL Urine Ketones (Negative) Urine Blood (Negative) Urine Nitrite (Negative) Urine Bilirubin (Negative) Urine Urobilinogen (0.2) mg/dL Ur Leukocyte Esterase (Negative) U Hyaline Cast (Auto) (0-2) /LPF Urine Microscopic RBC (0-5) /HPF Urine Microscopic WBC (0-5) /HPF Ur Epithelial Cells (None Seen) /HPF Urine Bacteria (None Seen) /HPF Urine Culture Reflexed (NO) Urine Sodium (30-90) mmol/L Urine Potassium (0.1-0.7) mmol/L 11/11/22 11/11/22 11/11/22 Range/Units 10:40 11:26 11:27 WBC (4.0-10.5) x10^3/uL RBC (4.1-5.4) x10^6/uL Hgb (12.0-16.0) g/dL Hct (35-47) % MCV (78-100) fL MCH (26-32) pg MCHC (32-36) g/dL RDW (11.5-14.0) % Plt Count (150-450) x10^3/uL MPV (7.5-11.0) fL Gran % (36.0-66.0) % Immature Gran % (Auto) (0.00-0.4) % Nucleat RBC Rel Count (0.00-0.1) % Eos # (Auto) (0-0.5) x10^3/uL Immature Gran # (Auto) (0.00-0.03) x10^3u/L Absolute Lymphs (auto) (1.0-4.6) x10^3/uL Absolute Monos (auto) (0.0-1.3) x10^3/uL Absolute Nucleated RBC (0.00-0.01) x10^3u/L Lymphocytes % (24.0-44.0) % Monocytes % (0.0-12.0) % Eosinophils % (0.00-5.0) % Basophils % (0.0-0.4) % Absolute Granulocytes (1.4-6.9) x10^3/uL Basophils # (0-0.4) x10^3/uL Sodium (137-145) mmol/L Potassium (3.5-5.1) mmol/L Chloride (98-107) mmol/L Carbon Dioxide (22-30) mmol/L Anion Gap (5-15) MEQ/L BUN (7-17) mg/dL Creatinine (0.52-1.04) mg/dL Estimated GFR ML/MIN Glucose (74-106) mg/dL Lactic Acid (0.4-2.0) Calcium (8.4-10.2) mg/dL Magnesium 1.6 (1.6-2.3) mg/dL Total Bilirubin (0.2-1.3) mg/dL AST (14-36) U/L ALT (0-35) U/L Alkaline Phosphatase (38-126) U/L Serum Total Protein (6.3-8.2) g/dL Albumin (3.5-5.0) g/dL Amylase (30-110) U/L Lipase (23-300) U/L Urine Color Yellow (Yellow) Urine Appearance Clear (Clear) Urine pH 6.5 (4.6-8.0) Ur Specific Doss <=1.005 (1.005-1.030) Urine Protein Negative (Negative) Urine Glucose (UA) Negative (Negative) mg/dL Urine Ketones Negative (Negative) Urine Blood Negative (Negative) Urine Nitrite Negative (Negative) Urine Bilirubin Negative (Negative) Urine Urobilinogen 0.2 (0.2) mg/dL Ur Leukocyte Esterase Negative (Negative) U Hyaline Cast (Auto) NONE SEEN (0-2) /LPF Urine Microscopic RBC 0-2 (0-5) /HPF Urine Microscopic WBC 0-2 (0-5) /HPF Ur Epithelial Cells None Seen (None Seen) /HPF Urine Bacteria None Seen (None Seen) /HPF Urine Culture Reflexed NO (NO) Urine Sodium 19 L (30-90) mmol/L Urine Potassium 12.3 H (0.1-0.7) mmol/L Assessment/Plan (1) Abdominal pain Current Visit: Yes Status: Acute Assessment & Plan: -CT abd/pelvis from 09/30/22: Impression: 1. Duodenal circumferential wall thickening either incomplete distention versus duodenitis. 2. Again mild diffuse fecal stasis, minimal arteriosclerotic disease, and minimal degenerative spondylosis. 3. Remaining CT abdomen/pelvis without contrast exam is negative. - Protonix 40mg IV daily started in ER- Continue IP - PRN pain meds - CT Abd/Pelvis w/o contrast as pt is allergic to iodine - GS consult- ordered gallbladder US - Will need to hold Plavix if procedure is needed Code(s): R10.9 - UNSPECIFIED ABDOMINAL PAIN (2) Hyponatremia Current Visit: Yes Status: Acute Assessment & Plan: - 2/2 N/V/D -Na+ 120 in ER - Start D5 NS @ 90 ml/hr - recheck Na+ Q6 hr - Consider ICU if Na+ < 120 - seizure precautions - Neuro checks Q6 - Tele Code(s): E87.1 - HYPO-OSMOLALITY AND HYPONATREMIA (3) Nausea, vomiting, and diarrhea Current Visit: Yes Status: Acute Assessment & Plan: - Zofran Q 6 PRN - Stool studies - GS consult for possible EGD/ Colonoscopy - IV fluids - Protonix - Pt reports no N/V at this time Code(s): R11.2 - NAUSEA WITH VOMITING, UNSPECIFIED; R19.7 - DIARRHEA, UNSPECIFIED (4) Weakness Current Visit: Yes Status: Acute Assessment & Plan: - bedrest with BRP - bed alarm VTE: Plavix, SCD PPI: Protonix D/C Plan: 1-2 days Code status: Full Code(s): R53.1 - WEAKNESS
[2022-11-11] MEDS ORDERED: Dextrose 5%-NS IV Solution 1000 ML 1,000 ML IV SCH ×2 (13:30→18:30)
[2022-11-11] MEDS ORDERED: Neurontin PO SCH (14:00)
[2022-11-11] MEDS: Neurontin PO SCH ×3 (14:39→21:14)
[2022-11-11] MEDS: HYDROCODONE-ACETAMIN 10-325 MG PO SCH ×2 (14:39→21:14)
[2022-11-11 14:52] LABS: 027 TOX PROD PRESUMPTIVE NEGATIVE (NEGATIVE); TOXIGENIC C. DIFF ORG NEGATIVE (NEGATIVE)
[2022-11-11] MEDS ORDERED: NON-FORMULARY ITEM (Gabapentin [Neurontin] 800 MG Tablet) PO SCH (17:00)
--- NOTE | 2022-11-11 17:11 | XRAY ---
Indication: Abdomen pain and diarrhea. Multiple contiguous axial images obtained through the abdomen and pelvis without contrast. Comparison: September 30, 2022 Lung bases clear of infiltrate and effusion. Heart not enlarged. Noncontrasted stomach and bowel loops nonobstructed. Appendix not visualized. Again hysterectomy. No free fluid/air. Remaining liver, gallbladder, pancreas, spleen, adrenal glands, kidneys, ureters, and bladder are unremarkable for noncontrast exam. Stable minimal aortoiliac calcifications without AAA. Osseous structures intact again with minimal degenerative changes throughout the spine. Impression: Again chronic findings including arteriosclerotic disease and degenerative spondylosis. No new/acute findings on this noncontrast exam.
[2022-11-11 17:37] LABS: ALBUMIN 3.8 g/dL (3.5-5.0); ALKALINE PHOSPHATASE 74 U/L (38-126); ANION GAP 12.1 MEQ/L (5-15); BLOOD UREA NITROGEN 7 mg/dL (7-17); CHLORIDE 99 mmol/L (98-107); Calcium 8.3 mg/dL (8.4-10.2); Carbon Dioxide 22 mmol/L (22-30); EST GLOMERULAR FILTRATION RATE > 60.0 ML/MIN; Glucose 108 mg/dL (74-106); Potassium 4.1 mmol/L (3.5-5.1); SGOT/AST 48 U/L (14-36); SGPT/ALT 34 U/L (0-35); Total Protein 6.6 g/dL (6.3-8.2)
[2022-11-11 17:48] LABS: SODIUM 128 mmol/L (137-145)
[2022-11-11 19:20] VITALS: RESP 16
[2022-11-11] MEDS: Zestril 5 MG PO SCH (21:14)
[2022-11-11] MEDS ORDERED: PLAVIX Tablet PO SCH (22:00)
[2022-11-11] MEDS ORDERED: NORVASC 5 MG PO SCH (22:00)
[2022-11-11] MEDS ORDERED: Ambien 10 MG PO SCH (22:00)
[2022-11-11 23:09] LABS: ALBUMIN 3.6 g/dL (3.5-5.0); ALKALINE PHOSPHATASE 70 U/L (38-126); ANION GAP 10.5 MEQ/L (5-15); BLOOD UREA NITROGEN 9 mg/dL (7-17); CHLORIDE 101 mmol/L (98-107); Calcium 8.2 mg/dL (8.4-10.2); Carbon Dioxide 23 mmol/L (22-30); Creatinine 1 0.59 mg/dL (0.52-1.04); EST GLOMERULAR FILTRATION RATE > 60.0 ML/MIN; Glucose 101 mg/dL (74-106); Potassium 3.8 mmol/L (3.5-5.1); SGOT/AST 43 U/L (14-36); SGPT/ALT 32 U/L (0-35); SODIUM 131 mmol/L (137-145); Total Protein 6.3 g/dL (6.3-8.2)
[2022-11-12] MEDS ORDERED: Dextrose 5%-NS IV Solution 1000 ML 1,000 ML IV ONE (04:04)
[2022-11-12 05:02] LABS: Absolute Neutrophil Ct (ANC) 0.46 x10^3/uL (1.4-6.9); Basophil (Absolute #) 0.02 x10^3/uL (0-0.4); Eosinophil % 0.5 % (0.00-5.0); Eosinophil (Absolute #) 0.01 x10^3/uL (0-0.5); Hematocrit 32.5 % (35-47); Hemoglobin 11.3 g/dL (12.0-16.0); Lymphocyte (Absolute #) 1.22 x10^3/uL (1.0-4.6); Lymphocytes % 60.7 % (24.0-44.0); Mean Cell Volume 86.9 fL (78-100); Mean Corpuscular Hemoglobin 30.2 pg (26-32); Mean Corpuscular Hgb Concent. 34.8 g/dL (32-36); Mean Platelet Volume 9.5 fL (7.5-11.0); Monocytes % 14.9 % (0.0-12.0); Neutrophil % 22.9 % (36.0-66.0); Platelet Count 321 x10^3/uL (150-450); Red Blood Count 3.74 x10^6/uL (4.1-5.4)
[2022-11-12 05:18] LABS: ALKALINE PHOSPHATASE 56 U/L (38-126); BLOOD UREA NITROGEN 8 mg/dL (7-17); CHLORIDE 104 mmol/L (98-107); Calcium 7.8 mg/dL (8.4-10.2); Carbon Dioxide 20 mmol/L (22-30); Creatinine 1 0.51 mg/dL (0.52-1.04); EST GLOMERULAR FILTRATION RATE > 60.0 ML/MIN; Glucose 94 mg/dL (74-106); Potassium 3.5 mmol/L (3.5-5.1); SGOT/AST 38 U/L (14-36); SGPT/ALT 28 U/L (0-35); SODIUM 132 mmol/L (137-145); Total Protein 5.6 g/dL (6.3-8.2)
[2022-11-12 05:37] LABS: Eosinophil 2 % (0.00-3.0); Lymphocytes 68 % (24-44); Metamyelocyte 2 %; Monocyte 3 % (0.0-12.0); Neutrophils 24 % (36.0-66.0); Promyelocyte 1 %; Total Cells Counted 100
[2022-11-12 05:40] LABS: ANISOCYTOSIS 1+; Burr Cells 1+; Platelet Estimate NORMAL (NORMAL)
[2022-11-12 06:53] VITALS: O2SAT 97
[2022-11-12] MEDS ORDERED: PROTONIX 40 MG IV IV SCH (10:00)
--- NOTE | 2022-11-12 10:30 | CONS ---
CONSULT DATE: 11/11/2022 HISTORY: This patient was seen for Dr. Mchugh who is youth corrections officer for our group today. As I was here doing some outpatient cases, he asked that I stop by and check on the patient. The patient is a 72-year-old female admitted for weakness and some loose stools. She denies any nausea or vomiting currently. She had a white count of 2.9, hemoglobin 12.4, PLT count 343,000. Her sodium was low at 131. She complains of some lower abdominal aches worse when she eats at times. She said she did not have a gallbladder ultrasound or work up recently. She did not have a CT scan this admission. She has not had recent endoscopy. PAST MEDICAL HISTORY: Cataracts in the past, arthritis, osteoporosis, hypertension, myocardial infarction, reflex sympathetic dystrophy in left upper arm, neck and face in the past. PAST SURGICAL HISTORY: Coronary stents. Hysterectomy. section. Neck nerve surgery whether it was a fusion or not it is hard to tell. MEDICATIONS: Neurontin, Plavix, Ambien, Zestril, Norvasc. ALLERGIES: CODEINE (VOMITING). PENICILLIN G. IODINE (NAUSEA AND VOMITING). FAMILY HISTORY: Negative in regards to this specific problem. Family history of colon cancer. SOCIAL HISTORY: No smoking or alcohol abuse. REVIEW OF SYSTEMS: Fourteen systems reviewed per admission assessment. No chest pain or palpitations other systems negative or noncontributory as above and per preadmission questionnaire. PHYSICAL EXAMINATION: GENERAL: No acute distress. HEENT: Sclera nonicteric. EOMI. Oral mucous membranes moist. NECK: No JVD. CHEST: Equal excursion, nonlabored breathing. CVS: Regular rhythm and pulse. ABDOMEN: Soft. No peritoneal signs. She is thin individual. EXTREMITIES: No edema. NEURO: Alert. PSYCH: Appropriate mood and affect. IMPRESSION: A 72-year-old with multiple medical problems. She has chronic pain on chronic narcotics. She has heart disease. She is in hyponatremia. She has had some loose stools. She denies nausea or vomiting. She does have some vague mid to lower abdominal aches. She has not had a gallbladder ultrasound. She has not had CT scan. Unclear etiology of significant electrolyte abnormalities. She is not NPO now. She might benefit from upper and lower endoscopy down the road if she does better in the short term. She is not NPO and recommend checking a gallbladder ultrasound and a CT scan to evaluate for other etiology. She does have chronic heart disease. She could have some chronic vascular issues causing some of her persistent symptoms. If that is the case she might need to be addressed at a tertiary center. Either way, I am seeing this patient for Dr. Mchugh who is youth corrections officer for our group today. She is to have a CT abdomen and pelvis with oral and IV contrast, gallbladder ultrasound and have the results called to Dr. Mchugh. If she is stable and the scan and ultrasound unremarkable, she will benefit from endoscopy later in the week. I am seeing this patient for Dr. Mchugh who is youth corrections officer for our group today.
[2022-11-12] MEDS: Neurontin PO SCH ×3 (10:45→13:26)
[2022-11-12] MEDS: HYDROCODONE-ACETAMIN 10-325 MG PO SCH (10:45)
[2022-11-12] MEDS: Zestril 5 MG PO SCH (10:45)
--- NOTE | 2022-11-12 11:00 | XRAY ---
Indication: Abdomen pain and diarrhea. Two-dimensional gallbladder sonogram performed. Comparison: None Visualized gallbladder normally distended without gallstones, wall thickening, or pericholecystic fluid. Common bile duct measures 3.8 mm. No intrahepatic biliary distention. Remaining visualized liver, pancreas, and right kidney are sonographically unremarkable. Right kidney measures 8.2 cm in length. Impression: Negative gallbladder sonogram.
[2022-11-12 11:44] LABS: ALBUMIN 3.2 g/dL (3.5-5.0); ALKALINE PHOSPHATASE 63 U/L (38-126); ANION GAP 9.6 MEQ/L (5-15); BLOOD UREA NITROGEN 5 mg/dL (7-17); CHLORIDE 105 mmol/L (98-107); Calcium 8.1 mg/dL (8.4-10.2); Carbon Dioxide 21 mmol/L (22-30); Creatinine 1 0.48 mg/dL (0.52-1.04); EST GLOMERULAR FILTRATION RATE > 60.0 ML/MIN; Glucose 99 mg/dL (74-106); Potassium 3.8 mmol/L (3.5-5.1); SGOT/AST 38 U/L (14-36); SGPT/ALT 28 U/L (0-35); SODIUM 132 mmol/L (137-145); Total Protein 5.7 g/dL (6.3-8.2)
[2022-11-12 11:53] VITALS: BP 129/76; PULSE 76; TEMP 98.6
--- NOTE | 2022-11-12 12:18 | PCM.DS ---
Discharge Summary Date of Admission: 11/11/22 11:52 Date of Discharge: 11/12/22 Admitting Physician: DEMIAN WALLS MD Consults: Consults on Case 11/11/22 12:18 Consult Surgery ROUTINE Primary Care Provider: CHILO FARFAN MAGALY Allergies Allergies iodine Allergy (Intermediate, Verified 05/11/22 12:22) Nausea and Vomiting penicillin G Allergy (Intermediate, Verified 05/11/22 12:22) states unknown , as a child codeine Adverse Reaction (Intermediate, Verified 05/11/22 12:22) Vomiting Hospital Summary - Hospital Course Hospital Course: 11/11/22 is a 72 year old female patient of Dr. Farfan with a history of peripheral neuropathy, TIAs, hypertension, coronary disease (cardiac stent) and RSD. She went to the outpatient care clinic today and they referred her to our emergency department secondary to weakness and abdominal pain. Patient had a CT scan of the abdomen pelvis without contrast performed on 09/30/2022. The impression was duodenal circumferential wall thickening either incomplete distention versus duodenitis. There is mild diffuse fecal stasis present. Patient states in the last few days she has had liquid stools "go right through me" every time I eat there is yellow diarrhea. Patient, per her report, attempted to obtain an outpatient appointment for an upper and lower endoscopy by the [facility]. She was unable to get a ride for her appointment. Patient's complaint today is abdominal pain and weakness. Patient was offered medication for pain but refused. Sodium is 120 1 liter. NS fluid bolus gave in ER. Will start D5NS and recheck sodium Q 6 hours. Will order neuro checks Q6 hr. Medication for nausea and vomiting added. Will go ahead and consult surgery as pt was to have OP EGD and colonoscopy. She denies chest pain shortness of breath, fever, cough. 11/12/22 Pt sitting up in bed. She is feeling much better today. She is wanting to go home and f/u with surgery OP. CT showed no new findings. Gallbladder US was negative. She is no longer having diarrhea. Abd. pain has improved and she can eat without pain today. She denies CP, SOB, N/V. - Vitals & Intake/Output Vital Signs: Vital Signs Temperature 98.6 F 11/12/22 11:52 Pulse Rate 76 11/12/22 11:52 Respiratory Rate 16 11/12/22 11:52 Blood Pressure 129/76 11/12/22 11:52 O2 Sat by Pulse Oximetry 97 11/12/22 11:52 Intake & Output: Intake & Output 11/10/22 11/11/22 11/12/22 11/13/22 11:59 11:59 11:59 11:59 Intake Total 1780 Output Total 300 Balance 1480 Weight 38.1 kg 37 kg - Lab Result Diagrams: 11/12/22 04:52 11/12/22 11:15 Lab Results-Last 24 Hrs: Lab Results-Last 24 Hours 11/11/22 11/11/22 11/11/22 Range/Units 14:00 17:18 22:50 WBC (4.0-10.5) x10^3/uL RBC (4.1-5.4) x10^6/uL Hgb (12.0-16.0) g/dL Hct (35-47) % MCV (78-100) fL MCH (26-32) pg MCHC (32-36) g/dL RDW (11.5-14.0) % Plt Count (150-450) x10^3/uL MPV (7.5-11.0) fL Gran % (36.0-66.0) % Immature Gran % (Auto) (0.00-0.4) % Nucleat RBC Rel Count (0.00-0.1) % Eos # (Auto) (0-0.5) x10^3/uL Immature Gran # (Auto) (0.00-0.03) x10^3u/L Absolute Lymphs (auto) (1.0-4.6) x10^3/uL Absolute Monos (auto) (0.0-1.3) x10^3/uL Absolute Nucleated RBC (0.00-0.01) x10^3u/L Lymphocytes % (24.0-44.0) % Monocytes % (0.0-12.0) % Eosinophils % (0.00-5.0) % Basophils % (0.0-0.4) % Absolute Granulocytes (1.4-6.9) x10^3/uL Segmented Neutrophils (36.0-66.0) % Lymphocytes (Manual) (24-44) % Monocytes (Manual) (0.0-12.0) % Eosinophils (Manual) (0.00-3.0) % Basophils # (0-0.4) x10^3/uL Metamyelocytes % Promyelocytes % Platelet Estimate (NORMAL) RBC Morphology Anisocytosis [place] Cells Smear Path Review Sodium 128 L D 131 L (137-145) mmol/L Potassium 4.1 3.8 (3.5-5.1) mmol/L Chloride 99 101 (98-107) mmol/L Carbon Dioxide 22 23 (22-30) mmol/L Anion Gap 12.1 10.5 (5-15) MEQ/L BUN 7 9 (7-17) mg/dL Creatinine 0.50 L 0.59 (0.52-1.04) mg/dL Estimated GFR > 60.0 > 60.0 ML/MIN Glucose 108 H 101 (74-106) mg/dL Calcium 8.3 L 8.2 L (8.4-10.2) mg/dL Total Bilirubin 0.20 0.20 (0.2-1.3) mg/dL AST 48 H 43 H (14-36) U/L ALT 34 32 (0-35) U/L Alkaline Phosphatase 74 70 (38-126) U/L Serum Total Protein 6.6 6.3 (6.3-8.2) g/dL Albumin 3.8 3.6 (3.5-5.0) g/dL C. difficile Screen NEGATIVE (NEGATIVE) C.difficile [id number] PRESUMPTIVE NEGATIVE (NEGATIVE) 11/12/22 11/12/22 11/12/22 Range/Units 04:52 04:52 11:15 WBC 2.0 L (4.0-10.5) x10^3/uL RBC 3.74 L (4.1-5.4) x10^6/uL Hgb 11.3 L (12.0-16.0) g/dL Hct 32.5 L (35-47) % MCV 86.9 (78-100) fL MCH 30.2 (26-32) pg MCHC 34.8 (32-36) g/dL RDW 13.0 (11.5-14.0) % Plt Count 321 (150-450) x10^3/uL MPV 9.5 (7.5-11.0) fL Gran % 22.9 L (36.0-66.0) % Immature Gran % (Auto) 0.0 (0.00-0.4) % Nucleat RBC Rel Count 0.0 (0.00-0.1) % Eos # (Auto) 0.01 (0-0.5) x10^3/uL Immature Gran # (Auto) 0.00 (0.00-0.03) x10^3u/L Absolute Lymphs (auto) 1.22 (1.0-4.6) x10^3/uL Absolute Monos (auto) 0.30 (0.0-1.3) x10^3/uL Absolute Nucleated RBC 0.00 (0.00-0.01) x10^3u/L Lymphocytes % 60.7 H (24.0-44.0) % Monocytes % 14.9 H (0.0-12.0) % Eosinophils % 0.5 (0.00-5.0) % Basophils % 1.0 (0.0-0.4) % Absolute Granulocytes 0.46 L (1.4-6.9) x10^3/uL Segmented Neutrophils 24 L (36.0-66.0) % Lymphocytes (Manual) 68 H (24-44) % Monocytes (Manual) 3 (0.0-12.0) % Eosinophils (Manual) 2 (0.00-3.0) % Basophils # 0.02 (0-0.4) x10^3/uL Metamyelocytes 2 % Promyelocytes 1 % Platelet Estimate NORMAL (NORMAL) RBC Morphology ABNORMAL Anisocytosis 1+ [place] Cells 1+ Smear Path Review Pending Sodium 132 L 132 L (137-145) mmol/L Potassium 3.5 3.8 (3.5-5.1) mmol/L Chloride 104 105 (98-107) mmol/L Carbon Dioxide 20 L 21 L (22-30) mmol/L Anion Gap 11.0 9.6 (5-15) MEQ/L BUN 8 5 L (7-17) mg/dL Creatinine 0.51 L 0.48 L (0.52-1.04) mg/dL Estimated GFR > 60.0 > 60.0 ML/MIN Glucose 94 99 (74-106) mg/dL Calcium 7.8 L 8.1 L (8.4-10.2) mg/dL Total Bilirubin 0.10 L 0.20 (0.2-1.3) mg/dL AST 38 H 38 H (14-36) U/L ALT 28 28 (0-35) U/L Alkaline Phosphatase 56 63 (38-126) U/L Serum Total Protein 5.6 L 5.7 L (6.3-8.2) g/dL Albumin 3.0 L 3.2 L (3.5-5.0) g/dL C. difficile Screen (NEGATIVE) C.difficile [id number] (NEGATIVE) - Radiology Exams Ordered Rad Exams-Entire Visit: Radiology Procedures Category Date Time Status ABDOMEN AND PELVIS W/0 CONTRAS [CT] Stat Exams 11/11/22 14:57 Completed GALLBLADDER [US] Routine Exams 11/12/22 08:00 Completed Discharge Exam General Appearance: no apparent distress, alert Neurologic Exam: alert, oriented x 3, cooperative, normal mood/affect, nml cerebellar function, sensation nml, No motor deficits Eye Exam: PERRL, EOMI, eyes nml inspection Ears, Nose, Throat Exam: normal ENT inspection, pharynx normal, moist mucous membranes Neck Exam: normal inspection, non-tender, supple, full range of motion Respiratory Exam: normal breath sounds, lungs clear, No respiratory distress Cardiovascular Exam: regular rate/rhythm, normal heart sounds Gastrointestinal/Abdomen Exam: soft, No tenderness, No mass Pelvic Exam: deferred Rectal Exam: deferred Back Exam: normal inspection, normal range of motion, No CVA tenderness, No vertebral tenderness Extremity Exam: normal inspection, normal range of motion Skin Exam: normal color, warm, dry Final Diagnosis/Problem List - Final Discharge Diagnosis/Problem (1) Abdominal pain Current Visit: Yes Status: Acute Code(s): R10.9 - UNSPECIFIED ABDOMINAL PAIN (2) Hyponatremia Current Visit: Yes Status: Acute Code(s): E87.1 - HYPO-OSMOLALITY AND HYPONATREMIA (3) Nausea, vomiting, and diarrhea Current Visit: Yes Status: Acute Code(s): R11.2 - NAUSEA WITH VOMITING, UNSPECIFIED; R19.7 - DIARRHEA, UNSPECIFIED (4) Weakness Current Visit: Yes Status: Acute Assessment & Plan: (1) Abdominal pain Current Visit: Yes Status: Acute Assessment & Plan: -CT abd/pelvis from 09/30/22: Impression: 1. Duodenal circumferential wall thickening either incomplete distention versus duodenitis. 2. Again mild diffuse fecal stasis, minimal arteriosclerotic disease, and minimal degenerative spondylosis. 3. Remaining CT abdomen/pelvis without contrast exam is negative. - Protonix 40mg IV daily started in ER- Continue IP - PRN pain meds - CT Abd/Pelvis w/o contrast as pt is allergic to iodine - GS consult- ordered gallbladder US - Will need to hold Plavix if procedure is needed 11/12 - CT abd/ pelvis 11/11/22 Again chronic findings including arteriosclerotic disease and degenerative spondylosis. No new/acute findings on this noncontrast exam. - Gallbladder US 11/12/22 Impression: Negative gallbladder sonogram. - diarrhea has resolved, no abd. oain with eating - would like to f/u OP Code(s): R10.9 - UNSPECIFIED ABDOMINAL PAIN (2) Hyponatremia Current Visit: Yes Status: Acute Assessment & Plan: - 2/2 N/V/D - Na+ 120 in ER - Start D5 NS @ 90 ml/hr - recheck Na+ Q6 hr - Consider ICU if Na+ < 120 - seizure precautions - Neuro checks Q6 - Tele 11/12 - NA+ 132 - sxs resolved - now mild hyponatremia Code(s): E87.1 - HYPO-OSMOLALITY AND HYPONATREMIA (3) Nausea, vomiting, and diarrhea Current Visit: Yes Status: Acute Assessment & Plan: - Zofran Q 6 PRN - Stool studies - GS consult for possible EGD/ Colonoscopy - IV fluids - Protonix - Pt reports no N/V at this time Code(s): R11.2 - NAUSEA WITH VOMITING, UNSPECIFIED; R19.7 - DIARRHEA, UNSPECIFIED (4) Weakness Current Visit: Yes Status: Acute Assessment & Plan: - bedrest with BRP - bed alarm 11/12 - improved- up and walking in room Code(s): R53.1 - WEAKNESS - Discharge Discharge Date: 11/12/22 Disposition: Home, Self-Care Condition: Stable Prescriptions: No Action Gabapentin [Neurontin] 800 mg PO QID Clopidogrel Bisulfate [PLAVIX Tablet] 37.5 mg PO HS Zolpidem Tartrate 10 mg [Ambien 10 MG] 10 mg PO QHS Lisinopril 5 mg [Zestril 5 MG] 10 mg PO BID Amlodipine Besylate 5 mg [Norvasc 5 mg] 5 mg PO HS Hydrocodone/Acetaminophen [Hydrocodone-Acetamin 10-325 mg] 1 tab PO TID Additional Instructions: F/u with general surgery as scheduled in [place]. Appointment has been made. Nurse will give information on date and time. Follow up with: CHILO FARFAN MD [Primary Care Provider] -
--- NOTE | 2022-11-12 14:25 | PCM.DCORD ---
- Discharge Discharge Date: 11/12/22 Disposition: Home, Self-Care Condition: Stable Prescriptions: Continue Gabapentin [Neurontin] 800 mg PO QID Clopidogrel Bisulfate [PLAVIX Tablet] 37.5 mg PO HS Zolpidem Tartrate 10 mg [Ambien 10 MG] 10 mg PO QHS Lisinopril 5 mg [Zestril 5 MG] 10 mg PO BID Amlodipine Besylate 5 mg [Norvasc 5 mg] 5 mg PO HS Hydrocodone/Acetaminophen [Hydrocodone-Acetamin 10-325 mg] 1 tab PO TID Instructions: Hyponatremia (DC) Additional Instructions: F/u with general surgery as scheduled in [place]. Appointment has been made. Nurse will give information on date and time. Follow up with: CHILO FARFAN MD [Primary Care Provider] - Forms: Discharge Instructions
== END 2022-11-12 15:15 | disposition home or self-care (01) | DRG 392 ==
LOC: ED 09:50 → MED SURG 11:52
PROVIDERS: ADMIT Internal Medicine; ATTEND Internal Medicine
DX: R10.9 Unspecified abdominal pain (principal); E87.1 Hypo-osmolality and hyponatremia; R11.2 Nausea with vomiting, unspecified; R53.1 Weakness; I10 Essential (primary) hypertension; I25.10 Atherosclerotic heart disease of native coronary artery without angina pectoris; I25.2 Old myocardial infarction; Z79.01 Long term (current) use of anticoagulants; Z79.899 Other long term (current) drug therapy; Z20.828 Contact with and (suspected) exposure to other viral communicable diseases
CPT/HCPCS: 36415; 74176; 76705; 80053; 81001; 82150; 83605; 83690; 83735; 83935; 84133; 84300; 85025; 87493; 96360; 96374; 99213; 99284; Q3014; A9270-GY

== ENCOUNTER → 2023-11-22 | Emergency (ER) | payer MEDICARE, OTHER | LOC: ED 13:59 | DX: Z53.8 Procedure and treatment not carried out for other reasons (principal) ==